=== PATIENT | female | born 1990 | race Caucasian/White ===

== ENCOUNTER → 2017-11-06 16:58 | Emergency (ER) | payer BC, SELFPAY ==
--- NOTE | 2017-11-06 16:58 | DT_ITS ---
This patient was seen during an EMR downtime November 02, 2017 - November 09, 2017. This patient may have a combination of paper and electronic documentation or all paper documentation. All documentation is viewable within the e-chart portion of [facility] for each patient visit.
--- NOTE | 2017-11-06 18:00 | CT_ITS ---
STUDY: CT ABDOMEN AND PELVIS WITHOUT CONTRAST REASON FOR EXAM: Female, 27 years old. Left-sided flank pain RADIATION DOSAGE (If Supplied By Facility): CTDIvol = ( 8.05 ) mGy, DLP = ( 358.65 ) mGycm TECHNIQUE: Transaxial images were obtained from the dome of the diaphragm to the symphysis pubis without oral contrast, and without intravenous contrast. Sagittal and coronal images were reconstructed. Individualized dose optimization techniques were used for this CT. COMPARISON: None. FINDINGS: Lung bases demonstrate no evidence for consolidative process. Bibasilar subsegmental atelectasis is seen. Small 3 to 4 mm nodules in the right lower lobe possibly noncalcified granulomas. No pericardial effusion. Liver and spleen appear unremarkable. Adrenal glands and the pancreas are grossly within normal limits. The gallbladder is nondistended. Bowel gas pattern is nonobstructive. Uterus appears prominent with thickened endometrium and prominent left adnexa possibly a left-sided ovarian cyst measuring approximately 2.4 cm which can be assessed with sonography. Trace amount of free fluid in the pelvis suspected. Colonic diverticulosis. No evidence for acute diverticulitis. Scattered mesenteric lymph nodes also seen which appears slightly prominent in size may related with mesenteric adenitis. Appendix appears nonenlarged. Kidneys demonstrate no evidence for hydronephrosis. Pelvic phleboliths. No evidence for acute lumbar spine fractures. No evidence for spondylolysis. IMPRESSION: No evidence for obstructive uropathy. No evidence for acute appendicitis. Mild colonic diverticulosis without evidence for acute diverticulitis. Few scattered nonspecific mesenteric lymph nodes may related with mesenteric adenitis. Prominent uterus and left adnexa with possible left ovarian cyst which can be further assessed with sonography as clinically deemed essential. Electronically Signed: Johny García, at 14:00 EDT Tel , Service support , CT/Abdomen/Pelvis without Cont
[2017-11-09 09:06] LABS: Red Blood Cells-Urine 0 SEEN /hpf (0-5); White Blood Cells 0 SEEN /hpf (0-5)
[2017-11-09 09:14] LABS: Bacteria 1+ /hpf (None Seen); Color, Urine Yellow (Yellow); Glucose, Dipstick NEGATIVE (Normal); Ketone-Dipstick 15 mg/dl (Negative); Leukocyte Esterase-Dipstick Negative /ul (Negative); Mucous, Urine 1+ /hpf (<or=2+); Nitrite-Dipstick Negative (Negative); Occult Blood-Urine Negative /ul (Negative); Protein-Dipstick Negative (Negative); Specific Gravity, Urine 1.015 (1.002-1.030); Squamous Epithelial Cells - UA 5-10 SEEN /hpf (5-10); Urine Bilirubin Dipstick Negative (Negative); Urine Clarity Clear (Clear); Urine Urobilinogen Normal (Normal)
[2017-11-09 09:15] LABS: Internal QC Validated? YES +Cl - CLEAR BKGD; Pregnancy, Urine Negative Negative
[2017-11-10 03:52] LABS: BUN 10 mg/dL (7-18); Glucose 80 mg/dL (74-106)
[2017-11-10 03:53] LABS: Anion Gap 10 (5-15); BUN/Creat Ratio 11.5 RATIO (10-20); Chloride 106 mmol/L (98-107); Creatinine, Serum 0.87 mg/dL (0.55-1.02); EST Glomerular Filtration Rate 84 mL/min (>60); Est Glom Filt Rate - Afr Amer 102 mL/min (>60); Potassium 3.4 mmol/L (3.5-5.1); Sodium Level 141 mmol/L (136-145)
[2017-11-10 04:02] LABS: White Blood Count 9.4 K/mm3 (4.4-11.0)
[2017-11-10 04:03] LABS: Basophil% 0.5 % (0-1); Eosinophils% 1.9 % (0-5); Hematocrit 46.5 % (37-47); Hemoglobin 15.8 g/dl (12.0-15.0); Lymphocyte % 34.6 % (19-41); Mean Corpuscular Hgb 29.5 pg (27.0-32.0); Mean Corpuscular Volume 86.9 fL (81-99); Mean Platelet Vol. 10.5 fl (6.2-12.0); Monocyte% 6.9 % (0-10); Neutrophil # 5.27 X10^3/uL (2.7-7.7); Neutrophil % 55.9 % (47-70); POSITIVE COUNT NO; POSITIVE DIFFERENTIAL NO; POSITIVE MORPHOLOGY NO; Platelet Count 331 K/mm3 (150-450); RBC Distribution Width CV 12.8 % (11.6-14.6); RBC Distribution Width SD 40.3 fl (35.1-43.9); Red Blood Count 5.35 M/mm3 (4.2-5.4)
[2017-11-10 04:04] LABS: Absolute Lymphocyte Count 3.27 X10^3/ul (0.83-4.51); Absolute Neutrophil Count 5.3 X10^3/uL (2.0-7.7); Basophil# 0.05 X10^3/uL; Eosinophil# 0.18 X10^3/uL; Lymphocyte # 3.27 X10^3/ul (4.0); Monocyte# 0.65 X10^3/uL
== END ==
PROVIDERS: Emergency Provider Emergency Medicine; Family Provider Family Medicine; PCP Family Medicine
DX: R10.9 Unspecified abdominal pain (principal); R82.71 Bacteriuria
CPT/HCPCS: 74176; 80048; 81001; 81025; 85025; 87086; 87088; 96361; 96374; 96375; 99283; J7030; A4216; J2405

== ENCOUNTER → 2018-11-26 12:11 | Outpatient (CLI) | payer BC, SELFPAY ==
[2018-11-09 10:56] VITALS: BMI 28.9
[2018-11-26 13:19] LABS: Estradiol 32.9 pg/mL; Follicle Stimulating Hormone 4.1 mIU/mL; Thyroid Stim Hormone (TSH) 1.85 uIU/mL (0.358-3.74)
== END ==
PROVIDERS: Family Provider Family Medicine; PCP Family Medicine; Referring Provider Obstetrics & Gynecology; Visit Provider Obstetrics & Gynecology
DX: N97.9 Female infertility, unspecified (principal)
CPT/HCPCS: 36415; 82670; 83001; 84443

== ENCOUNTER 2019-02-04 10:05 | Emergency (ER) | payer BC, SELFPAY ==
[2018-11-09 10:56] VITALS: BMI 28.9
[2019-02-04 10:06] VITALS: BP 122/80; PULSE 103; RESP 16; TEMP 36.5; O2SAT 97; BMI 28.4
[2019-02-04] MEDS: 0.9% Normal Saline 1,000 ML 1000 ML IV (11:02)
[2019-02-04] MEDS: proMETHazine 25 MG/ML Syringe 6.25 MG IV (11:03)
--- NOTE | 2019-02-04 11:18 | ED.VIS.GEN ---
History of Present Illness Chief Complaint: Nausea/Vomiting Informant: Patient Onset: Days Narrative: Patient presents to the ED with nausea vomiting for the last 3 days. She states she is approximately 7 weeks . G1, P0. States she has not been able to keep any food or drink down. She contacted her RURAL SOCIOLOGIST and advised to be seen in the ER. Patient denies any abdominal pain, vaginal bleeding, diarrhea, constipation. Past Medical History - Allergies and Home Meds Allergies/Adverse Reactions: Allergies No Known Allergies Allergy (Unverified 02/04/19 10:06) Primary Care Physician: John Colindres MD [Primary Care Provider] - Smoking Status: Never smoker Review of Systems General: Denies: Chills, Fever, Sweats Eyes: Denies: Visual changes - bilaterally, Diplopia ENT: Denies: Rhinorrhea, Sore throat Cardiovascular: Denies: Chest pain, Palpitations Respiratory: Denies: Dyspnea, Cough, Dyspnea on exertion Gastrointestinal: Reports: Nausea, Vomiting. Denies: Abdominal pain, Diarrhea, Melena, Hematochezia Genitourinary: Denies: Dysuria, Hematuria, Frequency Musculoskeletal: Denies: Back pain, Extremity Pain Skin: Denies: Rash, Wounds Neurological: Denies: Headache, Weakness, Numbness Physical Exam Vital Signs/Narrative: Vital Signs Temp Pulse Resp BP Pulse Ox 02/04/19 10:06 97.7 F L 103 H 16 122/80 H 97 General: Well nourished, Well developed, No Acute Distress Head: Normocephalic, Atraumatic Eyes: Perrl, EOMI ENT: No rhinorrhea, Dry mucous membranes Neck: Supple, Nontender Cardiovascular: Regular rate, Regular rhythm, No murmurs Respiratory: No distress, CTA bilaterally, Chest nontender Abdomen: Soft, Nontender, Nondistended, Normal bowel sounds Back: Nontender, Normal Inspection Extremities: Nontender, No edema Skin: Normal color, No rash Neurological: Alert, Oriented x3, Cranial nerves II-XII grossly intact, Normal Strength, Normal Sensation Psychological: Normal affect, Normal Mood Diagnostic/Tx/Re-eval - Medical Decision Making Patient states she is approximately 7 weeks . She has been having nausea and vomiting for the last 3 days. She contacted her RURAL SOCIOLOGIST who referred her to the ED. She appears well nontoxic. Vital signs stable. She is given a liter of IV fluids and IV Phenergan for symptomatic relief. Urinalysis is indicated cystitis. Urine culture is pending. Patient was started on a course of Macrobid. I did give her a prescription for several Phenergan tablets to get her through the weekend until she can follow-up with RURAL SOCIOLOGIST on Thursday. She was educated on signs/symptoms to return to the ED. She is provided discharge instructions. She is agreeable to plan. Impression: Cystitis. Nausea and vomiting. 7 weeks gestation. Disposition: Home stable ED Disposition - Plan for ED Patient: Disposition: Home or Assisted Living Diagnosis: Cystitis, Nausea and vomiting during Instructions: Urinary Tract Infections in Women Prescriptions: Nitrofurantoin Macrocrystals [Macrobid] 100 mg PO Q12 #14 cap Prescription Printed proMETHazine tablet [Phenergan tablet] 25 mg PO Q8H PRN PRN 3 Days #9 tab PRN Reason: Nausea Prescription Printed Referrals: John Colindres MD [Primary Care Provider] -
[2019-02-04 12:11] LABS: Color, Urine Yellow (Yellow); Glucose, Dipstick Normal (Normal); Leukocyte Esterase-Dipstick 25 /ul (Negative); Nitrite-Dipstick Negative (Negative); Occult Blood-Urine Negative /ul (Negative); Protein-Dipstick 15 mg/dl (Negative); Specific Gravity, Urine 1.025 (1.002-1.030); Urine Bilirubin Dipstick Negative (Negative); Urine Clarity Sl. Cloudy (Clear); Urine Urobilinogen Normal (Normal)
[2019-02-04 12:22] LABS: Ketone-Dipstick 150 mg/dl (Negative)
[2019-02-04 12:25] LABS: Red Blood Cells-Urine 0-5 SEEN /hpf (0-5); Squamous Epithelial Cells - UA 5-10 SEEN /hpf (5-10); White Blood Cells 0-5 SEEN /hpf (0-5)
[2019-02-04 12:26] LABS: Bacteria 3+ /hpf (None Seen); Mucous, Urine 3+ /hpf (<or=2+)
[2019-02-04] MEDS: Nitrofurantoin Macrocrystals 100 MG Capsule PO (12:58)
== END 2019-02-04 13:03 | disposition home or self-care (01) ==
PROVIDERS: Emergency Provider Physician Assistant; Family Provider Family Medicine; PCP Family Medicine
DX: O23.11 Infections of bladder in pregnancy, first trimester (principal); O21.8 Other vomiting complicating pregnancy; Z3A.01 Less than 8 weeks gestation of pregnancy
CPT/HCPCS: 81001; 87086; 87088; 96361; 96374; 99285; J7030; A4216

== ENCOUNTER → 2019-02-22 17:52 | Outpatient (CLI) | payer BC, SELFPAY ==
[2019-02-22 08:50] VITALS: BMI 28.4
[2019-02-22 22:50] LABS: Chlamydia Trachomatis by PCR Negative (Negative); Neisserai gonorrhoeae by PCR Negative (Negative); Probe Check PASS; Sample Adequacy Control PASS; Specimen Processing Control PASS
[2019-02-24 16:41] LABS: HPV Reflexed? NOT INDICATED
== END ==
PROVIDERS: Family Provider Family Medicine; PCP Family Medicine; Referring Provider Obstetrics & Gynecology; Visit Provider Obstetrics & Gynecology
DX: Z12.4 Encounter for screening for malignant neoplasm of cervix (principal); Z34.90 Encounter for supervision of normal pregnancy, unspecified, unspecified trimester
CPT/HCPCS: 87086; 87088; 87491; 87591; 88175; G0145

== ENCOUNTER → 2019-03-01 15:43 | Outpatient (CLI) | payer BC, SELFPAY ==
[2019-03-01 15:01] VITALS: BMI 28.4
[2019-03-01 16:29] LABS: Absolute Lymphocyte Count 2.91 X10^3/uL (0.83-4.51); Absolute Neutrophil Count 6.7 X10^3/uL (2.0-7.7); Basophil# 0.05 X10^3/uL; Basophil% 0.5 % (0-1); Eosinophil# 0.16 X10^3/uL; Eosinophils% 1.5 % (0-5); Hematocrit 40.7 % (37-47); Hemoglobin 13.7 g/dL (12.0-15.0); Lymphocyte # 2.91 X10^3/ul (4.0); Mean Corp Hgb Conc 33.7 g/dL (32-36); Mean Corpuscular Hgb 29.8 pg (27.0-32.0); Mean Corpuscular Volume 88.5 fL (81-99); Monocyte# 0.59 X10^3/uL; Monocyte% 5.7 % (0-10); NRBC Flagged by Analyzer 0 % (0-5); Neutrophil # 6.65 X10^3/uL (2.7-7.7); Neutrophil % 63.9 % (47-70); Platelet Count 343 K/mm3 (150-450); RBC Distribution Width CV 12.2 % (11.6-14.6); RBC Distribution Width SD 39.7 fl (35.1-43.9); White Blood Count 10.4 K/mm3 (4.4-11.0)
[2019-03-01 17:48] LABS: HIV - WCH Non-Reactive (Nonreactive)
[2019-03-04 02:41] LABS: Rapid Plasmin Reagin (RPR) NONREACTIVE (NONREACTIVE)
== END ==
PROVIDERS: Family Provider Family Medicine; PCP Family Medicine; Referring Provider Obstetrics & Gynecology; Visit Provider Obstetrics & Gynecology
DX: Z34.90 Encounter for supervision of normal pregnancy, unspecified, unspecified trimester (principal)
CPT/HCPCS: 36415; 85025; 86592; 86703; 86762; 86850; 86900; 86901

== ENCOUNTER 2019-03-02 20:46 | Emergency (ER) | payer BC, SELFPAY ==
[2019-03-01 15:01] VITALS: BMI 28.4
[2019-03-02 20:46] VITALS: BP 117/70; PULSE 100; RESP 13; TEMP 36.6; O2SAT 98; BMI 27.3
--- NOTE | 2019-03-02 21:07 | ED.DCSUM_ITS ---
- ER Visit Summary Date of Service: 03/02/19 Chief Complaint: Headache with nausea and vomiting History of Present Illness: The patient is a 29 F history of migraines and currently 9 weeks . Ab0. Patient states last evening or gradual onset of headache worse today. It is across her forehead last night now it is all over. Associated nausea vomiting. No fever. No sinus symptoms. No neck pain. No head trauma. She is not on blood thinners. She gets migraines and is typical for 1 of her migraines. Physical Examination: Young female no distress vital signs stable afebrile. Sit in a darkened room. HEENT exam pupils are reactive light. No facial trauma. No facial droop. Normal speech. Scalp nontender. Neck nontender no lymphadenopathy no meningismus. Able to touch chin to chest. Lungs are clear. Heart regular rhythm no murmur. Abdomen soft nontender normal bowel sounds no peritoneal signs. He is moves all 4. Calves nontender. No edema. Neurologically she is awake and alert with no focal motor or sensory deficits. Equal symmetrical employee relations manager strength. Dorsi plantarflexion intact. Fingertip to nose and [id number] within normal limits. Her NIH score is 0. Back nontender. Skin unremarkable. No rashes. Test Results: None Emergency Department Course and Treatment: Patient treated with IV fluids, Benadryl and Phenergan. Repeat exam at 2209 improving. Headache is 50% resolved. She will be given p.o. Tylenol and rechecked. Treatment Plan: Fluids and rest. Imitrex as needed. Return if worse. Follow-up with her AIR DEFENSE ARTILLERY SENIOR SERGEANT. Disposition: Discharge Impression: Acute cephalgia with a history of migraines First trimester This note was generated with Apakauation software. It may contain incorrect words, spelling, and punctuation that were not noted in review of the chart prior to signing ED Disposition - Plan for ED Patient: Referrals: John Colindres MD [Primary Care Provider] -
[2019-03-02] MEDS: 0.9% Normal Saline 1,000 ML 1000 ML IV (21:10)
[2019-03-02] MEDS: DiphenhydrAMINE 50 MG/ML Syringe 25 MG IV (21:11)
[2019-03-02] MEDS: proMETHazine 25 MG/ML Syringe 12.5 MG IV (21:11)
--- NOTE | 2019-03-02 22:10 | ED.VISSUMM ---
- ER Visit Summary Date of Service: 03/02/19 Chief Complaint: Headache History of Present Illness: The patient is a 29 F history of migraine headaches and 9 weeks . Ab0. Patient states she is a history of migraines. Headache started gradually last night. This has been going on all day. No associated fevers. No sinus congestion. No head trauma. She is on no blood thinners. Physical Examination: Young female seated in a darkened room. Vital signs stable afebrile. Initial blood pressure 117/70. She does not look septic or toxic. HEENT exam normal. No signs of trauma to her face or scalp. Pupils are round reactive light. Motions are intact. No facial droop. Neck nontender. No meningismus. No lymphadenopathy. Able to touch chin to chest. Lungs clear to auscultation bilaterally. Heart regular rhythm no murmur. Abdomen is soft nontender normal bowel sounds no peritoneal signs. Remedies moves all 4. Neurovascular intact. 5/5 senior information developer strength. Dorsi plantarflexion intact. Fingertip to nose [id number] all within normal limits. Test Results: None Emergency Department Course and Treatment: Patient is with history of migraines and a headache. Her exam is unremarkable. Neurologic exam is normal. Treated with IV fluids IV Phenergan and Benadryl. Headache is about 50% improved. She will be given p.o. Tylenol. And reassess. Treatment Plan: Fluids and rest. Imitrex as needed. Follow-up with her CLOTHING PATTERNMAKER. Disposition: Discharge Impression: Acute cephalgia with a history of migraines First trimester This note was generated with Game[employer] dictation software. It may contain incorrect words, spelling, and punctuation that were not noted in review of the chart prior to signing ED Disposition - Plan for ED Patient: Referrals: John Colindres MD [Primary Care Provider] -
--- NOTE | 2019-03-02 22:16 | ED.DEP ---
ED Disposition - Plan for ED Patient: Disposition: Home or Assisted Living Instructions: ED, Migraine (Classical) Prescriptions: Sumatriptan Succinate [Imitrex] 25 mg PO Q4H PRN PRN #10 tab PRN Reason: Headache Prescription Printed Referrals: Carmen Garcia MD [STAFF PHYSICIAN] - As Needed Additional Instructions: Plenty of fluids and rest. Imitrex as needed for migraine headache. Phenergan as needed for nausea. Follow-up with your HAZMAT CDL A DRIVER as needed. Return to ER feeling worse.
[2019-03-02] MEDS: Nalbuphine 10 MG/ML Ampul IV (22:37)
[2019-03-02 23:49] VITALS: BP 104/71; PULSE 61; O2SAT 98
--- NOTE | 2019-03-02 23:49 | ED.RN ---
DR. PARKER MADE AWARE OF PATIENT'S BP BEING LOWER WHEN SHE WAS LAYING IN BED. 91/48, 97/66 THAN 89/51 WHEN STANDING. NO SYMPTOMS NOTED. ON RECHECK AGAIN BP UP TO 104/71. DR. PARKER SAID THAT LONG SHE DOESN'T HAVE ANY SYMPTOMS SHE SHOULD BE OK AND RETURN IF NEEDED.
== END 2019-03-02 23:51 | disposition home or self-care (01) ==
PROVIDERS: Emergency Provider Emergency Medicine; Family Provider Family Medicine; PCP Family Medicine
DX: O99.351 Diseases of the nervous system complicating pregnancy, first trimester (principal); G43.909 Migraine, unspecified, not intractable, without status migrainosus; O21.9 Vomiting of pregnancy, unspecified; Z79.899 Other long term (current) drug therapy; Z3A.09 9 weeks gestation of pregnancy
CPT/HCPCS: 96361; 96374; 96375; 99283; J7030; A4216

== ENCOUNTER → 2019-06-03 08:31 | Outpatient (CLI) | payer BC, SELFPAY ==
[2019-04-26 13:33] VITALS: BMI 27.3
[2019-05-26 13:28] VITALS: BMI 27.3
--- NOTE | 2019-06-03 08:33 | US_ITS ---
STUDY: ABDOMINAL ULTRASOUND - RIGHT UPPER QUADRANT REASON FOR VISIT: Female, 29 years old RUQ RUQ Pain US - GB, Liver, Abdomen -- RUQ PAIN X 2 MONTHS -- PATIENT IS 22 WEEKS TECHNIQUE: Ultrasound evaluation of the right upper quadrant was performed with real-time and static lind-scale imaging. TECHNICAL QUALITY: Adequate. COMPARISON: None. FINDINGS: Liver: The liver measures 15.2 cm. There is normal echogenicity of the liver. The bile ducts are within normal limits. There is hepatic color flow. The direction of portal flow is hepatopetal. There is no demonstrated mass lesion. Gallbladder: Normal distended gallbladder. The gallbladder wall measures 2.6 mm. There is a negative sonographic Amezquita''s sign. There is no pericholecystic fluid. There is minimal biliary sludge dependent within the gallbladder. Common Bile Duct (C.B.D.): The common bile duct measures 3.0 mm. Pancreas: There is normal echogenicity of the visualized pancreas. There is no demonstrated pancreatic mass or cyst. Right Kidney: Normal size of the right kidney. The right kidney measures 11.0 x 6.2 x 5.0 cm. Normal renal cortex. The right cortex measures 1.6 cm. There is no demonstrated renal mass or cyst. There is no right hydronephrosis. US/Abdomen Limited IMPRESSION: 1. Minimal gallbladder sludge without shadowing stones or sonographic evidence of biliary obstruction. Electronically Signed: Fidel Contreras MD ([place]) at 12:48 EST , Service support ,
== END ==
PROVIDERS: Family Provider Family Medicine; PCP Family Medicine; Referring Provider Obstetrics & Gynecology; Visit Provider Obstetrics & Gynecology
DX: R10.11 Right upper quadrant pain (principal)
CPT/HCPCS: 76705

== ENCOUNTER → 2019-07-14 12:41 | Outpatient (CLI) | payer BC, SELFPAY ==
[2019-07-01 14:50] VITALS: BMI 27.3
[2019-07-14 13:27] LABS: Absolute Lymphocyte Count 2.28 X10^3/uL (0.83-4.51); Absolute Neutrophil Count 11.5 X10^3/uL (2.0-7.7); Basophil# 0.05 X10^3/uL; Basophil% 0.3 % (0-1); Eosinophil# 0.18 X10^3/uL; Eosinophils% 1.2 % (0-5); Hematocrit 35.7 % (37-47); Hemoglobin 11.5 g/dL (12.0-15.0); Lymphocyte # 2.28 X10^3/ul (4.0); Lymphocyte % 15.1 % (19-41); Mean Corp Hgb Conc 32.2 g/dL (32-36); Mean Corpuscular Hgb 28.5 pg (27.0-32.0); Mean Corpuscular Volume 88.4 fL (81-99); Mean Platelet Vol. 9.5 fl (6.2-12.0); Monocyte# 0.75 X10^3/uL; NRBC Flagged by Analyzer 0 % (0-5); Neutrophil # 11.53 X10^3/uL (2.7-7.7); Neutrophil % 76.4 % (47-70); Platelet Count 325 K/mm3 (150-450); RBC Distribution Width CV 13.3 % (11.6-14.6); RBC Distribution Width SD 43.5 fl (35.1-43.9); Red Blood Count 4.04 M/mm3 (4.2-5.4); White Blood Count 15.1 K/mm3 (4.4-11.0)
[2019-07-14 13:36] LABS: Glucose Challenge Gest 1H 50g 121 mg/dL (70-140)
[2019-07-15 09:01] LABS: Hepatitis B Surface Antigen Non-Reactive (Nonreactive)
== END ==
PROVIDERS: PCP Family Medicine; Referring Provider Obstetrics & Gynecology; Visit Provider Obstetrics & Gynecology
DX: Z34.01 Encounter for supervision of normal first pregnancy, first trimester (principal)
CPT/HCPCS: 36415; 82950; 85025; 86850; 86900; 86901; 87340

== ENCOUNTER → 2019-07-18 09:17 | Outpatient (CLI) | payer BC, SELFPAY ==
[2019-07-18 08:59] VITALS: BMI 27.3
[2019-07-18 09:49] LABS: ROM Internal Control Test YES-OK TO RESULT pt. (Internal QC); ROM Patient Test Negative (Negative)
== END ==
PROVIDERS: PCP Family Medicine; Referring Provider Nurse Practitioner Women's Health; Visit Provider Nurse Practitioner Women's Health
DX: O26.899 Other specified pregnancy related conditions, unspecified trimester (principal); N89.8 Other specified noninflammatory disorders of vagina
CPT/HCPCS: 84112

== ENCOUNTER → 2019-08-12 07:59 | Outpatient (CLI) | payer BC, SELFPAY ==
[2019-07-28 13:16] VITALS: BMI 27.3
[2019-08-11 13:37] VITALS: BMI 34.6
--- NOTE | 2019-08-12 08:06 | US_ITS ---
STUDY: SECOND AND THIRD TRIMESTER OBSTETRICAL ULTRASOUND - LIMITED REASON FOR EXAM: Female, 29 years old SARA LMP: December 27, 2018. PRIOR ULTRASOUND: None. TECHNIQUE: Transabdominal TECHNICAL QUALITY: Adequate. FINDINGS: There is a single intrauterine fetus. The fetus is in a cephalic presentation. There is demonstrated cardiac activity with a heart rate of 153 bpm. There is a normal amniotic fluid volume. The largest amniotic fluid pocket measures 7.7 cm. The amniotic fluid index (SARA) is 22.5 cm. This is in the 90th percentile suggestive of polyhydramnios. The placenta is anterior in location and is not low lying. There are Grade 1 placental changes. The cervix measures 3.9 cm cm in length. Age by LMP: 32 weeks, 3 days. CUAUHTEMOC by LMP: October 04, 2019. US/OB Limited (No Biometrics) IMPRESSION: Elevated amniotic fluid index. Electronically Signed: Rudolph Cadena, at 9:56 EDT , Service support ,
== END ==
PROVIDERS: PCP Family Medicine; Referring Provider Obstetrics & Gynecology; Visit Provider Obstetrics & Gynecology
DX: O40.9XX0 Polyhydramnios, unspecified trimester, not applicable or unspecified (principal); Z3A.32 32 weeks gestation of pregnancy
CPT/HCPCS: 76815

== ENCOUNTER → 2019-08-24 15:23 | Outpatient (CLI) | payer BC, SELFPAY ==
[2019-08-24 15:04] VITALS: BMI 34.6
[2019-08-24 15:35] LABS: Absolute Lymphocyte Count 2.29 X10^3/uL (0.83-4.51); Absolute Neutrophil Count 10.2 X10^3/uL (2.0-7.7); Basophil# 0.06 X10^3/uL; Basophil% 0.4 % (0-1); Eosinophil# 0.13 X10^3/uL; Eosinophils% 0.9 % (0-5); Hematocrit 36.9 % (37-47); Lymphocyte # 2.29 X10^3/ul (4.0); Lymphocyte % 16.5 % (19-41); Mean Corp Hgb Conc 32.5 g/dL (32-36); Mean Corpuscular Hgb 27.8 pg (27.0-32.0); Mean Corpuscular Volume 85.4 fL (81-99); Mean Platelet Vol. 9.2 fl (6.2-12.0); Monocyte# 1.11 X10^3/uL; NRBC Flagged by Analyzer 0 % (0-5); Neutrophil # 10.15 X10^3/uL (2.7-7.7); Platelet Count 381 K/mm3 (150-450); RBC Distribution Width CV 13.2 % (11.6-14.6); RBC Distribution Width SD 40.5 fl (35.1-43.9); Red Blood Count 4.32 M/mm3 (4.2-5.4); White Blood Count 13.9 K/mm3 (4.4-11.0)
[2019-08-24 15:52] LABS: ALB/GLOB Ratio 0.8 RATIO (0.9-2.4); AST(SGOT) 14 U/L (15-37); Alanine Aminotransfer ALT/SGPT 14 U/L (13-56); Albumin, Serum 2.7 g/dL (3.2-5.0); Alkaline Phosphatase 133 U/L (45-117); Anion Gap 8 (5-15); BUN 7 mg/dL (7-18); BUN/Creat Ratio 9.4 RATIO (10-20); Calcium,Total 8.6 mg/dL (8.5-10.1); Chloride 108 mmol/L (98-107); Creatinine, Serum 0.74 mg/dL (0.55-1.02); EST Glomerular Filtration Rate 99 mL/min (>60); Est Glom Filt Rate - Afr Amer 119 mL/min (>60); Globulin 3.6 g/dL (2.2-4.2); Glucose 98 mg/dL (74-106); Potassium 3.7 mmol/L (3.5-5.1); Protein, Total 6.3 g/dL (6.4-8.2); Sodium Level 140 mmol/L (136-145)
[2019-08-24 17:21] LABS: Protein, Urine (Random) 13.8 mg/dL (<11.9); Protein:Creat Ratio 80 mg/g CRE (0-200)
== END ==
PROVIDERS: PCP Family Medicine; Referring Provider Nurse Practitioner Women's Health; Visit Provider Nurse Practitioner Women's Health
DX: Z34.90 Encounter for supervision of normal pregnancy, unspecified, unspecified trimester (principal)
CPT/HCPCS: 36415; 80053; 82570; 84156; 85025

== ENCOUNTER → 2019-09-09 15:01 | Outpatient (CLI) | payer BC, SELFPAY ==
[2019-09-09 14:40] VITALS: BMI 34.6
[2019-09-09 15:46] LABS: Absolute Lymphocyte Count 2.62 X10^3/uL (0.83-4.51); Basophil# 0.03 X10^3/uL; Basophil% 0.2 % (0-1); Eosinophil# 0.15 X10^3/uL; Hematocrit 34.3 % (37-47); Lymphocyte # 2.62 X10^3/ul (4.0); Lymphocyte % 17.5 % (19-41); Mean Corp Hgb Conc 32.1 g/dL (32-36); Mean Corpuscular Hgb 26.7 pg (27.0-32.0); Mean Corpuscular Volume 83.3 fL (81-99); Mean Platelet Vol. 9.4 fl (6.2-12.0); Monocyte# 0.96 X10^3/uL; Monocyte% 6.4 % (0-10); NRBC Flagged by Analyzer 0 % (0-5); Neutrophil # 11.01 X10^3/uL (2.7-7.7); Neutrophil % 73.8 % (47-70); Platelet Count 395 K/mm3 (150-450); RBC Distribution Width CV 13.8 % (11.6-14.6); RBC Distribution Width SD 41.7 fl (35.1-43.9); Red Blood Count 4.12 M/mm3 (4.2-5.4); White Blood Count 14.9 K/mm3 (4.4-11.0)
[2019-09-09 16:07] LABS: ALB/GLOB Ratio 0.7 RATIO (0.9-2.4); AST(SGOT) 15 U/L (15-37); Alanine Aminotransfer ALT/SGPT 17 U/L (13-56); Albumin, Serum 2.5 g/dL (3.2-5.0); Alkaline Phosphatase 146 U/L (45-117); Anion Gap 8 (5-15); BUN 8 mg/dL (7-18); BUN/Creat Ratio 13.9 RATIO (10-20); Calcium,Total 8.5 mg/dL (8.5-10.1); Chloride 109 mmol/L (98-107); Creatinine, Serum 0.57 mg/dL (0.55-1.02); EST Glomerular Filtration Rate 133 mL/min (>60); Est Glom Filt Rate - Afr Amer 161 mL/min (>60); Globulin 3.5 g/dL (2.2-4.2); Glucose 102 mg/dL (74-106); Potassium 3.7 mmol/L (3.5-5.1); Sodium Level 140 mmol/L (136-145)
[2019-09-09 17:52] LABS: Protein, Urine (Random) 12.2 mg/dL (<11.9); Protein:Creat Ratio 77 mg/g CRE (0-200)
== END ==
LOC: LAB 15:05 → LABSPEC 16:06
PROVIDERS: PCP Family Medicine; Referring Provider Nurse Practitioner Women's Health; Visit Provider Nurse Practitioner Women's Health
DX: Z34.90 Encounter for supervision of normal pregnancy, unspecified, unspecified trimester (principal)
CPT/HCPCS: 36415; 80053; 82570; 84156; 85025; 87081

== ENCOUNTER → 2019-09-15 08:06 | Outpatient (CLI) | payer BC, SELFPAY ==
[2019-09-09 14:40] VITALS: BMI 34.6
--- NOTE | 2019-09-15 08:09 | US_ITS ---
STUDY: SECOND AND THIRD TRIMESTER OBSTETRICAL ULTRASOUND REASON FOR EXAM: Female, 29 years old. growth. LMP: December 27, 2018 TECHNIQUE: Transabdominal TECHNICAL QUALITY: Adequate. PRIOR ULTRASOUND: August 12, 2019 and September 15, 2019 FINDINGS: There is a single intrauterine fetus. The fetus is in a cephalic presentation. There is demonstrated cardiac activity with a heart rate of 1:30 bpm. There is a normal amniotic fluid volume. The largest amniotic fluid pocket measures 7.77 cm. The amniotic fluid index (SARA) is 17.97 cm. There is debris within the amniotic fluid. The placenta is anterior in location and is not low lying. There are Grade 3 placental changes. The cervix is obscured. BIOMETRY: BPD: 9.28 cm: 37 weeks, 5 days HC: 33.1 cm: 37 weeks, 5 days AC: 34.23 cm: 38 weeks, 0 days FL: 7.26 cm: 37 weeks, 1 days CI: 81.3 FL/BPD: 78.2 FL/HC: 21.9 FL/AC: 21.2 HC/AC: 0.97 age by current US: 37 weeks, 6 days. CUAUHTEMOC by current US: September 30, 2019. Estimated weight: 3316 grams, +/- 491 grams, 69 %. Age by LMP: 37 weeks, 2 days. CUAUHTEMOC by LMP: October 04, 2019. ANATOMY: The study was not performed for anatomy. There is no visualized anatomic abnormality. US/OB Limited With Biometrics IMPRESSION: 1. Live single intrauterine at 37 weeks, 6 days. CUAUHTEMOC is September 30, 2019. 2. EFW of 3316 g. 3. SARA of 17.97 cm. 4. Anterior grade 3 placenta. 5. Vertex presentation. Electronically Signed: Solomon Cesar DO at 16:03 EDT Tel [phone], Service support ,
--- NOTE | 2019-09-15 08:09 | US_ITS ---
STUDY: OBSTETRICAL ULTRASOUND - BIOPHYSICAL PROFILE REASON FOR EXAM: Female, 29 years old bpp- well being PRIOR ULTRASOUND: None. TECHNIQUE: Transabdominal TECHNICAL QUALITY: Adequate. FINDINGS: There is a single intrauterine fetus. The fetus is in a cephalic presentation. There is demonstrated cardiac activity with a heart rate of 138 bpm. There is a normal amniotic fluid volume. The largest amniotic fluid pocket measures 7.7 cm. The amniotic fluid index (SARA) is 17.1 cm. The placenta is anterior in location and is not low lying. There are Grade 0 placental changes. Age by LMP: 37 weeks, 2 days. CUAUHTEMOC by LMP: 10/04/2019. age by prior US: 37 weeks, 6 days. CUAUHTEMOC by prior US: 09/30/2019. BIOPHYSICAL PROFILE: Breathing Movements (FBM): 2 Gross Body Movements (GBM): 2 Tone (FT): 2 Amniotic Fluid Volume (AFV): 2 TOTAL SCORE: / US/Biophysical Profile IMPRESSION: Normal biophysical profile of 01/06. Electronically Signed: Souleymane Gonsalves, at 13:17 EDT Tel , Service support ,
== END ==
PROVIDERS: PCP Family Medicine; Referring Provider Obstetrics & Gynecology; Visit Provider Obstetrics & Gynecology
DX: O26.843 Uterine size-date discrepancy, third trimester (principal); Z3A.37 37 weeks gestation of pregnancy
CPT/HCPCS: 76816; 76818

== ENCOUNTER 2019-09-19 12:00 | Outpatient (RCR) | payer BC, SELFPAY ==
[2019-08-11 13:37] VITALS: BMI 34.6
--- NOTE | 2019-08-16 16:27 | HP.PTEVAL_ITS ---
Patient's Visit Information RAGHAV BILLY is a 29 year old F referred to Physical Therapy by JR Villanueva with a diagnosis of Pain with . Date of Evaluation: 08/16/19 Physical Therapist: Esther Lester DPT - Visit Plan Frequency: 2x /Week Duration: 4 Weeks Plan: Aquatic Therapy- focus on core strength/stabilization - Subjective Subjective: 33 weeks pregant with first baby- leg numbness on the right side and swollen ankles. They are monitoring her for blood pressure and ketones in her urine. She was seeing chiro and they are closed due to the virus- she was getting better and her MD wanted her to come to PT. She has pain in the right leg- and low back all along the side. She also feels like she was kicked in her private parts. She has extra fluid and he moves around a lot. The pain is worst when she lays on that side and when she is at work. 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 Describes the pain as sharp/shooting and feels compression on the leg. Worst: 7/10 Best: 0/10 Eases: breathe, elevate, ice. No problems before being . They have no plans to let her go past her due date and the baby is already #5. Insidous onset for about a month- had 3 apts with chiro before she closed. Sleep: disturbed. Is currently still working. PMHx: none Meds: prenatals. Goes back to OB next week- [facility] - Objective Posture: FH, RS- can correct with verbal cues but does not maintain. Gait: no deviation noted. SLS: 30 sec mild hip drop. HR/TR: WNL. ROM: WNL in all planes. Strength: Core: fair, Hip: 4+/5, Knee: 5/5, Ankle: 5/5. Flex: HS: mild, Gastroc: mild. Special Test: Slump: negative, Dural Signs: negative - Goals Goal 1:: Patient will be I with HEP and progression Goal Time Frame: 4-6 Weeks Goal 2:: Patient will maintain proper posture t/o tx session to demo increased core s/s Goal Time Frame: 4-6 Weeks Goal 3:: Patient will report no more than 3/10 pain for 1 week Goal Time Frame: 4-6 Weeks - Rehabilitation Potential Physical Therapy Diagnosis: Patient presents with hypomobility- she has decreased core strength and stabilization Rehabilitation Potential: Fair - Anticipated Interventions Patient/Client Instruction: Educate patient on: Benefits of Fitness Program Therapeutic Exercise to Include: Strength training, Endurance training, Balance training, Coordination, Agility training, Body mechanics, Postural training, Flexibilty training, Gait and locomotor training, Neuromotor development, In an aquatic setting, Dynamic Lumbar Stabilization, Scapular Strength/Stabilization For the Purpose of:: To improve muscle performance and motor function Thank you for the opportunity to evaluate your patient. For Medicare and Medicare HMO plans, please review the plan of care and approve it. It will need to be FAXED BACK to us at [phone] for Medicare purposes. For Medicare only, by signing this I certify the plan of care. Please let me know if there are questions or concerns regarding this plan of care. Physician Signature: Date:
--- NOTE | 2019-09-19 16:48 | HP.PTDCSUM ---
It has been my pleasure to treat RAGHAV BILLY referred by JR Villanueva, with the diagnosis of Pain with for a total of 10 visit(s). Discharge Date: Please see the following information for a summary of their discharge status. Subjective: I feel so much beter today right hip Pain Intensity (Out of 10): 0 Lumbar Spine Pain Intensity (Out of 10): 2 % Improvement: 80 Objective/Function: LBP 07/11 this date. Pt is now displaying appropriate posture with all activity. I with HEP. Rx goals achieved Goal 1:: Patient will be I with HEP and progression Goal Progress: Goal Met Goal 2:: Patient will maintain proper posture t/o tx session to demo increased core s/s Goal Progress: Goal Met Goal 3:: Patient will report no more than 3/10 pain for 1 week Goal Progress: Goal Met Plan: Discharge If there are questions or concerns regarding this patient's physical therapy, please feel free to call me at [phone]. Thank you for the referral of this patient. Sincerely, Júnior Barajas, PT, ATC
== END 2019-09-19 19:00 | disposition home or self-care (01) ==
LOC: PT 12:00
PROVIDERS: PCP Family Medicine; Referring Provider Nurse Practitioner Women's Health; Visit Provider Nurse Practitioner Women's Health
DX: M99.04 Segmental and somatic dysfunction of sacral region (principal)
CPT/HCPCS: 97113; 97161; 97164

== ENCOUNTER 2019-09-24 05:27 | Inpatient (IN) | payer BC, SELFPAY ==
[2019-09-22 13:48] VITALS: BMI 34.6
[2019-09-24] VITALS (41 sets, daily range): BP systolic 108–138; BP diastolic 53–86; PULSE 97–144; TEMP 36.3–37.3; O2SAT 96–100; BMI 37.4
--- NOTE | 2019-09-24 06:13 | HP.PCM_ITS ---
- Problem List (1) PROM (premature rupture of membranes) Status: Acute (2) Segmental and somatic dysfunction of sacral region Status: Acute (3) Segmental and somatic dysfunction of thoracic region Status: Acute (4) Segmental and somatic dysfunction of lumbar region Status: Acute (5) Rh negative state in antepartum period Status: Acute Comment: Rhogam given at 28 weeks and delivery (6) History of anxiety Status: Acute Comment: no meds, encouraged counseling (7) Status: Acute Qualifiers: Comment: declines nipt, afp, and carrier screening. anatomy reviewed. (8) Supervision of normal Status: Acute Qualifiers: Comment: PRR CUAUHTEMOC 10/04/19 boy Keaton History Date of Admission: 09/24/19 Final CUAUHTEMOC: 10/04/19 Gestational age: 38 Weeks and 4 Days History of this : This is a 29 year-old, at 38 weeks gestational age presents with clear SROM, no regular ctx no vb. Medical History: Medical History (Last Reviewed 09/22/19 @ 13:36 by Kim Daniels) History of anxiety Z86.59 Allergies No Known Allergies Allergy (Verified 09/22/19 13:36) Home Medications: Home Medications vitamin#30 30 mg iron-10 mg iron-folic acid 1 mg-omg3 capsule 1 cap PO DAILY cap 03/01/19 magnesium 30 mg tablet 30 mg PO DAILY 04/26/19 Smoking Status: Never smoker Alcohol: None Number of Fetus(es): 1 NST - FHR Rate Baby A Baseline: 140 Variability:: Moderate Decelerations:: None FHR Category:: Category I Uterine Activity:: q 6-8 History Past Pregnancies: Past Pregnancies Delivery Date Name GA/ Weeks Outcome Route Wt Sex Labor Length Anesthesia Delivery Location Provider FOB Labs: Social History Smoking Status Never smoker Expected Infant Delivery Method: Spontaneous Vaginal Review of Systems Constitutional: Denies: Fever, Malaise Eyes: Denies: Blurred vision, Vision Change HEENT: Denies: Head Aches, Visual Changes Cardiovascular: Denies: Chest Pain, Palpitations Respiratory: Denies: Cough, Shortness of Breath, Wheezing Gastrointestinal: Denies: Abdominal Pain, Diarrhea, Nausea, Vomiting Genitourinary: Denies: Dysuria, Hematuria Musculoskeletal: Denies: Joint Pain, Muscle pain Skin: Denies: Lesions, Rash Neurological: Denies: Blurred vision, Focal weakness, Headaches Psychiatric: Denies: Anxiety, Depression Endocrine: Denies: Heat/ Cold Intolerance Hematologic/ Lymphatic: Denies: Easy Bruising, Easy Bleeding Physical Exam Vitals: Vital Signs Temp Pulse BP Pulse Ox 98.2 F 102 H 127/79 H 98 09/24/19 05:55 09/24/19 05:55 09/24/19 05:55 09/24/19 06:00 General: Alert, Cooperative, No apparent distress HEENT: Atraumatic, Normocephalic. Negative for: Thyromegaly, Lymphadenopathy Cardiovascular: Regular rate Lungs: Normal air movement Abdomen: Soft, Non Tender, Gravid Neurological: Deep Tendon Reflexes 2+/4 and Symmetrical, Neuro grossly intact. Negative for: Clonus EXTRACTIONS TECHNICIAN: Normal external genitalia. Negative for: Vulvar lesions Estimated gestational size: Appropriate for gestational size Presentation: Cephalic Cervix Dilation (cm): 1.5 Station: -1 Effacement (%): 70 Assessment/Plan All Active Problems (Last Reviewed 09/22/19 @ 13:36 by Kim Daniels) PROM (premature rupture of membranes) (Acute) Segmental and somatic dysfunction of sacral region (Acute) Segmental and somatic dysfunction of thoracic region (Acute) Segmental and somatic dysfunction of lumbar region (Acute) Rh negative state in antepartum period (Acute) History of anxiety (Acute) (Acute) Supervision of normal (Acute) Low lying placenta nos or without hemorrhage, second trimester (Resolved) Polyhydramnios (Resolved) RUQ abdominal pain (Resolved) This is a 29 year-old, , at weeks gestational age presents with PROM. Patient presents IOL, plan management for , pitocin. Pain management: open to epidural GBS negative. Management of any complications: None I have reviewed the [facility] and made any clinically relevant updates.
[2019-09-24] MEDS: 0.9% Saline Lock 10 ML Syringe IV (06:15)
[2019-09-24 06:24] LABS: Absolute Lymphocyte Count 2.75 X10^3/uL (0.83-4.51); Absolute Neutrophil Count 11.8 X10^3/uL (2.0-7.7); Basophil# 0.07 X10^3/uL; Basophil% 0.4 % (0-1); Eosinophil# 0.22 X10^3/uL; Eosinophils% 1.4 % (0-5); Hematocrit 35.4 % (37-47); Hemoglobin 11.3 g/dL (12.0-15.0); Lymphocyte # 2.75 X10^3/ul (4.0); Lymphocyte % 17.1 % (19-41); Mean Corp Hgb Conc 31.9 g/dL (32-36); Mean Corpuscular Hgb 26.6 pg (27.0-32.0); Mean Corpuscular Volume 83.3 fL (81-99); Mean Platelet Vol. 9.5 fl (6.2-12.0); Monocyte# 1.05 X10^3/uL; Monocyte% 6.5 % (0-10); NRBC Flagged by Analyzer 0 % (0-5); Neutrophil # 11.75 X10^3/uL (2.7-7.7); Neutrophil % 73.3 % (47-70); Platelet Count 307 K/mm3 (150-450); RBC Distribution Width CV 14.6 % (11.6-14.6); RBC Distribution Width SD 42.7 fl (35.1-43.9); Red Blood Count 4.25 M/mm3 (4.2-5.4); White Blood Count 16.1 K/mm3 (4.4-11.0)
[2019-09-24] MEDS: Lactated Ringers 1,000 ML 50 ML IV (08:26)
[2019-09-24] MEDS: Oxytocin 30 units/NS 500 ml 30 UNITS/500 ML IV.SOLN IV (08:27)
[2019-09-24] MEDS: Ondansetron 4 MG/2 ML Vial IV (12:22)
[2019-09-24] MEDS: fentaNYL 100 MCG/2 ML Ampul IV (13:12)
[2019-09-24] MEDS: Lactated Ringers 500 ML 999 ML IV (15:03)
[2019-09-24] MEDS: proCHLORPERazine 10 MG/2 ML Vial IV (15:07)
[2019-09-24] MEDS: fentaNYL-bupivacaine (epidural) 100 ML BAG EPIDURAL ×2 (15:41→20:15)
[2019-09-24] MEDS: Lactated Ringers 1,000 ML 250 ML IV (18:10)
[2019-09-24] MEDS: Amnioinfusion- 0.9% NS 1,000 ML IV.SOLN. 1000 ML INTRA-UTER (20:31)
[2019-09-24] MEDS: Lactated Ringers 1,000 ML 200 ML IV (23:26)
[2019-09-25] VITALS (19 sets, daily range): BP systolic 99–131; BP diastolic 50–71; PULSE 64–130; RESP 14–18; TEMP 36.8–37.8; O2SAT 96
[2019-09-25] MEDS: fentaNYL-bupivacaine (epidural) 100 ML BAG EPIDURAL (01:09)
--- NOTE | 2019-09-25 02:58 | PCM.OPRPT ---
Problem List (1) PROM (premature rupture of membranes) Status: Acute (2) Segmental and somatic dysfunction of sacral region Status: Acute (3) Segmental and somatic dysfunction of thoracic region Status: Acute (4) Segmental and somatic dysfunction of lumbar region Status: Acute (5) Rh negative state in antepartum period Status: Acute Comment: Rhogam given at 28 weeks and delivery (6) History of anxiety Status: Acute Comment: no meds, encouraged counseling (7) Status: Acute Qualifiers: Comment: declines nipt, afp, and carrier screening. anatomy reviewed. (8) Supervision of normal Status: Acute Qualifiers: Comment: PRR CUAUHTEMOC 10/04/19 boy [place] Vaginal Delivery Maternal Presentation: Active Labor prom Method of Induction: Pitocin Amniotic Membrane Rupture Type: Spontaneous Amniotic Fluid Description: Clear Final CUAUHTEMOC: 10/04/19 Gestational age: 38 Weeks and 5 Days Date of Procedure: 09/25/19 Type of Anesthesia: Epidural Multi Select Codes - Urinary/Genital Urinary/Genital CPT Codes: 61622 Vaginal Delivery [facility]
[2019-09-25] MEDS: Oxytocin 30 units/NS 500 ml 30 UNITS/500 ML IV.SOLN 334 UNITS IV (03:35)
[2019-09-25] MEDS: Naproxen 250 MG Tablet 500 MG PO ×2 (15:08→23:06)
[2019-09-25] MEDS: Acetaminophen 500 MG Tablet 1000 MG PO (17:51)
[2019-09-26 01:00] VITALS: BP 121/45; PULSE 99; RESP 18; TEMP 36.7
--- NOTE | 2019-09-26 07:37 | DCINST_ITS ---
Discharge Diet: No Restrictions Discharge Activity: Return to Normal Activity, May not drive while taking narcotic pain medications., May Shower May resume sexual activity in: 4-6 weeks Call your doctor if your incision/area has: Continuous Slow Oozing, Sudden Increased Bleeding, Increased Pain/ Swelling, Increased Redness, Foul Smelling Discharge Additional Instructions: If you experience any of the following, contact your healthcare provider. * Bleeding that soaks a pad every hour for 2 hours * Fever 100.4 or higher * Unrelieved incision or abdominal pain * Swelling, redness, discharge or bleeding from your incision or episiotomy site * Your incision begins to separate * Problems urinating (including inability to urinate or burning while urinating). * Visual changes * Severe headache * Flu-like symptoms * Pain or redness in one of both of your breasts * Pain, warmth, tenderness or swelling in your legs, especially the calf area * Frequent nausea and vomiting * Symptoms of depression or anxiety If you experience any of the following, call 911 or go to the nearest Emergency Room. * Chest pain * Problems breathing * Seizure activity * Partial or complete paralysis of a body part, slurred speech, weakness or drooping of the face, or a sudden inability to walk or hold your balance Allergies/Adverse Reactions: Allergies No Known Allergies Allergy (Verified 09/24/19 06:36) Medications to take at Discharge vitamin#30 30 mg iron-10 mg iron-folic acid 1 mg-omg3 capsule 1 cap PO DAILY cap 03/01/19 Please Follow Up With: Carmen Garcia MD - [phone] When: Call to make an appointment with your doctor in 6 weeks. If you had elevated Blood pressure or 4th degree laceration you will need to be seen in 2 weeks. Primary Care Physician: John Colindres MD [Primary Care Provider] - Test Results: Test results from this visit will be discussed in further detail at your follow- up appointment, if applicable.
--- NOTE | 2019-09-26 07:37 | PCM.PN.OB ---
Patient Problems: Active and Suspected Problems (Last Reviewed 09/22/19 @ 13:36 by Kim Daniels) PROM (premature rupture of membranes) (Acute) Subjective: doing well no complaints pain controlled no CP SOB N V ambulating well tolerating po lochia moderate, going well - Physical Exam Vitals/I&O's: Vital Signs Temp Pulse Resp BP Pulse Ox 98.0 F 99 18 121/45 H 96 09/26/19 01:00 09/26/19 01:00 09/26/19 01:00 09/26/19 01:00 09/25/19 03:44 Oxygen Delivery Method Room Air Weight: 204 lb 9.423 oz Body Mass Index (BMI) 37.4 Intake and Output for Last 24 Hours 09/24/19 09/25/19 09/26/19 23:59 23:59 23:59 Intake Total 3862.90 / 3862.90 1414.23 / 1414.23 Output Total 800 / 800 Balance 3862.90 / 3862.90 614.23 / 614.23 General: Alert, Oriented x3 Laboratory Results 09/25/19 05:36: Screen NEGATIVE Current Medications Acetaminophen (Tylenol) 1,000 mg PO Q8H PRN PRN PRN Reason: Pain Score 1-3/10 Last Admin: 09/25/19 17:51 Dose: 1,000 mg Documented by: Bisacodyl (Dulcolax) 10 mg RECTAL UD PRN PRN Reason: If no BM Dibucaine (Dibucaine) 1 applic TOPICAL TID PRN PRN; Protocol PRN Reason: Discomfort Hydrocortisone (Hytone) 1 applic TOPICAL TID PRN PRN; Protocol PRN Reason: Discomfort Methylergonovine Maleate (Methergine) 0.2 mg IM X1 PRN PRN Reason: Excess bleeding/uterine atony Naproxen (Naprosyn) 500 mg PO Q8H PRN PRN PRN Reason: Pain Score 1-3/10 Last Admin: 09/25/19 23:06 Dose: 500 mg Documented by: Ondansetron HCl (Zofran) 4 mg IV Q4H PRN PRN PRN Reason: Nausea Oxycodone HCl (Oxyir) 5 - 10 mg PO Q4H PRN PRN PRN Reason: Pain Score 4-10/10 Senna/Docusate Sodium (Senokot-S, Brittany-Colace) 1 - 2 tablet PO DAILY PRN PRN PRN Reason: Constipation Simethicone (Mylicon) 80 mg PO PCHS PRN PRN Reason: Indigestion/Stomach pain Sodium Chloride () 5 - 15 ml IV UD PRN PRN Reason: SALINE FLUSH Medical Necessity - Tobacco Use Smoking Status: Never smoker Assessment/Plan All Active Problems (Last Reviewed 09/22/19 @ 13:36 by Kim Daniels) PROM (premature rupture of membranes) (Acute) Segmental and somatic dysfunction of sacral region (Acute) Segmental and somatic dysfunction of thoracic region (Acute) Segmental and somatic dysfunction of lumbar region (Acute) Rh negative state in antepartum period (Acute) History of anxiety (Acute) (Acute) Supervision of normal (Acute) Low lying placenta nos or without hemorrhage, second trimester (Resolved) Polyhydramnios (Resolved) RUQ abdominal pain (Resolved) s/p PPD # 1 1. routine post delivery care 2. breast feeding- support given 3. rh positive 4. rubella immune
--- NOTE | 2019-09-26 07:37 | PCM.DCVAG ---
Discharge Diet: No Restrictions Discharge Activity: Return to Normal Activity, May not drive while taking narcotic pain medications., May Shower May resume sexual activity in: 4-6 weeks Call your doctor if your incision/area has: Continuous Slow Oozing, Sudden Increased Bleeding, Increased Pain/ Swelling, Increased Redness, Foul Smelling Discharge Additional Instructions: If you experience any of the following, contact your healthcare provider. Bleeding that soaks a pad every hour for 2 hours Fever 100.4 or higher Unrelieved incision or abdominal pain Swelling, redness, discharge or bleeding from your incision or episiotomy site Your incision begins to separate Problems urinating (including inability to urinate or burning while urinating). Visual changes Severe headache Flu-like symptoms Pain or redness in one of both of your breasts Pain, warmth, tenderness or swelling in your legs, especially the calf area Frequent nausea and vomiting Symptoms of depression or anxiety If you experience any of the following, call 911 or go to the nearest Emergency Room. Chest pain Problems breathing Seizure activity Partial or complete paralysis of a body part, slurred speech, weakness or drooping of the face, or a sudden inability to walk or hold your balance Allergies/Adverse Reactions: Allergies No Known Allergies Allergy (Verified 09/24/19 06:36) Medications to take at Discharge vitamin#30 30 mg iron-10 mg iron-folic acid 1 mg-omg3 capsule 1 cap PO DAILY cap 03/01/19 Please Follow Up With: Carmen Garcia MD - [phone] When: Call to make an appointment with your doctor in 6 weeks. If you had elevated Blood pressure or 4th degree laceration you will need to be seen in 2 weeks. Primary Care Physician: John Colindres MD [Primary Care Provider] - Test Results: Test results from this visit will be discussed in further detail at your follow-up appointment, if applicable.
[2019-09-26 09:30] VITALS: BP 109/57; PULSE 102; RESP 20; TEMP 36.8
[2019-09-26] MEDS: Naproxen 250 MG Tablet 500 MG PO (09:48)
== END 2019-09-26 14:40 | disposition home or self-care (01) | DRG 807 ==
PROVIDERS: Admitting Provider Obstetrics & Gynecology; PCP Family Medicine; Visit Provider Obstetrics & Gynecology
DX: O42.92 Full-term premature rupture of membranes, unspecified as to length of time between rupture and onset of labor (principal); O70.0 First degree perineal laceration during delivery; Z3A.38 38 weeks gestation of pregnancy; Z37.0 Single live birth
CPT/HCPCS: 59025; 59050; 85025; 85461; 86850; 86900; 86901; 90384; 99218; J7030; J7120; A4216; G0378; J2405; J2790

== ENCOUNTER 2019-12-01 01:28 | Observation (INO) | payer BC, SELFPAY ==
[2019-11-14 14:29] VITALS: BMI 37.4
[2019-12-01] VITALS (19 sets, daily range): BP systolic 96–126; BP diastolic 51–81; PULSE 64–90; RESP 14–18; TEMP 36.3–36.8; O2SAT 93–100; BMI 35.9; BMI 32.4; BMI 32.5
--- NOTE | 2019-12-01 01:39 | ED.DCSUM_ITS ---
History of Present Illness Chief Complaint: Abd Pain Informant: Patient Narrative: Stated she is having pain in the right upper quadrant epigastric since dinnertime approximately 7 PM. This is approximately 7 hours ago. She is having continuous cramping aching pain in the right upper quadrant. She also feels it in her right scapular region. She stated she has had attacks like this in the past. She had an ultrasound in June of this year while she was that showed sludge only. No gallstones were seen. She had not followed up with a HIDA scan. She did also have an attack approximately 3 weeks ago but vomited and her symptoms resolved. She had 5 episodes of emesis tonigh t. She was eating steak for her anniversary dinner this evening. Current severity is moderate. She tried Pepto-Bismol and Rolaids with minimal relief. She is 10 weeks vaginal delivery without complication - Past Medical History (1) History of anxiety Status: Acute Comment: no meds, encouraged counseling (2) PROM (premature rupture of membranes) Status: Acute (3) Status: Acute Comment: declines nipt, afp, and carrier screening. anatomy reviewed. (4) Rh negative state in antepartum period Status: Acute Comment: Rhogam given at 28 weeks and delivery (5) Segmental and somatic dysfunction of lumbar region Status: Acute (6) Segmental and somatic dysfunction of sacral region Status: Acute (7) Segmental and somatic dysfunction of thoracic region Status: Acute (8) Supervision of normal Status: Acute Comment: PRR CUAUHTEMOC 10/04/19 boy [place] Past Medical History - Allergies and Home Meds Allergies/Adverse Reactions: Allergies No Known Allergies Allergy (Verified 12/01/19 01:29) Primary Care Physician: John Colindres MD [Primary Care Provider] - Prior records reviewed: Yes Past Medical History: - - See problem list Surgical History: - - Reviewed Lives: With Family Smoking Status: Never smoker Alcohol: None Drugs: None Review of Systems General: Denies: Chills, Fever, Sweats Eyes: Denies: Visual changes - bilaterally, Diplopia ENT: Denies: Rhinorrhea, Sore throat Cardiovascular: Denies: Chest pain, Palpitations Respiratory: Denies: Dyspnea, Cough, Dyspnea on exertion Gastrointestinal: Reports: Abdominal pain, Nausea, Vomiting. Denies: Diarrhea, Melena, Hematochezia Genitourinary: Denies: Dysuria, Hematuria, Frequency Musculoskeletal: Denies: Back pain, Extremity Pain Skin: Denies: Rash, Wounds Neurological: Denies: Headache, Weakness, Numbness Physical Exam Vital Signs/Narrative: Vital Signs Temp Pulse Resp BP Pulse Ox 12/01/19 01:30 97.4 F L 80 18 126/63 H 100 General: Well nourished, Well developed, No Acute Distress Head: Normocephalic, Atraumatic Eyes: Perrl, EOMI ENT: Moist mucous membranes, No rhinorrhea Neck: Supple, Nontender Cardiovascular: Regular rate, Regular rhythm, No murmurs Respiratory: No distress, CTA bilaterally, Chest nontender Abdomen: Soft, Nondistended, Normal bowel sounds, Tender - Shukri right upper quadrant without Amezquita sign. Negative for: Guarding, Rebound tenderness Back: Nontender, Normal Inspection Extremities: Nontender, No edema Skin: Normal color, No rash Neurological: Alert, Oriented x3, Cranial nerves II-XII grossly intact, Normal Strength, Normal Sensation Psychological: Normal affect, Normal Mood Diagnostic/Tx/Re-eval - Medical Decision Making IV fluids Zofran morphine. Lab work obtained lab work shows a leukocytosis. Liver function tests are elevated. CT abdomen pelvis shows early cholecystitis with gallstone. Patient felt much better after treatment. Will be started on antibiotics for early cholecystitis. Discussed with surgery Dr. España. Patient started on Zosyn. Dr. Simon evaluate the patient in the emergency department ED Disposition - Plan for ED Patient: Disposition: Acute Care [facility] Diagnosis: Acute cholecystitis
[2019-12-01 01:44] LABS: Absolute Lymphocyte Count 1.75 X10^3/uL (0.83-4.51); Absolute Neutrophil Count 10.9 X10^3/uL (2.0-7.7); Basophil# 0.06 X10^3/uL; Basophil% 0.4 % (0-1); Eosinophils% 0.7 % (0-5); Hematocrit 43.4 % (37-47); Hemoglobin 13.8 g/dL (12.0-15.0); Lymphocyte # 1.75 X10^3/ul (4.0); Lymphocyte % 12.9 % (19-41); Mean Corp Hgb Conc 31.8 g/dL (32-36); Mean Corpuscular Hgb 26.2 pg (27.0-32.0); Mean Corpuscular Volume 82.4 fL (81-99); Mean Platelet Vol. 9.5 fl (6.2-12.0); Monocyte# 0.68 X10^3/uL; NRBC Flagged by Analyzer 0 % (0-5); Neutrophil % 80.8 % (47-70); Platelet Count 369 K/mm3 (150-450); RBC Distribution Width CV 17.9 % (11.6-14.6); RBC Distribution Width SD 51.2 fl (35.1-43.9); Red Blood Count 5.27 M/mm3 (4.2-5.4); White Blood Count 13.5 K/mm3 (4.4-11.0)
[2019-12-01 01:57] LABS: Internal QC Validated? YES +Cl - CLEAR BKGD; Pregnancy, Serum, hCG Quali. NEGATIVE Negative
[2019-12-01] MEDS: 0.9% Normal Saline 1,000 ML 1000 ML IV (01:58)
[2019-12-01] MEDS: Ondansetron 4 MG/2 ML Vial IV ×2 (01:59→18:23)
[2019-12-01 02:06] LABS: ALB/GLOB Ratio 1.1 RATIO (0.9-2.4); AST(SGOT) 194 U/L (15-37); Alanine Aminotransfer ALT/SGPT 133 U/L (13-56); Albumin, Serum 4.2 g/dL (3.2-5.0); Alkaline Phosphatase 153 U/L (45-117); Anion Gap 7 (5-15); BUN 13 mg/dL (7-18); BUN/Creat Ratio 14.7 RATIO (10-20); Calcium,Total 8.8 mg/dL (8.5-10.1); Chloride 110 mmol/L (98-107); Creatinine, Serum 0.89 mg/dL (0.55-1.02); EST Glomerular Filtration Rate 80 mL/min (>60); Est Glom Filt Rate - Afr Amer 97 mL/min (>60); Estimated Creatinine Clearance 74.43 ml/min; Globulin 3.8 g/dL (2.2-4.2); Glucose 104 mg/dL (74-106); Lipase 227 U/L (73-393); Potassium 3.7 mmol/L (3.5-5.1); Sodium Level 142 mmol/L (136-145)
[2019-12-01] MEDS: Morphine 4 MG/ML Syringe IV (02:10)
--- NOTE | 2019-12-01 02:10 | CT_ITS ---
STUDY: CT ABDOMEN AND PELVIS WITHOUT CONTRAST REASON FOR EXAM: Female, 29 years old. Right upper quadrant pain with nausea and vomiting. Elevated white blood cell count RADIATION DOSAGE (If Supplied By Facility): CTDIvol = ( 9.05 ) mGy, DLP = ( 416.02 ) mGycm TECHNIQUE: Transaxial images were obtained from the dome of the diaphragm to the symphysis pubis without oral contrast, and without intravenous contrast. Sagittal and coronal images were reconstructed. Individualized dose optimization techniques were used for this CT. COMPARISON: 11/06/2017 FINDINGS: Left lung base atelectasis versus scar formation. The visualized portions of the heart are within normal limits. Normal liver. Small calcified stone layering in the mildly distended and questionably thickened gallbladder. No biliary duct dilatation. Normal spleen. Normal pancreas. Normal bilateral adrenal glands. Normal right kidney. Normal left kidney. Normal bilateral ureters. Normal visualized stomach. Normal small intestine. Normal colon. The appendix is visualized and appears normal. Normal abdominal aorta. Normal inferior vena cava. Normal retroperitoneum. Normal urinary bladder. Normal reproductive structures. Normal abdominal wall. Normal osseous structures. CT/Abdomen/Pelvis without Cont IMPRESSION: Cholelithiasis with questionable gallbladder wall thickening, raising concern for possible early acute cholecystitis. Dedicated right upper quadrant ultrasound imaging is recommended for further characterization. Electronically Signed: Donnell Benson MD at 2:35 EDT Tel , Service support ,
[2019-12-01] MEDS: 0.9% Normal Saline 1,000 ML 150 ML IV ×2 (03:28→09:46)
[2019-12-01] MEDS: Morphine 2 MG/ML Syringe IV (03:28)
--- NOTE | 2019-12-01 05:46 | PCM.HP.STD ---
Problem List (1) Cholecystitis, acute with cholelithiasis Status: Acute Qualifiers: Biliary obstruction: without biliary obstruction Qualified Code(s): K80.00 - Calculus of gallbladder with acute cholecystitis without obstruction History of Present Illness Date of Admission: 12/01/19 The patient is a 29 year old F who presents to the emergency room at 1:30 in the morning after having postprandial epigastric right upper quadrant tightness pressure discomfort. She has had spells like this before. She suspected that it was gallbladder disease. She denies fever but she did not take her temperature. She was treated emergency room with narcotics and IV antibiotic and is now feeling improved. Laboratories notable for a white blood cell count of 13.5 and a hemoglobin of 13.8 hematocrit 43.4 platelet count 3 and 69,000. 80% neutrophils. BUN is 13 and creatinine 0.89. AST is elevated at 194. ALT elevated 133. Alkaline phosphatase elevated at 153. Total bilirubin normal at 0.7.. Serum test was negative. COVID-[address] scan was obtained by Dr. Mccord through the emergency room demonstrating cholelithiasis with suspicion for gallbladder wall thickening suspicious for acute cholecystitis. Past Medical History Medical History: Medical History (Last Reviewed 11/14/19 @ 14:28 by Emily Tellez) History of anxiety Z86.59 Allergies No Known Allergies Allergy (Verified 12/01/19 01:29) Home Medications: Ambulatory Orders Medication Instructions Recorded vitamin#30 30 mg iron-10 1 cap PO DAILY cap 03/01/19 mg iron-folic acid 1 mg-omg3 capsule Surgical History: - - Reviewed she is 10 weeks spontaneous vaginal delivery [employer]RESPONDENT History: - - Spontaneous vaginal delivery Lives: With Family Smoking Status: Never smoker Alcohol: None Drugs: None Review of Systems Constitutional: Denies: Chills, Fever HEENT: Denies: Difficulty Swallowing Cardiovascular: Denies: Chest Pain Respiratory: Denies: Cough, Shortness of breath at rest Gastrointestinal: Reports: Abdominal Pain. Denies: Melena Endocrine: Denies: Change in Body Habitus VTE Information - Inpt Only VTE Present on Admission: No Patient Problems: Active and Suspected Problems (Last Reviewed 11/14/19 @ 14:28 by Emily Tellez) Cholecystitis, acute with cholelithiasis (Acute) - Physical Exam Vitals/I&O's: Vital Signs Temp Pulse Resp BP Pulse Ox 97.7 F L 68 16 103/67 98 12/01/19 05:36 12/01/19 05:36 12/01/19 05:36 12/01/19 05:36 12/01/19 05:36 Oxygen Delivery Method Room Air Weight: 196 lb 3.382 oz Body Mass Index (BMI) 35.9 Intake and Output for Last 24 Hours 11/29/19 11/30/19 12/01/19 23:59 23:59 23:59 Intake Total 1100 / 1100 Balance 1100 / 1100 General: Alert, Oriented x3, Cooperative, No apparent distress HEENT: Atraumatic Oral: Moist Mucosa Lungs: Clear to auscultation, Normal air movement Cardiovascular: Regular rate, Regular Rhythm Abdomen: Bowel Sounds Present, Soft, Non Tender, Non-Distended, No Hepato-splenomegaly Extremities: No Calf Tenderness Neurological: - - Normal cognition Psych/Mental Status: Normal Affect Laboratory Results 12/01/19 01:37: WBC 13.5 H, RBC 5.27, Hgb 13.8, Hct 43.4, MCV 82.4, MCH 26.2 L, MCHC 31.8 L, RDW Std Deviation 51.2 H, RDW Coeff of Tanja 17.9 H, Plt Count 369, MPV 9.5, Immature Gran % (Auto) 0.200, Neut % (Auto) 80.8 H, Lymph % (Auto) 12.9 L, [place] % (Auto) 5.0, Eos % (Auto) 0.7, Baso % (Auto) 0.4, Absolute Neuts (auto) 10.9 H, Absolute Lymphs (auto) 1.75, Nucleated RBC % 0 12/01/19 01:37: Sodium 142, Potassium 3.7, Chloride 110 H, Carbon Dioxide 25.0, Anion Gap 7, BUN 13, Creatinine 0.89, Estim Creat Clear Calc 74.43, Est GFR (MDRD) Af Amer 97, Est GFR (MDRD) Non-Af 80, BUN/Creatinine Ratio 14.7, Glucose 104, Calcium 8.8, Total Bilirubin 0.70, AST 194 H, ALT 133 H, Alkaline Phosphatase 153 H, Total Protein 8.0, Albumin 4.2, Globulin 3.8, Albumin/Globulin Ratio 1.1, Lipase 227 12/01/19 01:37: Serum , Qual NEGATIVE 12/01/19 05:23: COVID-19 (LISET) Pending Current Medications Sodium Chloride () 1,000 mls @ 150 mls/hr IV .[id number] [facility] Last Admin: 12/01/19 03:28 Dose: 150 mls/hr Documented by: Assessment/Plan All Active Problems (Last Reviewed 11/14/19 @ 14:28 by Emily Tellez) PROM (premature rupture of membranes) (Acute) Cholecystitis, acute with cholelithiasis (Acute) Segmental and somatic dysfunction of sacral region (Acute) Segmental and somatic dysfunction of thoracic region (Acute) Segmental and somatic dysfunction of lumbar region (Acute) Rh negative state in antepartum period (Acute) History of anxiety (Acute) (Acute) Supervision of normal (Acute) Low lying placenta nos or without hemorrhage, second trimester (Resolved) Polyhydramnios (Resolved) RUQ abdominal pain (Resolved) 29-year-old female presents to the emergency room with epigastric right upper quadrant pain and laboratory and CT imaging findings all consistent with acute cholecystitis cholelithiasis. She has been initiated on IV antibiotics and her she received pain control is more comfortable. I am recommending to her a laparoscopic cholecystectomy with selective cholangiography. We have discussed the technique, benefit, risk, alternatives. She is aware of the COVID-19 pandemic. Her testing is pending. She is aware that the [facility] was reporting a current low local incidence. She has had an opportunity to ask and have questions answered. We will proceed with definitive surgery as operating room timing permits. Marky España M.D., F.A.C.S. Procedure Criteria COVID Risk Discussion: Urgent procedure as discussed in history and physical. Marky España M.D., F.A.C.S.
--- NOTE | 2019-12-01 05:53 | DCINST_ITS ---
Discharge Diet: Light diet - advance as tolerated - if you have questions about your diet instructions, please talk to you doctor. Discharge Activity: May Not Drive - for 3-5 days or while taking narcotic pain medicine. May shower in (days): 1 Lifting Restrictions: 10 pounds Call your doctor if your incision/area has: Continuous Slow Oozing, Sudden Increased Bleeding, Increased Pain/ Swelling, Increased Redness, Foul Smelling Discharge Call your doctor if you observe: Fever of 101 or Higher Suture Line Care: Avoid Pulling/Pushing, Avoid Pinching/Bending Additional Dressing/Incision Instructions:: Change or remove dressing in 3 days. Leave steri-strips in place for 1 week. Allergies/Adverse Reactions: Allergies No Known Allergies Allergy (Verified 12/01/19 01:29) Medications to take at Discharge vitamin#30 30 mg iron-10 mg iron-folic acid 1 mg-omg3 capsule 1 cap PO DAILY cap 03/01/19 Primary Care Physician: John Colindres MD [Primary Care Provider] - Test Results: Test results from this visit will be discussed in further detail at your follow- up appointment, if applicable. Please Follow Up With: Marky España MD - [phone] When: Call to make an appointment to be seen in about 10 days. May be virtual
--- NOTE | 2019-12-01 11:40 | EKG12_ITS ---
Test Reason : PRE OP Blood Pressure : / mmHG Vent. Rate : 066 BPM Atrial Rate : 066 BPM P-R Int : 128 ms QRS Dur : 082 ms QT Int : 422 ms P-R-T Axes : 028 038 031 degrees QTc Int : 442 ms Normal sinus rhythm with sinus arrhythmia Normal ECG Confirmed by EPI REESE, BRITTNEY ([id number]), fan mail editor LORIN SOLORIO ([id number]) on 12/07/2019 10:26:10 AM Referred By: ALANNA Confirmed By:BRITTNEY CHOWDARY MD
--- NOTE | 2019-12-01 11:59 | NURSING ---
family at bedside.
--- NOTE | 2019-12-01 12:09 | NURSING ---
pt to surgery. family at bedside
--- NOTE | 2019-12-01 13:00 | RAD_ITS ---
CLINICAL HISTORY: Female, 29 years old. Abdominal pain PROCEDURE: CHOLANGIOGRAM - transhepatic FLUOROSCOPY TIME (if supplied): ( ) minutes/seconds Placement of the catheter and the procedure were performed by: Operating surgeon Fluoroscopy was provided by survey technologist, who was present in the room time of the procedure. Technique: Single film was performed utilizing fluoroscopic guidance in the AP projection during intraoperative cholangiogram ) Findings: Single film demonstrates patency of the biliary tree without intraluminal filling defects however the distal common bile duct is not seen on the film. There is contrast noted within the duodenum confirming patency of the ducts For more complete information recommend correlation with surgical notes RAD/Cholangiogram/ O R,Initial IMPRESSION: Fluoroscopic guided transhepatic cholangiogram Electronically Signed: Alton Gomez MD at 21:12 EDT , Service support ,
--- NOTE | 2019-12-01 13:00 | GALL_PTH ---
PATIENT: RAGHAV BILLY LOC: [facility]3 U#:[id number] AGE/SX: 29/F ROOM: MS322 RE12/01/[address]: Dr. Marky España MD : 1990 BED: 1 DIS: 12/02/2019 SPEC #: [id number] RECD: 12/05/19 07:57 STATUS: TC RECamron #: [id number] AJ: 12/01/19 13:[address]: Marky España DEPT: SURGICAL PATHOLOGY RECD BY: Mary Lou Cabello ENTERED: 12/05/19 09:46 SP TYPE: SAMMIE BLOOD DR: Dr. John Colindres MD Tissues: Gallbladder, NOS Procedures: Surgery Specimen Level III HEADER OPERATION: Laparoscopic cholecystectomy with IOC PRE-OP DIAGNOSIS: Cholecystitis, cholelithiasis TISSUE SUBMITTED: Gallbladder MICROSCOPIC DIAGNOSIS Gallbladder, cholecystectomy: Chronic cholecystitis and focal cholesterolosis. A benign pericystic lymph node with reactive changes. No stones are identified in the container or in the gallbladder. SOLOMON:chan 12/06/19 MICROSCOPIC DESCRIPTION Slides are reviewed. GROSS DESCRIPTION Received is one container labeled with the patient's name and designated gallbladder. The specimen consists of a gallbladder measuring 8 cm in length and up to 4 cm in diameter. The external surface is pink-yeboah, smooth and glistening for the most part. Focally it is granular, hemorrhagic and contains cautery artifact. The gallbladder contains mucoid bile. No stones are identified in the container or in the gallbladder. The mucosa is bile-stained and without any mass lesions. The gallbladder wall measures up to 0.1 cm in thickness. The mucosa also shows several yellowish streaks consistent with cholesterolosis. Perfect Binder Operator sections from the gallbladder and the cystic duct are submitted in one cassette. / SOLOMON:chan 12/05/19 TC:3 CPT: 18368
--- NOTE | 2019-12-01 13:09 | PCA ---
pt off floor
[2019-12-01] MEDS: Cefazolin 2 GM in 0.9% Normal Saline 100 ML IV (13:30)
[2019-12-01] MEDS: Lactated Ringers 1,000 ML 100 ML IV (13:45)
--- NOTE | 2019-12-01 15:01 | PCA ---
pt off floor
[2019-12-01] MEDS: Bupivacaine Mpf 0.5% 30 ML VIAL (15:10)
--- NOTE | 2019-12-01 15:16 | OP.PCM_ITS ---
Problem List (1) Cholecystitis, acute with cholelithiasis Status: Acute Qualifiers: Biliary obstruction: without biliary obstruction Qualified Code(s): K80.00 - Calculus of gallbladder with acute cholecystitis without obstruction Report of Operation Date of Procedure: 12/01/19 Pre-Operative Diagnosis: Acute cholecystitis cholelithiasis Post-Operative Diagnosis: Same Surgery/Procedure Performed:: Laparoscopic cholecystectomy with cholangiograms Description of Surgical Findings:: Timeout and informed consent was obtained. 29-year-old female was taken to the operating placed by the table underwent general endotracheal intubation anesthesia. The abdomen sterilely prepped and draped. Ancef 2 g given intravenously preoperatively. 0.5% Marcaine was used as local anesthetic. Throughout the procedure total 30 cc was used. Skin sites were pre- anesthetized. A vertical infraumbilical incision was created holding suture of 0 Vicryl placed varies needle inserted saline drop test performed the abdomen was insufflated with CO2 to a pressure of 10 mmHg pressure. 10-minute trocar inserted. 10 laparoscope inserted. 5 mm trochars were placed in the epigastric and abdomen right upper quadrant. The abdomen was superficially inspected. Edema the gallbladder was noted. No evidence of any gross abnormalities. Blunt dissection was used to identify the infundibular area of the gallbladder and hemo-lock clips were used for hemostasis were indicated. With careful blunt dissection the cystic duct and cystic artery were identified. There was some adherent inflammation in this area. Hem-o-vera clips were placed in the cystic duct stump incision in the cystic duct stump and through a 14-gauge Angiocath a cholangiogram catheter was inserted. A fluoroscopically controlled cholangiogram was obtained demonstrating normal duct anatomy and free flow in the small bowel. 1 static image was retained. Unfortunately the remainder of the images were lost in processing. 2 hemo-lock clips were placed on the cystic duct stump prior to transecting it. Hemo-lock clip was placed proximally and distally on the cystic artery prior to transecting it. The gallbladder was then tediously dissected from the liver bed there was significant inflammatory change. In about the mid liver bed where there was an area of adherence upon dissecting with the hook cautery there appeared to possibly be a duct of Luschka. Very difficult to interpret since the tissue was very friable in this area. Upon inspecting I thought I saw the p ossibility of a drop of bile. So with this area attempted to use here with a 4- 0 Vicryl suture ligature. The tissue was so fragile though was not clear to me that I got good purchase. I then placed a couple metal clips. I continue to inspect this area. Did not clearly see the end of the duct. Did not see additional bile leakage. At this point I elected to simply place a drain as I did not feel I could do further intervention locally. Hemostasis was intact. There was only one episode where I thought I saw bile but that I could not replicate it. I like to then leave a 15 round MARTIN drain. The gallbladder was completely released from the liver placed in a retrieval bag. A 15 round MARTIN drain was short in length and exited through the right upper quadrant port site was placed at the subhepatic space. It was secured to skin with 3-0 nylon. The gallbladder was removed at the umbilicus after the antiviral vent was used to deflate the abdomen. Gallbladder was removed there were small stones within. The fascia at the umbilicus proximal interrupted 0 Vicryl [id number] suture. Skin edges approximate interrupted 4 Monocryl subdermal stitches. Steri-Strips Telfa and OpSite dressings applied. Sponge and instrument and needle counts were reported to the surgeon to be correct. Specimens gallbladder. Drains MARTIN drain. Blood loss minimal. The patient was taken to the recovery area in satisfactory edition without apparent complication Marky España M.D., F.A.C.S. Type of Anesthesia:: General Anesthesiologist: Keaton Hawthorne
[2019-12-01] MEDS: 0.9% Normal Saline 1,000 ML 100 ML IV (16:13)
[2019-12-01] MEDS: BENZOCAINE/MENTHOL 1 LOZENGE 2 LOZENGE MUCOUS MEM (17:36)
[2019-12-01] MEDS: oxyCODONE 5 MG Tablet PO ×2 (20:49→22:42)
[2019-12-01] MEDS: proMETHazine 25 MG/ML Syringe 12.5 MG IV (22:35)
[2019-12-02] MEDS: 0.9% Saline Lock 10 ML Syringe IV (01:18)
[2019-12-02 01:19] VITALS: BP 99/59; PULSE 55; RESP 16; TEMP 36.5; O2SAT 97
[2019-12-02 05:24] VITALS: BP 100/59; PULSE 65; RESP 16; TEMP 36.7; O2SAT 98
[2019-12-02] MEDS: oxyCODONE 5 MG Tablet PO ×2 (05:36→10:48)
--- NOTE | 2019-12-02 07:33 | PCM.PN.SRG ---
Patient Problems: Active and Suspected Problems (Last Reviewed 11/14/19 @ 14:28 by Emily Tellez) Cholecystitis, acute with cholelithiasis (Acute) Acute cholecystitis (Acute) Subjective: Patient tolerated clears ready for regular diet, MARTIN is serosanguineous - Physical Exam Vitals/I&O's: Vital Signs Temp Pulse Resp BP Pulse Ox 98.1 F 65 16 100/59 L 98 12/02/19 05:24 12/02/19 05:24 12/02/19 05:24 12/02/19 05:24 12/02/19 05:24 Oxygen Delivery Method Room Air Weight: 176 lb 5.917 oz Body Mass Index (BMI) 32.4 Intake and Output for Last 24 Hours 11/30/19 12/01/19 12/02/19 23:59 23:59 23:59 Intake Total 3591.67 / 4681.67 2338.33 / 2338.33 Output Total 90 / 920 2160 / 2160 Balance 3501.67 / 3761.67 178.33 / 178.33 General: Alert, Oriented x3, Cooperative, No apparent distress HEENT: Atraumatic Lungs: Normal air movement Cardiovascular: Regular rate Abdomen: Soft, Non-Distended, Tender - Near incisions clean dry and intact with op sites, MARTIN serosanguineous removed at bedside 4 x 4 and tape placed at site Laboratory Results 12/01/19 05:23: COVID-19 (LISET) Not Detected Current Medications Acetaminophen (Tylenol) 650 mg PO Q6H PRN PRN PRN Reason: Pain Score 1-10/10 Sodium Chloride () 250 mls @ 15 mls/hr IV .[id number] PRN PRN Reason: Saline Flush Sodium Chloride () 250 mls @ 15 mls/hr IV .[id number] PRN PRN Reason: Additional IVPB Infusion Morphine Sulfate () 2 - 4 mg IV Q1H PRN PRN PRN Reason: Pain Score 1-10/10 Ondansetron HCl (Zofran) 4 mg IV Q6H PRN PRN PRN Reason: NAUSEA Oxycodone HCl (Oxyir) 5 - 10 mg PO Q4H PRN PRN PRN Reason: Pain Score 1-10/10 Last Admin: 07/03/20 05:36 Dose: 5 mg Documented by: Promethazine HCl (Phenergan) 12.5 mg IV Q6H PRN PRN PRN Reason: NAUSEA/VOMITING Last Admin: 12/01/19 22:35 Dose: 12.5 mg Documented by: Sodium Chloride () 10 - 40 ml IV UD PRN PRN Reason: SALINE FLUSH Last Admin: 12/02/19 01:18 Dose: 10 ml Documented by: Throat Lozenges (Cepacol Sore Throat Lozenge) 2 lozenge MUCOUS MEM Q2H PRN PRN PRN Reason: SORE THROAT Last Admin: 12/01/19 17:36 Dose: 2 lozenge Documented by: Medical Necessity - Tobacco Use Smoking Status: Never smoker Assessment/Plan All Active Problems (Last Reviewed 11/14/19 @ 14:28 by Emily Tellez) PROM (premature rupture of membranes) (Acute) Cholecystitis, acute with cholelithiasis (Acute) Acute cholecystitis (Acute) Segmental and somatic dysfunction of sacral region (Acute) Segmental and somatic dysfunction of thoracic region (Acute) Segmental and somatic dysfunction of lumbar region (Acute) Rh negative state in antepartum period (Acute) History of anxiety (Acute) (Acute) Supervision of normal (Acute) Low lying placenta nos or without hemorrhage, second trimester (Resolved) Polyhydramnios (Resolved) RUQ abdominal pain (Resolved) 29-year-old female status post laparoscopic cholecystectomy Advance to regular diet patient tolerates okay to DC home. MARTIN removed at bedside patient tolerated well. Radha Lockhart M.D. Pager: [phone] [facility] [address] [place] [address], [address] [place] [address] Office: [phone]
[2019-12-02 09:19] VITALS: BP 98/52; PULSE 76; RESP 16; TEMP 36.7; O2SAT 98
== END 2019-12-02 11:49 | disposition home or self-care (01) ==
LOC: ED 02:50 → SDC 05:30 → AC 05:30 → MS3 06:28 → SDC 07:01 → MS3 07:02
PROVIDERS: Admitting Provider Surgery; Emergency Provider Emergency Medicine; PCP Family Medicine; Visit Provider Surgery
PROC: (CPT 47610; principal; 2019-12-01 12:40)
DX: K80.12 Calculus of gallbladder with acute and chronic cholecystitis without obstruction (principal); M99.02 Segmental and somatic dysfunction of thoracic region; M99.03 Segmental and somatic dysfunction of lumbar region; M99.04 Segmental and somatic dysfunction of sacral region
CPT/HCPCS: 00790; 47563; 74176; 74300; 76000; 80053; 83690; 84703; 85025; 87635; 88304; 93005; 96361; 96365; 96375; 96376; 99218; 99284; G2023; J7030; J7120; A4216; G0378; J2405; U0003

== ENCOUNTER → 2022-06-04 | Outpatient (CLI) | payer SELFPAY ==
[2022-06-09 12:40] LABS: HPV APTIMA, High Risk Negative (Negative)
== END | disposition home or self-care (01) ==
LOC: LABSPEC 12:50
PROVIDERS: PCP Family Medicine; Referring Provider Registered Nurse; Visit Provider Registered Nurse
DX: Z12.4 Encounter for screening for malignant neoplasm of cervix (principal)
CPT/HCPCS: 87624; 88175; G0145

== ENCOUNTER → 2023-04-28 | Outpatient (CLI) | payer SELFPAY ==
[2023-04-28 12:40] LABS: Amphetamine Urine VISTA NEGATIVE (<1000 ng/mL); Barbiturate Urine VISTA NEGATIVE (< 200 ng/mL); Benzodiazepine Urine VISTA NEGATIVE (< 200 ng/mL); Cocaine Urine VISTA NEGATIVE (< 300 ng/mL); Ecstacy Urine VISTA NEGATIVE (< 500 ng/mL); Methadone Urine VISTA NEGATIVE (< 300 ng/mL); PCP Urine VISTA NEGATIVE (< 25 ng/mL); THC Urine VISTA POSITIVE (< 50 ng/mL); Vista UDS pH Range 5
[2023-04-30 10:08] LABS: Chlamydia By Nucleic Acid AMP Negative (Negative); Gonococcus By Nucleic Acid AMP Negative (Negative)
== END | disposition home or self-care (01) ==
PROVIDERS: PCP Family Medicine; Referring Provider Advanced Practice Midwife; Visit Provider Advanced Practice Midwife
DX: Z34.90 Encounter for supervision of normal pregnancy, unspecified, unspecified trimester (principal); Z3A.00 Weeks of gestation of pregnancy not specified; Z79.899 Other long term (current) drug therapy
CPT/HCPCS: 80307; 87086; 87491; 87591

== ENCOUNTER 2023-05-03 16:37 | Emergency (ER) | payer SELFPAY ==
[2023-05-03 16:37] VITALS: BP 133/68; PULSE 104; RESP 16; TEMP 36.1; O2SAT 100; BMI 30.9
--- NOTE | 2023-05-03 17:05 | US_ITS ---
STUDY: FIRST TRIMESTER OBSTETRICAL ULTRASOUND REASON FOR EXAM: Female, 33 years old. bleeding TECHNIQUE: Transvaginal US was obtained to better visualized the ovaries. TECHNICAL QUALITY: Adequate. PRIOR ULTRASOUND: None. FINDINGS: There is visualization of a single gestational sac in a normal intrauterine position. The mean sac diameter (MSD) measures 16 mm, indicating an estimated gestational age (EGA) of 6 weeks, 3 days. The gestational sac shape is within normal limits. There is a visualized yolk sac. The yolk sac measures 3.4 mm. The placenta is non-visualized. Due to early gestation, the placenta is not seen. There is visualization of a live embryo. The crown-rump length (CRL) measures 8.3 mm, indicating an estimated gestational age (EGA) of 6 weeks, 6 days. There is demonstrated cardiac activity with a heart rate of 121 bpm. The estimated gestation age (EGA) by LMP is 6 weeks, 4 days. The estimated date of delivery (CUAUHTEMOC) by LMP is 7.24.23. The estimated gestation age (EGA) by US is 6 weeks, 5 days. The estimated date of delivery (CUAUHTEMOC) by US is 7.23.24. The uterus measures 2.5 cm. There is no demonstrated uterine fibroid. The cervix is closed. The right ovary measures 3 cm. There is no right ovarian cyst. There is no visualized right adnexal mass or complex lesion. The left ovary measures 4 cm. 17 mm left ovarian cyst. There is no visualized left adnexal mass or complex lesion. There is no fluid in the cul de sac. US/Transvaginal w/Preg US IMPRESSION: There is a single live intrauterine with a heart rate of 121 bpm. Electronically Signed: Júnior Keller MD at 19:10 EST ,
--- NOTE | 2023-05-03 17:07 | EDS_ITS ---
<Statement entered by Amarilis Oneil MD - 05/04/23 01:09> I have personally performed a face to face assessment of the patient and have reviewed the SHANIA Note. Patient presents secondary to vaginal bleeding in . Patient is approximately 6 weeks . She noted bleeding earlier today that was a rather large gush and now only mild bleeding. She spoke with [facility] who asked her to come in for imaging. Her blood type is AB-. Patient sitting upright in bed no acute distress. Head and neck examination unremarkable. Heart is regular rate and rhythm. Lung sounds are clear. Abdomen is soft nontender. Pelvic examination reveals single live intrauterine approximately 6 weeks with heart rate of 121. I spoke with Keya Casiano, nurse maco chaparro. She does wish for a dose of RhoGAM to be given. This will be provided prior to patient discharge. Patient will follow-up with OB. HPI HPI - Female History of Present Illness Chief Complaint: Vag Bld, Preg Narrative Narrative: Patient is a 33-year-old female that is a 2 para 1 who is currently 6 weeks . Patient has no significant medical problems. Patient presents to the emergency department with vaginal bleeding, lower abdominal pain that started today. Patient does see Dr. Garcia as an [facility]. She did have a ultrasound that showed a small sac in . Today, she was going to the bath when she felt a gush of blood from her vaginal area. She had some lower abdominal cramping. She called her [facility] who told her to go to the emergency department for further testing. Patient denies any nausea or vomiting. She d enies any fever or chills, she states to have slight abdominal cramping, back pain. She states the bleeding is now light however she is concerned. Patient is AB- and has received RhoGAM in the past. [facility] PFS Medical History Acute cholecystitis History of anxiety Rh negative state in antepartum period Supervision of normal Home Medications cephalexin 500 mg capsule 500 mg PO Q12 #14 CAPSULES 05/03/23 [Rx Last Taken Unknown] Allergy/AdvReac Type Severity Reaction Status Date / Time No Known Allergies Allergy Verified 04/28/23 09:45 Family History Mother Diabetes Hypertension Hyperlipidemia Father Diabetes Hyperlipidemia Hypertension Sister Cancer thyroid cancer Endometriosis Surgical History History of laparoscopic cholecystectomy (~11/2019) Social History adopted: No household members: spouse and children number of children: 2 current occupational status: unemployed current occupation: [employer] pets and animals: Yes pets and animals: dog(s) and other details: RABBIT history of recent travel: Yes ([place] ) out of state: Yes out of country: No sexually active: Yes Smoking Status: Never smoker alcohol intake: former details: social- NOT WHILE substance use type: marijuana well-balanced diet: about half the time caffeine: No eating out: 1-3 times/week during the past year weight has: remained stable what type of physical activity do you participate in: none 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 seatbelt use: always do you feel safe at home: Yes additional social history: Keaton- [employer]agram[employer] ROS ROS ED ROS Narrative Constitutional: Negative for fever, chills, weight loss, weakness Eyes: Negative for vision loss, vision change, double vision ENT: Negative for any sore throat, ear pain, congestion Cardiovascular: Negative for any chest pain, tightness, palpitations Respiratory: Negative for any cough, sputum production, hemoptysis, dyspnea, dyspnea on exertion, orthopnea Gastrointestinal: Negative for any nausea, vomiting, diarrhea, constipation, blood in stool, blood in vomit : Negative for any urinary frequency, dysuria, retention, blood in urine. Positive vaginal bleeding, abdominal cramp Muscle skeletal: Negative for any myalgias, arthralgias, neck pain, back pain Neurological: Negative for any headache, syncope, numbness or tingling, dizziness Skin: Negative for any rashes, lumps, itching, abrasions, lacerations Psychiatric: Negative for any depression, anxiety, stress, suicidal ideation, homicidal ideation Hematologic: Negative for any easy bruising, excessive bruising, easy bleeding Allergies: Negative for any eczema, hives, rash EXAM Physical Exam Narrative Exam Narrative: Vital signs reviewed. HEET: Head normocephalic atraumatic, TMs clear bilaterally. Posterior pharynx is clear, moist mucous membranes. Nares clear bilaterally. Neck: Supple with no lymphadenopathy or tenderness. No signs of meningismus. Cardiac: Regular rate and rhythm no murmurs gallops or rubs, equal peripheral pulses bilaterally. Respiratory: Lungs clear to auscultation bilaterally. No chest tenderness. Abdomen: Soft, nontender, nondistended. No abdominal bruit or pulsatile masses. No hepatosplenomegaly Extremities: No peripheral edema, no signs of gross trauma or deformity. Active full range of motion of all extremities. Neuro: Cranial nerves II through XII intact, no focal neurological deficits. Skin: Clean dry and intact with no rash, purpura, petechiae, vesicles or pustules. Backs/flank: No CVA tenderness, no midline spinal tenderness, no deformity. Psych: Normal mood and affect. No SI, HI or acute psychosis. Const Vital Signs: 05/03/23 16:37 Temperature 96.9 F L Temperature Source Temporal Pulse Rate 104 H Respiratory Rate 16 Blood Pressure 133/68 H Blood Pressure Mean 89 Pulse Ox 100 Oxygen Delivery Method Room Air MDM MDM Lab Data Labs: Laboratory Results - last 24 hr 05/03/23 16:20 WBC 11.4 H RBC 4.86 Hgb 14.8 Hct 44.4 MCV 91.4 MCH 30.5 MCHC 33.3 RDW Std Deviation 39.9 RDW Coeff of Tanja 11.9 Plt Count 339 MPV 10.1 Immature Gran % (Auto) 0.300 Neut % (Auto) 65.8 Lymph % (Auto) 25.1 Tillman % (Auto) 6.1 Eos % (Auto) 1.9 Baso % (Auto) 0.8 Absolute Neuts (auto) 7.5 Absolute Lymphs (auto) 2.86 Nucleated RBC % 0 Sodium 138 Potassium 3.5 Chloride 107 Carbon Dioxide 25.0 Anion Gap 6 BUN 8 Creatinine 0.77 Estim Creat Clear Calc 82.96 Est GFR (MDRD) Af Amer 112 Est GFR (MDRD) Non-Af 93 BUN/Creatinine Ratio 10.4 Glucose 95 Calcium 9.5 HCG, Quant 01399 H Urine Color Yellow Urine Clarity Sl. Cloudy Urine pH 6.0 Ur Specific [place] 1.010 Urine Protein 15 H Urine Glucose (UA) Normal Urine Ketones Negative Urine Occult Blood 25 H Urine Nitrite Negative Urine Bilirubin Negative Urine Urobilinogen Normal Ur Leukocyte Esterase 25 H Urine RBC 0-5 SEEN Urine WBC 0-5 SEEN Ur Squamous Epith Cells 0-5 SEEN Urine Bacteria 1+ Urine Mucus 0 SEEN Radiography Diagnostic Testing: Clinical Impression(s) from Imaging Studies Obstetrics Ultrasound 05/03/23 17:05 IMPRESSION: There is a single live intrauterine with a heart rate of 121 bpm. Electronically Signed: Júnior Keller MD at 19:10 EST Reading Location ID and State: [facility] / [place] , Service support , Treatment and Re-Evaluation Narrative: Patient appears generally well, patient appears nontoxic, vital signs are stable. Presenting to the emergency department with complaints of vaginal bleeding, approximately 6 to 7 weeks . Differential diagnosis includes miscarriage, demise, dysfunctional uterine bleeding, endometriosis. P atient received basic laboratory values including CBC, BMP, hCG quantitative will be ordered as well as a transvaginal ultrasound. Patient's laboratory values show a slight leukocytosis with a white blood count of 11.4, patient's hCG quant was 34,238. Patient's chemistries were unremarkable. Patient did receive transvaginal ultrasound, this does show a single live intrauterine with a heart rate of 121. We did reach out to [facility]. They recommended RhoGAM which we will give, patient will be placed on Keflex twice a day for 5 days this is secondary to the bacteria in her urine. After the RhoGAM injection, she will be able to be discharged. Discharge Plan Triage Chief Complaint: Vag Bld, Preg ED Midlevel Provider: Ashish Vinson ED Provider: Amarilis Oneil Dx/Rx/DC Orders Clinical Impression: Vaginal bleeding during , Bacteria in urine Instructions: Bleeding During Early Prescriptions: New cephalexin 500 mg capsule 500 mg PO Q12 Qty: 14 0RF Primary Care Provider: John Colindres Referrals: John Colindres MD [Primary Care Provider] - Carmen Garcia MD [Med Staff - Active Staff] - Activity Restrictions/Additional Instructions: Take the antibiotic for the bacteria in your urine. Follow-up outpatient. Disposition Disposition: Home, Self Care Discharge Date/Time: 05/03/23 20:25
[2023-05-03 17:30] LABS: Mucous, Urine 0 SEEN /hpf (<or=2+)
[2023-05-03 17:33] LABS: Color, Urine Yellow (Yellow); Glucose, Dipstick Normal (Normal); Ketone-Dipstick Negative (Negative); Leukocyte Esterase-Dipstick 25 /ul (Negative); Nitrite-Dipstick Negative (Negative); Occult Blood-Urine 25 /ul (Negative); Protein-Dipstick 15 mg/dl (Negative); Urine Bilirubin Dipstick Negative (Negative); Urine Clarity Sl. Cloudy (Clear); Urine Urobilinogen Normal (Normal)
[2023-05-03 17:34] LABS: Absolute Lymphocyte Count 2.86 X10^3/uL (0.83-4.51); Absolute Neutrophil Count 7.5 X10^3/uL (2.0-7.7); Basophil# 0.09 X10^3/uL; Basophil% 0.8 % (0-1); Eosinophil# 0.22 X10^3/uL; Eosinophils% 1.9 % (0-5); Hematocrit 44.4 % (37-47); Hemoglobin 14.8 g/dL (12.0-15.0); Lymphocyte # 2.86 X10^3/ul (0.83-4.51); Lymphocyte % 25.1 % (19-41); Mean Corp Hgb Conc 33.3 g/dL (32-36); Mean Corpuscular Hgb 30.5 pg (27.0-32.0); Mean Corpuscular Volume 91.4 fL (81-99); Mean Platelet Vol. 10.1 fl (6.2-12.0); Monocyte# 0.69 X10^3/uL; Monocyte% 6.1 % (0-10); NRBC Flagged by Analyzer 0 % (0-5); Neutrophil % 65.8 % (47-70); Platelet Count 339 K/mm3 (150-450); RBC Distribution Width CV 11.9 % (11.6-14.6); RBC Distribution Width SD 39.9 fl (35.1-43.9); Red Blood Count 4.86 M/mm3 (4.2-5.4); White Blood Count 11.4 K/mm3 (4.4-11.0)
[2023-05-03 17:39] LABS: Bacteria 1+ /hpf (None Seen); Red Blood Cells-Urine 0-5 SEEN /hpf (0-5); Squamous Epithelial Cells - UA 0-5 SEEN /hpf (5-10); White Blood Cells 0-5 SEEN /hpf (0-5)
[2023-05-03 17:46] LABS: Anion Gap 6 (5-15); BUN 8 mg/dL (7-18); BUN/Creat Ratio 10.4 RATIO (10-20); Calcium,Total 9.5 mg/dL (8.5-10.1); Chloride 107 mmol/L (98-107); Creatinine, Serum 0.77 mg/dL (0.55-1.02); EST Glomerular Filtration Rate 93 mL/min (>60); Est Glom Filt Rate - Afr Amer 112 mL/min (>60); Estimated Creatinine Clearance 82.96 ml/min; Glucose 95 mg/dL (74-106); Potassium 3.5 mmol/L (3.5-5.1); Sodium Level 138 mmol/L (136-145)
[2023-05-03 18:04] LABS: hCG Titer Quant., Serum 34238 mIU/mL (1-3)
[2023-05-03 19:00] VITALS: BP 121/75; PULSE 72; RESP 18; O2SAT 97
[2023-05-03] MEDS: Cephalexin 250 MG Capsule 500 MG PO (19:42)
[2023-05-03 20:25] VITALS: BP 135/68; PULSE 72; RESP 18; O2SAT 100
== END 2023-05-03 20:25 | disposition home or self-care (01) ==
PROVIDERS: Nurse Practitioner; Emergency Provider Emergency Medicine; PCP Family Medicine; Visit Provider Emergency Medicine
DX: O20.9 Hemorrhage in early pregnancy, unspecified (principal); O26.891 Other specified pregnancy related conditions, first trimester; R10.30 Lower abdominal pain, unspecified; O99.891 Other specified diseases and conditions complicating pregnancy; R82.71 Bacteriuria; Z3A.01 Less than 8 weeks gestation of pregnancy
CPT/HCPCS: 76817; 80048; 81001; 84702; 85025; 87086; 87088; 96372; 99282; J2790

== ENCOUNTER 2023-06-16 07:52 | Emergency (ER) | payer OTHER, SELFPAY ==
[2023-06-16 07:52] VITALS: BP 108/71; PULSE 121; RESP 18; TEMP 35.3; O2SAT 98; BMI 29.7
--- NOTE | 2023-06-16 08:50 | EX.ED.VIS.HA ---
HPI History of Present Illness Chief Complaint: Headache Informant: patient Onset/Context/Timing Onset: Days Context: Gradual Quality -Headache: Positive for Similar Prior Headaches Current Severity: Moderate Maximum Severity: Moderate Associated Symptoms/Injury Associated Symptoms: Positive for Nausea and Vomiting Narrative Narrative: 33-year-old female currently 12 weeks due date 12/23/2023 that is Ab0. States that she has had a headache and URI symptoms since . Associated nausea and vomiting, sore throat, earache and cough. Son with similar symptoms at home except the headache. She denies any dysuria. No abdominal pain. Prior similar symptoms: Yes Recent Illness/Hospitalization: No PFSH PFSH Medical History Acute cholecystitis History of anxiety Rh negative state in antepartum period Supervision of normal Home Medications NK 06/08/23 [History Last Taken Unknown] ondansetron 4 mg disintegrating tablet 4 mg PO Q8H PRN PRN Nausea #10 tabs 06/16/23 [Rx Last Taken Unknown] Allergy/AdvReac Type Severity Reaction Status Date / Time No Known Allergies Allergy Verified 06/08/23 11:53 Family History Mother Diabetes Hypertension Hyperlipidemia Father Diabetes Hyperlipidemia Hypertension Sister Cancer thyroid cancer Endometriosis Surgical History History of laparoscopic cholecystectomy (~11/2019) Social History adopted: No household members: spouse and children number of children: 2 current occupational status: unemployed current occupation: [employer] pets and animals: Yes pets and animals: dog(s) and other details: RABBIT history of recent travel: Yes ([place] ) out of state: Yes out of country: No sexually active: Yes Smoking Status: Never smoker alcohol intake: former details: social- NOT WHILE substance use type: marijuana well-balanced diet: about half the time caffeine: No eating out: 1-3 times/week during the past year weight has: remained stable what type of physical activity do you participate in: none cami/tenriism: Shinto seatbelt use: always do you feel safe at home: Yes additional social history: [employer] ROS ROS ED ROS Narrative Headache. Cough. Sore throat. Earache. Nausea and vomiting. Review of Systems ROS Unobtainable: Denies due to encephalopathy Constitutional Constitutional ED: Reports chills and fever(s) Eyes Eyes: Denies blurry vision ENT ENT ED: Reports ear pain and sore throat Cardiovascular Cardiovascular: Reports chest pain Respiratory/Chest Respiratory/Chest: Reports cough Gastrointestinal Gastrointestinal: Reports nausea and vomiting; Denies abdominal pain, constipation, diarrhea or melena Genitourinary Genitourinary ED: Denies dysuria or hematuria Musculoskeletal Musculoskeletal: Denies arthralgias Integumentary Denies abscess Neurologic Neurologic: Reports headache(s) Psychiatric Psychiatric: Denies anxiety Endocrine Endocrinology: Denies polydipsia Hematologic/Lymphatic Hematologic/Lymphatic: Denies easy bleeding or easy bruising Allergic/Immunologic Allergic/Immunologic ED: Denies mouth swelling, tongue swelling or urticaria EXAM Physical Exam Narrative Exam Narrative: 33-year-old female sent in a darkened room. Vital signs are stable. Currently afebrile. Does not look septic toxic. No distress. Sitting upright in bed. Pulse ox 98% on room air no signs of hypoxia. HEENT exam pupils round react to light. Extra motions are intact. Posterior pharynx unremarkable. Moist mucous membranes. TMs slightly erythematous bilaterally. Equal symmetrical. Neck nontender. No meningismus. No lymphadenopathy. Able to touch chin to chest. Lungs clear to auscultation bilaterally. Dry cough. Heart tachycardic rate about 115 no murmur. Chest wall and ribs nontender. Abdomen soft nontender. Moving all 4 extremities. 5 out of 5 non destructive evaluation manager strength. Dorsi plantarflexion intact. Back nontender. Skin no rash. Neurologically she is awake and alert no focal motor deficits. NIH is 0. Const Vital Signs: 06/16/23 07:52 Temperature 95.5 F L Temperature Source Temporal Pulse Rate 121 H Respiratory Rate 18 Blood Pressure 108/71 Blood Pressure Mean 83 Pulse Ox 98 Oxygen Delivery Method Room Air Positive well nourished and well developed; Negative for obese, cachectic, contractures or unkempt General Appearance ED: well developed and NAD; Negative for unkempt, cachectic, contractures, cyanotic or diaphoretic Nutritional Appearance: Negative for cachectic or obese HEENT Reports normocephalic and moist mucous membranes atraumatic; Negative for trauma, tenderness, temporal artery tenderness or vesicular rash Face and Sinus: Negative for sinus tenderness Eyes PERRL and EOMs intact bilaterally General Eye ED: Negative for pale conjunctiva or scleral icterus Neck no lymphadenopathy, supple, no meningeal signs and no JVD General: Negative for tenderness Resp normal respiratory effort and clear to auscultation bilaterally Effort and Inspection: Negative for retractions Auscultation: Negative for rales, rhonchi or wheezes Cardio regular rhythm, S1 normal heart sound, S2 normal heart sound and no murmurs; Negative for regular rate Rate: tachycardic Rhythm: Negative for abnormal rhythm GI non-tender and non-distended Auscultation: normoactive bowel sounds Palpation: soft and firm; Negative for tender, guarding or mass Back/Spine no CVA tenderness General Back: Negative for CVA tenderness or tenderness Cervical Spine: Negative for cervical spine tenderness Thoracic Spine / Upper Back: Negative for thoracic spinal tenderness Lumbar Spine / Lower Back: Negative for lumbar spinal tenderness Extremity normal to inspection, full ROM and normal capillary refill General Extremety ED: Negative for edema or tenderness General Extremity: Negative for edema Neuro oriented x3, CN's II-XII intact bilaterally and no sensory deficits noted Sensorium / Orientation: awake, alert, oriented to person, oriented to place and oriented to time; Negative for orientation impaired, lethargic or stuporous Coordination / Balance: [id number] test normal and [id number] test normal Motor Exam: strength 5/5 throughout Comatose: Negative for other Psych mental status grossly normal Appearance: Negative for unkempt Attitude: No agitated Mood & Affect: Negative for depressed, anxious or tearful Skin Lesions: no lesions Rashes: no rashes MDM MDM MDM Narrative Medical decision making narrative: 33-year-old female with a headache with a history of migraines also may have COVID and/or flu. That will be checked I do not think she needs any brain imaging. Treated with IV fluids, Benadryl and Zofran. Repeat exam at 10:05 AM headache not significantly improved. She will be given additional Benadryl and a IV injection of Reglan. Her exam is unchanged. Patient doing better at 12:12 PM. She will be discharged home. Fluids and rest. Tylenol. Outpatient follow-up. History & Record Review Discussion w/independent historian: Patient Lab Data Attestation: I reviewed the patient's lab results. Lab results narrative: Flu be positive. COVID-negative. Discharge Plan Triage Chief Complaint: Headache ED Provider: Paul Edward Dx/Rx/DC Orders Clinical Impression: First trimester , Headache, migraine, Influenza Instructions: ED Influenza (Adult), ED, Migraine (Classical) Prescriptions: New ondansetron 4 mg tablet,disintegrating 4 mg PO Q8H PRN PRN (Reason: Nausea) Qty: 10 0RF No Action NK Primary Care Provider: John Colindres Referrals: John Colindres MD [Primary Care Provider] - 3-5 Days if not improving Activity Restrictions/Additional Instructions: Plenty of fluids and rest. Zofran as needed for nausea. Tylenol for pain. Follow-up if not improving or return if worse. Disposition Disposition: Home, Self Care Capacity Legal Preparer Making Department Reflex Medical hold order details:: IF a medical hold is selected below, a suggested order for a MEDICAL HOLD will reflex upon signing the document. Next of kin: [place] law dictates a PRIORITY LIST for identifying legal decision-maker/legal next of kin in the following order (LNOK): 1st: The patient?s legal guardian, if any 2nd: The patient's spouse (if status is questionable, consult Risk Management) 3rd: The patient?s adult child(zaki) (majority, if multiple children) 4th: The patient?s parents 5th: The patient?s adult siblings (majority, if multiple children siblings)
[2023-06-16] MEDS: 0.9% Normal Saline (1000mL) 1,000 ML 1000 ML IV (09:10)
[2023-06-16] MEDS: Ondansetron 4 MG/2 ML Vial IV (09:10)
[2023-06-16] MEDS: DiphenhydrAMINE 50 MG/ML Syringe 25 MG IV ×2 (09:10→10:29)
[2023-06-16] MEDS: Metoclopramide 10 MG/2 ML Vial 5 MG IV (10:30)
[2023-06-16 12:22] VITALS: BP 106/53; PULSE 94; RESP 16; O2SAT 100
== END 2023-06-16 12:25 | disposition home or self-care (01) ==
PROVIDERS: Emergency Provider Emergency Medicine; PCP Family Medicine; Visit Provider Emergency Medicine
DX: O99.511 Diseases of the respiratory system complicating pregnancy, first trimester (principal); J10.1 Influenza due to other identified influenza virus with other respiratory manifestations; O21.9 Vomiting of pregnancy, unspecified; O99.351 Diseases of the nervous system complicating pregnancy, first trimester; G43.909 Migraine, unspecified, not intractable, without status migrainosus; O99.321 Drug use complicating pregnancy, first trimester; F12.90 Cannabis use, unspecified, uncomplicated; Z3A.12 12 weeks gestation of pregnancy
CPT/HCPCS: 87631; 96361; 96374; 96375; 96376; 99283; J7030; A4216; J2405

== ENCOUNTER → 2023-06-26 | Outpatient (CLI) | payer OTHER, SELFPAY ==
--- OUTSIDE RECORDS SUMMARY | 2023-06-26 16:47 | XMS RPT_ITS | CCD ---
Author Name Unknown Address [address] [place] [address] Organization [facility] Care Team Providers Care University Relations Vice President Name Role Phone JAD LEONG Primary Care Unavailable Results Test Name Value Interpretation Reference Range Facil ity Encounters Encounter Date Encounter Type Care Provider Facility Start: 03-09-2023 Emergency department patient visit JAD LEONG Facility:[facility] Payers Date Payer Category Payer Unknown [id number] Progress note 03-14-2023 Note Date & Type Note Facility 03-14-2023 Note HNO ID: [id number] Author: Note, Interface Service: ? Author Type: ? Type: Progress Notes Filed: 03/14/2023 5:28 AM Note Text: Epic Scheduled Downtime: 03/14/2023 1:00:00 AM to 03/14/2023 1:28:00 AM [facility] Summary Purpose Family History No Family History Records Found Advance Directives No Advanced Directives Records Found Additional Source Comments INFORMATION SOURCE (unrecogn ized section and content) FOR RECORDS PERTAINING TO PATIENTS WHO ARE OR HAVE BEEN ENROLLED IN A CHEMICAL DEPENDENCY/SUBSTANCEABUSE PROGRAM, SOME INFORMATION MAY BE OMITTED. This clinical summary was aggregated from multiple sources. Caution should be exercised in using it in the provision of clinical care. This summary normalizes information from multiple sources, and as a consequence, information in this document may materially change the coding, format and clinical context of patient data. In addition, data may be omitted in some cases. CLINICAL DECISIONS SHOULD BE BASED ON THE PRIMARY CLINICAL RECORDS. [employer] [facility]. provides no warranty or guarantee of the accuracy or completeness of information in this document.
== END | disposition home or self-care (01) ==
PROVIDERS: Referring Provider Obstetrics & Gynecology; Visit Provider Obstetrics & Gynecology
DX: Z34.90 Encounter for supervision of normal pregnancy, unspecified, unspecified trimester (principal); Z3A.00 Weeks of gestation of pregnancy not specified
CPT/HCPCS: 87086; 87088

== ENCOUNTER → 2023-07-07 | Outpatient (CLI) | payer OTHER, SELFPAY ==
[2023-07-07 13:57] LABS: Absolute Lymphocyte Count 2.39 X10^3/uL (0.83-4.51); Absolute Neutrophil Count 8.9 X10^3/uL (2.0-7.7); Basophil# 0.06 X10^3/uL; Basophil% 0.5 % (0-1); Eosinophil# 0.18 X10^3/uL; Eosinophils% 1.5 % (0-5); Hematocrit 40.9 % (37-47); Hemoglobin 13.3 g/dL (12.0-15.0); Lymphocyte # 2.39 X10^3/ul (0.83-4.51); Lymphocyte % 19.8 % (19-41); Mean Corp Hgb Conc 32.5 g/dL (32-36); Mean Corpuscular Hgb 29.3 pg (27.0-32.0); Mean Corpuscular Volume 90.1 fL (81-99); Mean Platelet Vol. 9.7 fl (6.2-12.0); Monocyte# 0.48 X10^3/uL; NRBC Flagged by Analyzer 0 % (0-5); Neutrophil # 8.85 X10^3/uL (2.7-7.7); Neutrophil % 73.3 % (47-70); Platelet Count 379 K/mm3 (150-450); RBC Distribution Width CV 12.6 % (11.6-14.6); RBC Distribution Width SD 41.3 fl (35.1-43.9); Red Blood Count 4.54 M/mm3 (4.2-5.4); White Blood Count 12.1 K/mm3 (4.4-11.0)
[2023-07-07 15:04] LABS: HIV - WCH Non-Reactive (Nonreactive); Hepatitis B Surface Antigen Non-Reactive (Nonreactive); Hepatitis C Antibody Non-Reactive (Nonreactive); Rubella IgG Reactive (Nonreactive); Syphilis Antibodies Non-reactive
--- OUTSIDE RECORDS SUMMARY | 2023-07-07 16:40 | XMS RPT_ITS | CCD ---
Author Name Unknown Address [address] [place] [address] Organization [facility] Care Team Providers Care Embosser Apprentice Name Role Phone JAD LEONG Primary Care Unavailable Results Test Name Value Interpretation Reference Range Facil ity Encounters Encounter Date Encounter Type Care Provider Facility Start: 03-09-2023 Emergency department patient visit JAD LEONG Facility:[facility] Payers Date Payer Category Payer Unknown [id number] Progress note 03-14-2023 Note Date & Type Note Facility 03-14-2023 Note HNO ID: [id number] Author: Note, Interface Service: ? Author Type: ? Type: Progress Notes Filed: 03/14/2023 5:28 AM Note Text: Epic Scheduled Downtime: 03/14/2023 1:00:00 AM to 03/14/2023 1:28:00 AM [facility] Summary Purpose Family History No Family History Records FoundNo Family History Records Found Advance Directives No Advanced Directives Records FoundNo Advanced Directives Records Found Additional Source Comments INFORMATION SOURCE (unrecogn ized section and content) DATE CREATED AUTHOR AUTHOR'S ORGANIZ ATION 06/30/2023 [facility] FOR RECORDS PERTAINING TO PATIENTS WHO ARE [...] BE BASED ON THE PRIMARY CLINICAL RECORDS. [employer] provides no warranty or guarantee of the accuracy or completeness of information in this document.
== END | disposition home or self-care (01) ==
PROVIDERS: Referring Provider Advanced Practice Midwife; Visit Provider Advanced Practice Midwife
DX: Z34.90 Encounter for supervision of normal pregnancy, unspecified, unspecified trimester (principal); Z3A.00 Weeks of gestation of pregnancy not specified
CPT/HCPCS: 36415; 85025; 86703; 86762; 86780; 86803; 86850; 86900; 86901; 87340

== ENCOUNTER → 2023-09-02 | Outpatient (CLI) | payer OTHER, SELFPAY ==
[2023-09-02 13:59] LABS: Amphetamine Urine VISTA NEGATIVE (<1000 ng/mL); Barbiturate Urine VISTA NEGATIVE (< 200 ng/mL); Benzodiazepine Urine VISTA NEGATIVE (< 200 ng/mL); Cocaine Urine VISTA NEGATIVE (< 300 ng/mL); Ecstacy Urine VISTA NEGATIVE (< 500 ng/mL); Methadone Urine VISTA NEGATIVE (< 300 ng/mL); PCP Urine VISTA NEGATIVE (< 25 ng/mL); THC Urine VISTA NEGATIVE (< 50 ng/mL); Vista UDS pH Range 6
== END | disposition home or self-care (01) ==
LOC: LABSPEC 12:36
PROVIDERS: Referring Provider Obstetrics & Gynecology; Visit Provider Obstetrics & Gynecology
DX: O99.320 Drug use complicating pregnancy, unspecified trimester (principal); F12.90 Cannabis use, unspecified, uncomplicated; Z3A.00 Weeks of gestation of pregnancy not specified
CPT/HCPCS: 80307

== ENCOUNTER → 2023-09-18 | Outpatient (CLI) | payer OTHER, SELFPAY ==
--- NOTE | 2023-09-18 10:28 | US_ITS ---
STUDY: ABDOMINAL ULTRASOUND - RIGHT UPPER QUADRANT REASON FOR VISIT: Female, 33 years old RUQ pain TECHNIQUE: Ultrasound evaluation of the right upper quadrant was performed with real-time and static lind-scale imaging. TECHNICAL QUALITY: Adequate. COMPARISON: Comparison is made with prior study dated June 03, 2019. FINDINGS: Liver: The liver measures 17.3 cm. There is normal echogenicity of the liver. The bile ducts are within normal limits. There is hepatic color flow. The direction of portal flow is hepatopetal. There is no demonstrated mass lesion. Gallbladder: The patient is status post cholecystectomy. Common Bile Duct (C.B.D.): The common bile duct measures 5.0 mm. Pancreas: Normal size of the head, body and tail of the pancreas. There is normal echogenicity of the pancreas. There is no demonstrated pancreatic mass or cyst. Right Kidney: Normal size of the right kidney. The right kidney measures 12.1 cm x 4.9 cm x 4.5 cm. Normal renal cortex. The right cortex measures 1.3 cm. There is no demonstrated renal mass or cyst. There is no right hydronephrosis. US/Abdomen Limited IMPRESSION: Status post cholecystectomy. No acute abnormality is seen. Electronically Signed: Rudolph Cadena MD at 14:40 EDT ,
[2023-09-18 12:02] LABS: Absolute Lymphocyte Count 2.21 X10^3/uL (0.83-4.51); Basophil# 0.08 X10^3/uL; Basophil% 0.6 % (0-1); Eosinophil# 0.13 X10^3/uL; Eosinophils% 1.1 % (0-5); Hematocrit 39.4 % (37-47); Hemoglobin 12.7 g/dL (12.0-15.0); Lymphocyte # 2.21 X10^3/ul (0.83-4.51); Lymphocyte % 17.9 % (19-41); Mean Corp Hgb Conc 32.2 g/dL (32-36); Mean Corpuscular Hgb 28.4 pg (27.0-32.0); Mean Corpuscular Volume 88.1 fL (81-99); Monocyte# 0.61 X10^3/uL; Monocyte% 4.9 % (0-10); NRBC Flagged by Analyzer 0 % (0-5); Neutrophil # 8.98 X10^3/uL (2.7-7.7); Neutrophil % 72.9 % (47-70); Platelet Count 298 K/mm3 (150-450); RBC Distribution Width CV 13.6 % (11.6-14.6); RBC Distribution Width SD 43.8 fl (35.1-43.9); Red Blood Count 4.47 M/mm3 (4.2-5.4); White Blood Count 12.3 K/mm3 (4.4-11.0)
[2023-09-18 12:52] LABS: Amylase 77 U/L (25-115); Lipase 90 U/L (13-75)
== END | disposition home or self-care (01) ==
PROVIDERS: PCP Family Medicine; Referring Provider Obstetrics & Gynecology; Visit Provider Obstetrics & Gynecology
DX: R10.11 Right upper quadrant pain (principal); Z33.1 Pregnant state, incidental
CPT/HCPCS: 36415; 76705; 82150; 83690; 85025; 86850; 86900; 86901

== ENCOUNTER → 2023-09-21 | Outpatient (CLI) | payer OTHER, SELFPAY ==
[2023-09-21 15:24] LABS: Absolute Lymphocyte Count 1.93 X10^3/uL (0.83-4.51); Absolute Neutrophil Count 9.5 X10^3/uL (2.0-7.7); Basophil# 0.07 X10^3/uL; Basophil% 0.6 % (0-1); Eosinophil# 0.16 X10^3/uL; Eosinophils% 1.3 % (0-5); Hematocrit 38.1 % (37-47); Hemoglobin 12.4 g/dL (12.0-15.0); Lymphocyte # 1.93 X10^3/ul (0.83-4.51); Lymphocyte % 15.3 % (19-41); Mean Corp Hgb Conc 32.5 g/dL (32-36); Mean Corpuscular Hgb 28.4 pg (27.0-32.0); Mean Corpuscular Volume 87.2 fL (81-99); Mean Platelet Vol. 9.7 fl (6.2-12.0); Monocyte# 0.84 X10^3/uL; Monocyte% 6.6 % (0-10); NRBC Flagged by Analyzer 0 % (0-5); Neutrophil # 9.52 X10^3/uL (2.7-7.7); Neutrophil % 75.2 % (47-70); Platelet Count 315 K/mm3 (150-450); RBC Distribution Width CV 13.6 % (11.6-14.6); RBC Distribution Width SD 43.3 fl (35.1-43.9); Red Blood Count 4.37 M/mm3 (4.2-5.4); White Blood Count 12.7 K/mm3 (4.4-11.0)
[2023-09-21 15:42] LABS: Lipase 97 U/L (13-75)
== END | disposition home or self-care (01) ==
LOC: LAB 14:57
PROVIDERS: PCP Family Medicine; Visit Provider Obstetrics & Gynecology
DX: O99.891 Other specified diseases and conditions complicating pregnancy (principal); R10.11 Right upper quadrant pain; O09.90 Supervision of high risk pregnancy, unspecified, unspecified trimester; Z3A.00 Weeks of gestation of pregnancy not specified
CPT/HCPCS: 36415; 83690; 85025

== ENCOUNTER → 2023-10-02 | Outpatient (CLI) | payer OTHER, SELFPAY ==
[2023-10-02 11:38] LABS: Glucose Challenge Gest 1H 50g 119 mg/dL (70-140)
== END | disposition home or self-care (01) ==
PROVIDERS: PCP Family Medicine; Referring Provider Obstetrics & Gynecology; Visit Provider Obstetrics & Gynecology
DX: Z13.1 Encounter for screening for diabetes mellitus (principal)
CPT/HCPCS: 36415; 82950; 86850; 86900; 86901

== ENCOUNTER → 2023-10-12 | Outpatient (CLI) | payer OTHER, SELFPAY ==
[2023-10-12 11:59] LABS: Lipase 110 U/L (13-75)
== END | disposition home or self-care (01) ==
LOC: LAB 10:36
PROVIDERS: PCP Family Medicine; Referring Provider Obstetrics & Gynecology; Visit Provider Obstetrics & Gynecology
DX: R74.8 Abnormal levels of other serum enzymes (principal)
CPT/HCPCS: 36415; 83690

== ENCOUNTER → 2023-10-22 | Outpatient (CLI) | payer OTHER, SELFPAY ==
--- NOTE | 2023-10-22 15:01 | US_ITS ---
STUDY: OBSTETRICAL ULTRASOUND - BIOPHYSICAL PROFILE REASON FOR EXAM: Female, 33 years old Weekly BPP LMP: 03/18/2023 PRIOR ULTRASOUND: None. TECHNIQUE: Transabdominal TECHNICAL QUALITY: Adequate. FINDINGS: There is a single intrauterine fetus. The fetus is in a breech presentation. There is demonstrated cardiac activity with a heart rate of 148 bpm. There is a normal amniotic fluid volume. The largest amniotic fluid pocket measures 5.8 cm. The amniotic fluid index (SARA) is 17.5 cm. The placenta is anterior in location and is not low lying. There are Grade 1 placental changes. Age by LMP: 31 weeks, 1 days. CUAUHTEMOC by LMP: 12/23/2023. Gender: Male BIOPHYSICAL PROFILE: Breathing Movements (FBM): 2 Gross Body Movements (GBM): 2 Tone (FT): 2 Amniotic Fluid Volume (AFV): 2 TOTAL SCORE: 8 / 8 US/Biophysical Prof W/O Non Stres IMPRESSION: Normal biophysical profile of 01/06. Electronically Signed: Waldo Hinojosa MD at 22:39 EDT ,
[2023-10-22 16:01] LABS: Erythrocyte Sedimentation Rate 25 mm/hr (0-30)
[2023-10-22 16:04] LABS: ALB/GLOB Ratio 0.7 RATIO (0.9-2.4); AST(SGOT) 14 U/L (15-37); Alanine Aminotransfer ALT/SGPT 27 U/L (13-56); Albumin, Serum 2.8 g/dL (3.2-5.0); Alkaline Phosphatase 78 U/L (45-117); Anion Gap 7 (5-15); BUN 7 mg/dL (7-18); BUN/Creat Ratio 12.9 RATIO (10-20); CRP 6.25 mg/L (0.0-3.0); Calcium,Total 8.7 mg/dL (8.5-10.1); Chloride 110 mmol/L (98-107); Creatinine, Serum 0.54 mg/dL (0.55-1.02); EST Glomerular Filtration Rate 138 mL/min (>60); Est Glom Filt Rate - Afr Amer 167 mL/min (>60); GGTP 11 U/L (5-55); Glucose 88 mg/dL (74-106); LDH 120 U/L (84-246); Potassium 3.9 mmol/L (3.5-5.1); Protein, Total 6.8 g/dL (6.4-8.2); Sodium Level 137 mmol/L (136-145)
[2023-10-28 15:08] LABS: Anti-Centromere B Ab <0.2 AI (0.0-0.9); Anti-Chromatin <0.2 AI (0.0-0.9); Anti-Jo <0.2 AI (0.0-0.9); Anti-Mitochondrial AB <20.0 Units (0.0-20.0); Anti-Scleroderma-70 AB <0.2 AI (0.0-0.9); Anti-dsDNA Ab 1 IU/mL (0-9); Beef <0.10 kU/L (Class 0); Carbohydrate AG 19-9 3 U/mL (0-35); Chocolate <0.10 kU/L (Class 0); Codfish <0.10 kU/L (Class 0); Corn <0.10 kU/L (Class 0); Cytoplasmic Ab (C-ANCA) <1:20 titer (Neg:<1:20); Egg, Whole <0.10 kU/L (Class 0); Endomysial Antibody IgA Negative (Negative); IgG, Quant 666 mg/dL (586-1602); Immunoglobulin A 191 mg/dL (87-352); Immunoglobulin E 7 IU/mL (6-495); Immunoglobulin G, Subclass 1 385 mg/dL (248-810); Immunoglobulin G, Subclass 2 172 mg/dL (130-555); Immunoglobulin G, Subclass 3 18 mg/dL (15-102); Immunoglobulin G, Subclass 4 1 mg/dL (2-96); Immunoglobulin M 47 mg/dL (26-217); Milk (Cow) <0.10 kU/L (Class 0); Mussels <0.10 kU/L (Class 0); Peanut <0.10 kU/L (Class 0); Perinuclear Ab (P-ANCA) <1:20 titer (Neg:<1:20); Pork <0.10 kU/L (Class 0); RNP Ab 0.2 AI (0.0-0.9); SJOGREN'S Anti-SS-A test < 0.2 AI (0.0-0.9); SJOGREN'S Anti-SS-B test < 0.2 AI (0.0-0.9); Salmon <0.10 kU/L (Class 0); Shrimp <0.10 kU/L (Class 0); Smith Ab <0.2 AI (0.0-0.9); Soybean <0.10 kU/L (Class 0); Tuna <0.10 kU/L (Class 0); Wheat <0.10 kU/L (Class 0); t-Transglutaminase IgA <2 U/mL (0-3)
== END | disposition home or self-care (01) ==
PROVIDERS: Internal Medicine Gastroenterology; PCP Family Medicine; Referring Provider Obstetrics & Gynecology; Visit Provider Obstetrics & Gynecology
DX: O99.891 Other specified diseases and conditions complicating pregnancy (principal); R74.8 Abnormal levels of other serum enzymes; R10.11 Right upper quadrant pain; Z3A.00 Weeks of gestation of pregnancy not specified
CPT/HCPCS: 36415; 76819; 80053; 82784; 82785; 82787; 82977; 83516; 83615; 85652; 86003; 86005; 86140; 86225; 86235; 86255; 86256; 86301

== ENCOUNTER → 2023-10-29 | Outpatient (CLI) | payer OTHER, SELFPAY ==
--- NOTE | 2023-10-29 18:05 | US_ITS ---
STUDY: OBSTETRICAL ULTRASOUND - BIOPHYSICAL PROFILE REASON FOR EXAM: Female, 33 years old weekly BPP LMP: March 18, 2023. PRIOR ULTRASOUND: Comparison is made with prior study dated October 22, 2023. TECHNIQUE: Transabdominal TECHNICAL QUALITY: Adequate. FINDINGS: There is a single intrauterine fetus. The fetus is in a cephalic presentation. There is demonstrated cardiac activity with a heart rate of 141 bpm. There is a normal amniotic fluid volume. The largest amniotic fluid pocket measures 9.4 cm. The amniotic fluid index (SARA) is 24.5 cm. The placenta is anterior in location and is not low lying. There are Grade 1 placental changes. Age by LMP: 32 weeks, 1 days. CUAUHTEMOC by LMP: December 23, 2023. BIOPHYSICAL PROFILE: Breathing Movements (FBM): 2 Gross Body Movements (GBM): 2 Tone (FT): 2 Amniotic Fluid Volume (AFV): 2 TOTAL SCORE: 8 / 8 US/Biophysical Prof W/O Non Stres IMPRESSION: Normal biophysical profile of 01/06. Electronically Signed: Rudolph Cadena MD at 9:31 EDT ,
== END | disposition home or self-care (01) ==
LOC: US 18:01
PROVIDERS: PCP Family Medicine; Referring Provider Obstetrics & Gynecology; Visit Provider Obstetrics & Gynecology
DX: O09.90 Supervision of high risk pregnancy, unspecified, unspecified trimester (principal); Z3A.00 Weeks of gestation of pregnancy not specified
CPT/HCPCS: 76819

== ENCOUNTER 2023-11-05 17:58 | Outpatient (CLI) | payer OTHER, SELFPAY ==
--- NOTE | 2023-11-05 18:00 | US_ITS ---
EXAM: US BIOPHYSICAL PROFILE WITHOUT NON-STRESS TESTING CLINICAL INDICATION: WELL BEING TECHNIQUE: Real-time ultrasound of the maternal pelvis for biophysical profile evaluation with image documentation. COMPARISON: No relevant prior studies available. FINDINGS: BREATHING MOVEMENTS: Present. Score 2/2. GROSS BODY MOVEMENTS: Present. Score 2/2. TONE: Present. Score 2/2. QUALITATIVE AMNIOTIC FLUID VOLUME: SARA is 16.3 cm. FETUS: There is an intrauterine gestation. HEART RATE: heart rate is 147 beats per minutes. PRESENTATION: The fetus is in the cephalic position. PLACENTA: The placenta is anterior. OTHER FINDINGS: The biophysical profile score is 8/8. US/Biophysical Prof W/O Non Stres IMPRESSION: Biophysical profile score 8/8. heart rate is 147 bpm. Electronically Signed: Charles Mota MD at 18:56 EDT ,
== END 2023-11-05 23:59 | disposition home or self-care (01) ==
LOC: US 17:59
PROVIDERS: PCP Family Medicine; Referring Provider Obstetrics & Gynecology; Visit Provider Obstetrics & Gynecology
DX: Z36.9 Encounter for antenatal screening, unspecified (principal)
CPT/HCPCS: 76819

== ENCOUNTER 2023-11-12 18:50 | Outpatient (CLI) | payer OTHER, SELFPAY ==
--- NOTE | 2023-11-12 18:05 | US_ITS ---
STUDY: OBSTETRICAL ULTRASOUND - BIOPHYSICAL PROFILE REASON FOR EXAM: Female, 33 years old weekly BPP LMP: PRIOR ULTRASOUND: 11/05/2023. TECHNIQUE: Transabdominal TECHNICAL QUALITY: Adequate. FINDINGS: There is a single intrauterine fetus. The fetus is in a cephalic presentation. There is demonstrated cardiac activity with a heart rate of 150 bpm. There is a normal amniotic fluid volume. The largest amniotic fluid pocket measures 7.6 cm. The amniotic fluid index (SARA) is 16.3 cm. The placenta is anterior in location and is not low lying. There are Grade 1 placental changes. Age by LMP: 34 weeks, 1 days. CUAUHTEMOC by LMP: 12/23/2023. Gender: Male BIOPHYSICAL PROFILE: Breathing Movements (FBM): 0 Gross Body Movements (GBM): 2 Tone (FT): 2 Amniotic Fluid Volume (AFV): 2 TOTAL SCORE: 6 / 8 US/Biophysical Prof W/O Non Stres IMPRESSION: Abnormal biophysical profile of 6/8. Score of 0 for no breathing movements. Electronically Signed: Waldo Hinojosa MD at 19:28 EDT ,
[2023-11-12 19:53] VITALS: PULSE 93; O2SAT 98
[2023-11-12 19:58] VITALS: BP 108/63; PULSE 94
[2023-11-12 20:01] VITALS: BMI 34.7
[2023-11-12 20:22] VITALS: PULSE 84; O2SAT 99
[2023-11-12 20:27] VITALS: PULSE 87; O2SAT 98
--- NOTE | 2023-11-13 05:31 | OB.TRI.PN_ITS ---
Progress Notes Date of Service: 11/12/23 Progress Note: Patient presents for triage evaluation secondary to 6/8 bpp FHT: 140 Moderate variability reactive no decelerations category I tracing [place]: no regular Contractions Assessment and plan: abnormal testing but now 8/10 bpp Reactive NST, reassuring maternal and status patient discharged to home to follow-up as scheduled. See problem list details for additional plan information. Charges/Coding Procedures Urinary/Genital [id number]: [id number] non-stress test Interp
== END 2023-11-12 20:36 | disposition home or self-care (01) ==
LOC: US 19:05 → WPOUT 19:06 → WP 19:41
PROVIDERS: PCP Family Medicine; Referring Provider Obstetrics & Gynecology; Visit Provider Obstetrics & Gynecology
DX: O28.9 Unspecified abnormal findings on antenatal screening of mother (principal); Z3A.00 Weeks of gestation of pregnancy not specified
CPT/HCPCS: 59025; 76819

== ENCOUNTER → 2023-11-19 | Outpatient (CLI) | payer OTHER, SELFPAY ==
[2023-11-19 17:00] LABS: Lipase 106 U/L (13-75)
== END | disposition home or self-care (01) ==
LOC: LAB 15:59
PROVIDERS: PCP Family Medicine; Referring Provider Obstetrics & Gynecology; Visit Provider Obstetrics & Gynecology
DX: R74.8 Abnormal levels of other serum enzymes (principal)
CPT/HCPCS: 36415; 83690

== ENCOUNTER → 2023-11-19 | Outpatient (CLI) | payer OTHER, SELFPAY ==
--- NOTE | 2023-11-19 17:56 | US_ITS ---
ACR Level 3 findings have been noted. An addendum which confirms receipt of the report will follow. EXAM: US BIOPHYSICAL PROFILE WITHOUT NON-STRESS TESTING CLINICAL INDICATION: WELL BEING TECHNIQUE: Real-time ultrasound of the maternal pelvis for biophysical profile evaluation with image documentation. COMPARISON: 11/12/2023 FINDINGS: BREATHING MOVEMENTS: Present. Score 2/2. GROSS BODY MOVEMENTS: Present. Score 2/2. TONE: Present. Score 2/2. QUALITATIVE AMNIOTIC FLUID VOLUME: Amniotic fluid volume is 11.97 cm with maximal vertical pocket of 6 cm. HEART RATE: heart rate: 153 bpm. PRESENTATION: Cephalic presentation. PLACENTA: Anterior placenta. ANATOMY: The umbilical cord appears to be at least draped across the neck without clear evidence of a discrete loop. US/Biophysical Prof W/O Non Stres IMPRESSION: 1. The umbilical cord appears to be at least draped across the neck without clear evidence of a discrete loop. 2. Biophysical profile score is 8 out of 8. Electronically Signed: Mal Serna DO at 23:56 EDT ,
== END | disposition home or self-care (01) ==
LOC: US 17:55
PROVIDERS: PCP Family Medicine; Referring Provider Obstetrics & Gynecology; Visit Provider Obstetrics & Gynecology
DX: O26.899 Other specified pregnancy related conditions, unspecified trimester (principal); Z3A.00 Weeks of gestation of pregnancy not specified
CPT/HCPCS: 76819

== ENCOUNTER → 2023-11-30 | Outpatient (CLI) | payer OTHER, SELFPAY ==
--- NOTE | 2023-11-30 11:23 | US_ITS ---
INDICATION: weekly BPP / wellbeing EXAMINATION: Ultrasound US Biophysical Profile W/O Nonst TECHNIQUE: Transabdominal pelvic ultrasound was performed. COMPARISON: Prior study dated: 11/19/2023 LMP: Unknown. Beta-hCG: Unknown. Provided EGA: None. FINDINGS: INTRAUTERINE GESTATION(s): Single. HEART MOTION is 145 bpm. AMNIOTIC FLUID INDEX (SARA): 13.5 cm, the largest pocket measures 6.6 cm. BIOPHYSICAL PROFILE (BPP): 01/06 -- Breathin/2. -- Movement: 2/2. -- Tone: 2/2. --SARA: 2/2. PRESENTATION: Cephalic PLACENTA: Anterior. There is no placenta previa or abruption. CERVIX: The cervix is closed. MATERNAL OVARIES: Not visualized. FREE FLUID: None. US/Biophysical Prof W/O Non Stres IMPRESSION: Normal biophysical profile with score of 8/8. Electronically Signed: Jl Adam MD at 13:55 EDT ,
== END | disposition home or self-care (01) ==
PROVIDERS: PCP Family Medicine; Referring Provider Obstetrics & Gynecology; Visit Provider Obstetrics & Gynecology
DX: O09.93 Supervision of high risk pregnancy, unspecified, third trimester (principal); R74.8 Abnormal levels of other serum enzymes; Z3A.00 Weeks of gestation of pregnancy not specified
CPT/HCPCS: 76819

== ENCOUNTER → 2023-12-01 | Outpatient (CLI) | payer OTHER, SELFPAY | END | disposition home or self-care (01) | PROVIDERS: PCP Family Medicine; Visit Provider Advanced Practice Midwife | DX: O09.93 Supervision of high risk pregnancy, unspecified, third trimester (principal) | CPT/HCPCS: 87081 ==

== ENCOUNTER → 2023-12-04 | Outpatient (CLI) | payer OTHER, SELFPAY ==
[2023-12-04 17:48] LABS: Glucose Challenge Gest 1H 50g 127 mg/dL (70-140)
--- NOTE | 2023-12-04 18:16 | US_ITS ---
STUDY: OBSTETRICAL ULTRASOUND - BIOPHYSICAL PROFILE REASON FOR EXAM: Female, 33 years old wellbeing- weekly BPP LMP: PRIOR ULTRASOUND: None. TECHNIQUE: Transabdominal TECHNICAL QUALITY: Adequate. FINDINGS: There is a single intrauterine fetus. The fetus is in a cephalic presentation. There is demonstrated cardiac activity with a heart rate of 139 bpm. There is a normal amniotic fluid volume. The largest amniotic fluid pocket measures 5.46 cm. The amniotic fluid index (SARA) is 13.21 cm. The placenta is anterior and low-lying There are Grade 3 placental changes. Age by LMP: 37 weeks, 2 days. CUAUHTEMOC by LMP: December 23, 2023. BIOPHYSICAL PROFILE: Breathing Movements (FBM): 2 Gross Body Movements (GBM): 2 Tone (FT): 2 Amniotic Fluid Volume (AFV): 2 TOTAL SCORE: US/Biophysical Prof W/O Non Stres IMPRESSION: Normal biophysical profile of 01/06. Electronically Signed: Alton Gomez MD at 21:19 EDT Reading Location ID and State: [facility] / [place] Tel , Service support ,
== END | disposition home or self-care (01) ==
LOC: US 16:22
PROVIDERS: Advanced Practice Midwife; PCP Family Medicine; Referring Provider Obstetrics & Gynecology; Visit Provider Obstetrics & Gynecology
DX: O09.93 Supervision of high risk pregnancy, unspecified, third trimester (principal); R74.8 Abnormal levels of other serum enzymes; Z3A.00 Weeks of gestation of pregnancy not specified
CPT/HCPCS: 36415; 76819; 82950

== ENCOUNTER → 2023-12-10 | Outpatient (CLI) | payer OTHER, SELFPAY ==
--- NOTE | 2023-12-10 12:39 | US_ITS ---
STUDY: SECOND AND THIRD TRIMESTER OBSTETRICAL ULTRASOUND REASON FOR EXAM: Female, 33 years old WELL BEING AND GROWTH LMP: 03/18/2023 TECHNIQUE: Transabdominal TECHNICAL QUALITY: Adequate. PRIOR ULTRASOUND: 12/04/2023 FINDINGS: There is a single intrauterine fetus. The fetus is in a cephalic presentation. There is demonstrated cardiac activity with a heart rate of 148 bpm. There is a normal amniotic fluid volume. The largest amniotic fluid pocket measures 3.4 cm. The amniotic fluid index (SARA) is 7.9 cm. The amniotic fluid is echogenic. The placenta is anterior in location and is not low lying. There are Grade 2 placental changes. The cervix measures in length. The bilateral adnexal regions are normal. BIOMETRY: BPD: 8.9 cm: 36 weeks, 0 days HC: 33.2 cm: 37 weeks, 6 days AC: 36.5 cm: 40 weeks, 3 days FL: 7.2 cm: 37 weeks, 0 days CI: 76.37 FL/BPD: 81.22 FL/HC: 21.76 FL/AC: 19.77 HC/AC: 0.91 age by current US: 37 weeks, 4 days. CUAUHTEMOC by current US: 12/27/2023. Estimated weight: 3644 grams, +/- 547 grams, 81 %. age by prior US: weeks, days. CUAUHTEMOC by prior US: . Age by LMP: 38 weeks, 1 days. CUAUHTEMOC by LMP: 12/23/2023. IMPRESSION: 1. Living intrauterine of 37 weeks 4 days as described above. 2. Echogenic amniotic fluid. Electronically Signed: Misha Espana MD at 19:08 EDT , STUDY: OBSTETRICAL ULTRASOUND - BIOPHYSICAL PROFILE REASON FOR EXAM: Female, 33 years old WELL BEING AND GROWTH LMP: 03/18/2023 PRIOR ULTRASOUND: 12/04/2023 TECHNIQUE: Transabdominal TECHNICAL QUALITY: Adequate. FINDINGS: There is a single intrauterine fetus. The fetus is in a cephalic presentation. There is demonstrated cardiac activity with a heart rate of 148 bpm. There is a normal amniotic fluid volume. The largest amniotic fluid pocket measures 3.4 cm. The amniotic fluid index (SARA) is 7.9 cm. The placenta is anterior in location and is not low lying. There are Grade 2 placental changes. Age by LMP: 38 weeks, 1 days. CUAUHTEMOC by LMP: 12/23/2023. age by prior US: weeks, days. CUAUHTEMOC by prior US: . age by current US: 37 weeks, 4 days. CUAUHTEMOC by current US: 12/27/2023. Gender: BIOPHYSICAL PROFILE: Breathing Movements (FBM): 2 Gross Body Movements (GBM): 2 Tone (FT): 2 Amniotic Fluid Volume (AFV): 2 TOTAL SCORE: / US/OB Limited With Biometrics IMPRESSION: Normal biophysical profile of 01/06. Electronically Signed: Misha Espana MD at 19:10 EDT ,
== END | disposition home or self-care (01) ==
LOC: US 12:37
PROVIDERS: PCP Family Medicine; Referring Provider Obstetrics & Gynecology; Visit Provider Obstetrics & Gynecology
DX: O26.899 Other specified pregnancy related conditions, unspecified trimester (principal); R74.8 Abnormal levels of other serum enzymes; Z3A.00 Weeks of gestation of pregnancy not specified
CPT/HCPCS: 76816; 76819

== ENCOUNTER 2023-12-17 04:01 | Inpatient (IN) | payer OTHER, SELFPAY ==
[2023-12-16 23:39] VITALS: RESP 16; TEMP 36.7
[2023-12-16 23:40] VITALS: BP 124/66; PULSE 96
[2023-12-16 23:56] VITALS: BMI 36.6
[2023-12-17] VITALS (44 sets, daily range): BP systolic 110–125; BP diastolic 55–70; PULSE 90–113; RESP 16–24; TEMP 36.6–36.8; O2SAT 97–100
--- NOTE | 2023-12-17 00:35 | OB.TRI.PN_ITS ---
Progress Notes Date of Service: 12/17/23 Progress Note: Patient presents for triage evaluation secondary to uterine contractions FHT: 135 Moderate variability reactive no decelerations category I tracing [place]: 7-8 minutes mild Contractions Assessment and plan: No cervical change, Reactive NST, reassuring maternal and status patient discharged to home to follow-up in office/IOL on thursday. See problem list details for additional plan information. Charges/Coding Multi Select Codes Urinary/Genital Urinary/Genital CPT Codes: 32949-07 non-stress test Interp Assessment & Plan (1) Uterine contractions: (2) Abnormal serum lipase level: COMMENT: Weekly BPP (3) RUQ pain: COMMENT: general surgery/resolved (4) UTI in , antepartum: COMMENT: treated in ER. re culture in 3 weeks/negative (5) Rh negative status during : QUALIFIERS: Trimester: third trimester Qualified Code(s): O26.893 - Other specified related conditions, third trimester; Z67.91 - Unsp ecified blood type, Rh negative COMMENT: Rhogam injection @ 28 weeks & PRN for bleeding. had rhogam 05/04 for first trimester bleeding (6) H/O depression, currently : (7) Supervision of high-risk : QUALIFIERS: Trimester: third trimester Qualified Code(s): O09.93 - Supervision of high risk , unspecified, third trimester COMMENT: PRR, , CUAUHTEMOC 11/16/23 PC Addison, [place] (8) : QUALIFIERS: Weeks of gestation: 38 weeks Qualified Code(s): Z3A.38 - 38 weeks gestation of COMMENT: GBS Negative, nl GCT,nl anatomy, declines genetic & carrier testing (9) History of anxiety: COMMENT: no meds, encouraged counseling
[2023-12-17] MEDS: Lactated Ringers 1,000 ML 999 ML IV (03:10)
[2023-12-17 03:22] LABS: Absolute Neutrophil Count 12.8 X10^3/uL (2.0-7.7); Basophil# 0.06 X10^3/uL; Basophil% 0.4 % (0-1); Eosinophil# 0.08 X10^3/uL; Eosinophils% 0.5 % (0-5); Hematocrit 35.8 % (37-47); Hemoglobin 11.5 g/dL (12.0-15.0); Lymphocyte % 13.6 % (19-41); Mean Corp Hgb Conc 32.1 g/dL (32-36); Mean Platelet Vol. 9.8 fl (6.2-12.0); Monocyte# 0.87 X10^3/uL; Monocyte% 5.4 % (0-10); NRBC Flagged by Analyzer 0 % (0-5); Neutrophil % 78.9 % (47-70); Platelet Count 304 K/mm3 (150-450); RBC Distribution Width CV 14.9 % (11.6-14.6); RBC Distribution Width SD 43.3 fl (35.1-43.9); Red Blood Count 4.42 M/mm3 (4.2-5.4); White Blood Count 16.2 K/mm3 (4.4-11.0)
[2023-12-17] MEDS: Oxytocin 15 Units/NS 250ml 15 UNITS/250 ML IV.SOLN 334 UNITS IV (03:38)
[2023-12-17] MEDS: Lidocaine 1% (20 ml mdv) 20 ML Vial INFILT (03:44)
[2023-12-17 03:58] LABS: Syphilis Antibodies Non-reactive
--- NOTE | 2023-12-17 03:58 | HP.PCM.OB_ITS ---
HPI - General General Date of Admission: 12/17/23 Date of Service: 12/17/23 HPI Narrative RAGHAV BILLY, is a 33 F 39.1 weeks gestation who presents to unit in active labor. admission orders given Maternal Data Information CUAUHTEMOC Calculator Estimated Delivery Date Method Current WG Current Estimate 12/23/23 Ultrasound #1 39w 1d Other Estimates 11/16/23 LMP (Certain) 44w 3d Final CUAUHTEMOC: 12/23/23 Final CUAUHTEMOC Source: US >20 weeks Gestational age: 39.1 PFSH PFSH Medical History Acute cholecystitis Rh negative state in antepartum period Supervision of normal History of anxiety Home Medications ?Medication ?Instructions ?Recorded ?Last Taken ?Type vit no.95-ferrous 1 tab PO DAILY 11/12/23 11/12/23 History fumarate 28 mg-folic acid 800 mcg tablet ( Formula) Allergy/AdvReac Type Severity Reaction Status Date / Time No Known Allergies Allergy Verified 12/16/23 23:57 Family History Mother Diabetes Hypertension Hyperlipidemia Father Diabetes Hyperlipidemia Hypertension Sister Cancer thyroid cancer Endometriosis Surgical History History of laparoscopic cholecystectomy (~11/2019) Social History adopted: No household members: spouse and children number of children: 2 current occupational status: unemployed current occupation: [employer] pets and animals: Yes pets and animals: dog(s) and other details: RABBIT history of recent travel: Yes ([place] ) out of state: Yes out of country: No sexually active: Yes Smoking Status: Never smoker alcohol intake: former details: social- NOT WHILE substance use type: marijuana well-balanced diet: about half the time caffeine: No eating out: 1-3 times/week during the past year weight has: remained stable what type of physical activity do you participate in: none cami/mandaen: Alevism seatbelt use: always do you feel safe at home: Yes additional social history: [place]- [employer] History 2 Elective abortions Hx Para 1 Spontaneous abortions Hx # Term Pregnancies Ectopic pregnancies Hx # Pregnancies Multiple births # of living children 1 Past Pregnancies Del. Date Name GA/Weeks Outcome Route Bth Weight Infant Gen Labor Lgth Anesthesia Del Gaetanoatlorraine Provider FOB 09/25/19 MILES 38 live - full term 7lbs 12oz Male ep idural [facility] Delivery Date: 09/25/19 Last Updated by: Dana Beckford [facility] Visit Details Expected Delivery Route/Plan Labor Preferences- CB/BF classes: no labor support person: Satnam labor intervention preferences: [] pain management options preferred: wants limited if possible. cut cord/dad catch: cord-Satnam. Her mom catch : yes PP control planned: discussed discussed possible routes of delivery and associated risks: [] special requests: [] Plans Covid status: [] Flu vaccine:declined Tdap vaccine: given Rhogam: given LARC form signed: yes Problem list reviewed and updated with the most current plan of care details and appropriate orders placed. Relevant counseling for the gestational age provided. Continue routine care and follow up unless otherwise noted in visit notes/problem list details OB Flowsheet Initial Weight: Not Recorded Date -?-?-?-?-?-?-?-?-?-?-?-?- EGA Weight BP Urine Prot -?-?-?-?-?-?-?-?-?-?-?-?- Glucose FHR FuHt Pres Dilation -?-?-?-?-?-?-?-?-?-?-?-?- Effaced St Visit Note 04/28/23 -?-?-?-?-?-?-?-?-?-?-?-?- 5w 6d 169 lb 6 oz 120/83 -?-?-?-?-?-?-?-?-?-?-?-?- -?-?-?-?-?-?-?-?-?-?-?-?- KW- SM assisted with Scan. unable to measure CRL. Rescan next visit. RTO in 2 weeks. 05/12/23 -?-?-?-?-?-?-?-?-?-?-?-?- 7w 6d 167 lb 2 oz 105/70 Nega tive -?-?-?-?-?-?-?-?-?-?-?-?- Negative 168 -?-?-?-?-?-?-?-?-?-?-?-?- KW- CRL 14. cons with 7.6 weeks. visit in ER last weekend for spotting and had RHogam and UTI. 06/08/23 -?-?-?-?-?-?-?-?-?-?-?-?- 11w 5d 167 lb 115/82 Negative -?-?-?-?-?-?-?-?-?-?-?-?- Negative 160 -?-?-?-?-?-?-?-?-?-?-?-?- JV- no lof, vagi nal bleeding or cramping. going down today for labs. 06/26/23 -?-?-?-?-?-?-?-?-?-?-?-?- 14w 2d 162 lb 118/81 Negative -?-?-?-?-?-?-?-?-?-?-?-?- Negative 150 -?-?-?-?-?-?-?-?-?-?-?-?- SM- s/p flu B, h ad some spotting, mild lower back cramping today 07/07/23 -?-?-?-?-?-?-?-?-?-?-?-?- 15w 6d 167 lb 6 oz 95/56 Nega tive -?-?-?-?-?-?-?-?-?-?-?-?- Negative 154 -?-?-?-?-?-?-?-?-?-?-?-?- JV- no lof, vagi nal bleeding, or cramping. had flu B but feeling better. anatomy scan ordered. 08/06/23 -?-?-?-?-?--?-?-?-?-?-?-?- 20w 1d 171 lb 102/69 -?-?-?-?-?-?-?-?-?-?-?-?- 150 -?-?-?-?-?-?-?-?-?-?-?-?- Sm- no vb crampi ng 09/02/23 -?-?-?-?-?-?-?-?-?-?-?-?- 24w 0d 176 lb 8 oz 102/66 Nega tive -?-?-?-?-?-?-?-?-?-?-?-?- Negative 146 -?-?-?-?-?-?-?-?-?-?-?-?- JV- no lof, vagi nal bleeding, or dec fm. gct ordered. JV- RUQ pain and h/o justin. hurts every time she eats. will send message to surgeon. no lof, vaginal bleeding, or dec fm. gct ordered. 10/02/23 -?-?-?-?-?-?-?-?-?-?-?-?- 28w 2d 181 lb 6 oz 94/66 Nega tive -?-?-?-?-?-?-?-?-?-?-?-?- Negative 140 30 -?-?-?-?-?-?-?-?-?-?-?-?- KW- no vb/lof/ct x. good fm. Glucose, LARC, tdap RHogam today. 10/12/23 -?-?-?-?-?-?-?-?-?-?-?-?- 29w 5d 184 lb 103/68 Negative -?-?-?-?-?-?-?-?-?-?-?-?- Negative 144 29 -?-?-?-?-?-?-?-?-?-?-?-?- JV- no lof, vagi nal bleeding, or cramping. monitoring lipase. RUQ pain better with low fat diet. 11/03/23 -?-?-?-?-?-?-?-?-?-?-?-?- 32w 6d 189 lb 6 oz 110/66 Nega tive -?-?-?-?-?-?-?-?-?-?-?-?- Negative 148 32 -?-?-?-?-?-?-?-?-?-?-?-?- MH-No VB, LOF. G ood FM. Doing weekly BPPs now. Denies concerns 11/19/23 -?-?-?-?-?-?-?-?-?-?-?-?- 35w 1d 194 lb 115/76 Negative -?-?-?-?-?-?-?-?-?-?-?-?- Negative 138 35 -?-?-?-?-?-?-?-?-?-?-?-?- JV- no lof, vagi nal bleeding, or dec fm. has bpp tonight. needs rpt lipase level 12/01/23 -?-?-?-?-?-?-?-?-?-?-?-?- 36w 6d 197 lb 113/75 Trace -?-?-?-?-?-?-?-?-?-?-?-?- 100 g/dL 135 38 Cephalic 0 -?-?-?-?-?-?-?-?-?-?-?-?- KW- no vb/lof/re gular ctx. good fm. 12/07/23 -?-?-?-?-?-?-?-?-?-?-?-?- 37w 5d 200 lb 110/78 Negative -?-?-?-?-?-?-?-?-?-?-?-?- Negative 145 38 Cephalic 1 -?-?-?-?-?-?-?-?-?-?-?-?- 40 -3 JV- no lof , vaginal bleeding or dec fm. labor precautions discussed. 12/14/23 -?-?-?-?-?-?-?-?-?-?-?-?- 38w 5d 200 lb 8 oz 107/71 Nega tive -?-?-?-?-?-?-?-?-?-?-?-?- Negative 150 Cephalic 1 -?-?-?-?-?-?-?-?-?-?-?-?- 50 -3 JV- ultras ound shows fluid is going down and tech reports possible meconium stained fluid. She denies lof, vaginal bleeding, or dec fm. IOL set up for thursday this week for persistent elevation in lipase levels. NST FHR Rate Baby A Baseline: 145 Variability:: Moderate Accelerations:: None Decelerations:: None NST Reactive:: Non-Reactive FHR Category:: Category II Uterine Activity:: 2-3 minutes ROS Constitutional Constitutional: Denies change in weight, fatigue, fever(s), headache(s), poor appetite or weakness Eyes Eyes: Denies blurry vision, change in vision, floaters, seeing flashes or spots in vision ENT HEENT: Denies dizziness, headache(s), loss taste/smell or sore throat Cardiovascular Cardiovascular: Denies chest pain, dizziness, dyspnea, irregular heart rhythm, lightheadedness, palpitations or rapid heart rate Respiratory/Chest Respiratory/Chest: Denies change in mental status, chest tightness, cough, dyspnea or breast pain Gastrointestinal Gastrointestinal: Denies anorexia, chewing difficulty, constipation, diarrhea or weight changes Genitourinary Genitourinary: Denies difficulty urinating, dysuria, flank pain, genital pain, urinary frequency or urinary urgency Musculoskeletal Musculoskeletal: Denies back pain, difficulty walking, extremity pain, joint pain, muscle cramps or muscle weakness Integumentary Integumentary: Denies lesions or unusual bruising Neurologic Neurologic: Denies abnormal movements, abnormal speech, dizziness, numbness, seizure-like activity, syncope or weakness Psychiatric Psychiatric: Denies behavioral changes, change in appetite, confusion, depression, homicidal ideation, suicidal ideation or suicidal thoughts Endocrine Endocrinology: Denies excessive sweating, polydipsia or polyuria Hematologic/Lymphatic Hematologic/Lymphatic: Denies anemia Allergic/Immunologic Allergic/Immunologic: Denies itchy eyes, lip swelling, throat swelling, tongue swelling or wheezing Vital Signs Vital Signs Vital Signs: 12/16/23 23:39 12/16/23 23:39 12/16/23 23:39 Temperature 98.1 F Temperature Source Oral Pulse Rate Respiratory Rate 16 Blood Pressure BP Systolic BP Diastolic 12/16/23 23:40 12/16/23 23:40 12/17/23 03:23 Temperature Temperature Source Pulse Rate 96 Respiratory Rate Blood Pressure 124/66 H 125/70 H BP Systolic 124 125 BP Diastolic 66 70 12/17/23 03:23 Temperature Temperature Source Pulse Rate 95 Respiratory Rate Blood Pressure BP Systolic BP Diastolic Weight Weight: 200 lb 9.93 oz Body Mass Index (BMI) 36.6 Physical Exam Const alert, oriented x3 and no apparent distress General Appearance: cooperative Orientation / Consciousness: awake HEENT normocephalic Neck full ROM Lymph Lymphatic: no lymphadenopathy noted Chest inspection of chest normal Resp normal respiratory effort and normal air movement Effort and Inspection: able to speak in complete sentences and symmetric chest movement GI soft to palpation and non-tender Inspection: gravid Palpation: soft; Negative for tender external exam normal Back/Spine normal to inspection Extremity normal to inspection and full ROM Skin no rashes or lesions noted Psych mental status grossly normal Appearance: grossly normal Speech: normal speech Labs Labs Labs: Blood Type AB NEGATIVE Antibody Screen NEGATIVE Hct 35.8 % (37-47) L Hgb 11.5 g/dL (12.0-15.0) L Obstetrics Ultrasound Syphilis Total Ab Non-reactive Rubella IgG Antibody Reactive (Nonreactive) Hep Bs Antigen Non-Reactive (Nonreactive) Hepatitis C Antibody Non-Reactive (Nonreactive) Chlamydia DNA (LISET) Negative (Negative) N.gonorrhoeae DNA (LISET) Negative (Negative) HIV 1&2 Antibody Non-Reactive (Nonreactive) Glucose 1 Hr 50 gm 127 mg/dL (70-140) Rhogam given: Yes Assessment & Plan (1) Active labor: PLAN: Patient presents IAL, plan expectant management for , pitocin/AROM PRN if needed. Pain management: plans epidural. GBS negative. Management of any complications: abnormal serum lipase I have reviewed the [facility] and made any clinically relevant updates. (2) Uterine contractions: (3) Abnormal serum lipase level: COMMENT: Weekly BPP (4) RUQ pain: COMMENT: general surgery/resolved (5) UTI in , antepartum: COMMENT: treated in ER. re culture in 3 weeks/negative (6) Rh negative status during : QUALIFIERS: Trimester: third trimester Qualified Code(s): O26.893 - Other specified related conditions, third trimester; Z67.91 - Unspecified blood type, Rh negative COMMENT: Rhogam injection @ 28 weeks & PRN for bleeding. had rhogam 12/4 for first trimester bleeding (7) H/O depression, currently : (8) Supervision of high-risk : QUALIFIERS: Trimester: third trimester Qualified Code(s): O09.93 - Supervision of high risk , unspecified, third trimester COMMENT: PRR, , CUAUHTEMOC 11/16/23 PC Addison, [place] (9) : QUALIFIERS: Weeks of gestation: 38 weeks Qualified Code(s): Z3A.38 - 38 weeks gestation of COMMENT: GBS Negative, nl GCT,nl anatomy, declines genetic & carrier testing (10) History of anxiety: COMMENT: no meds, encouraged counseling Charges/Coding Multi Select Codes Urinary/Genital Urinary/Genital CPT Codes: No Charge
--- NOTE | 2023-12-17 04:01 | OP.PCM_ITS ---
Assessment & Plan (1) Vaginal delivery: COMMENT: KW IAL 39.1 Boy (2) Active labor: (3) Uterine contractions: (4) Abnormal serum lipase level: COMMENT: Weekly BPP (5) RUQ pain: COMMENT: general surgery/resolved (6) UTI in , antepartum: COMMENT: treated in ER. re culture in 3 weeks/negative (7) Rh negative status during : QUALIFIERS: Trimester: third trimester Qualified Code(s): O26.893 - Other specified related conditions, third trimester; Z67.91 - Unspecified blood type, Rh negative COMMENT: Rhogam injection @ 28 weeks & PRN for bleeding. had rhogam 12/ for first trimester bleeding (8) H/O depression, currently : (9) Supervision of high-risk : QUALIFIERS: Trimester: third trimester Qualified Code(s): O09.93 - Supervision of high risk , unspecified, third trimester COMMENT: PRR, , CUAUHTEMOC 11/16/23 PC Addison, [place] (10) : QUALIFIERS: Weeks of gestation: 38 weeks Qualified Code(s): Z3A.38 - 38 weeks gestation of COMMENT: GBS Negative, nl GCT,nl anatomy, declines genetic & carrier test ing (11) History of anxiety: COMMENT: no meds, encouraged counseling Maternal Data Information CUAUHTEMOC Calculator Estimated Delivery Date Method Current WG Current Estimate 12/23/23 Ultrasound #1 39w 1d Other Estimates 11/16/23 LMP (Certain) 44w 3d Final CUAUHTEMOC: 12/23/23 Final CUAUHTEMOC Source: US >20 weeks Gestational age: 39.1 Vaginal Delivery Maternal Presentation Maternal Presentation: Active Labor Maternal Presentation: Progressed well to 10cm dilated and made steady progress with effective maternal pushing. Delivered the head in EDUARD presentation. The head was delivered atraumatically and a loose nuchal cord was identified and was easily reduced over the 's head. The anterior and posterior shoulders delivered without complication followed by the rest of the and the was placed on the maternal abdomen, to awaiting nursery nurse. Ped in room for mec delivery. Delayed cord clamping was employed for approximately 1-2 minutes. Cord was clamped and cut for infant to be assessed by awaiting team, and gentle traction was applied to the cord and the placenta delivered spontaneously. Immediately following, it was noted to be intact with a 3 vessel cord. The perineum and vagina were inspected and noted to have a first degree laceration which was repaired with 3-0 Vicryl in the usual fashion. EBL was 200cc. Patient and infant tolerated delivery well. Apgars 7/8. Dr Velasquez notified of vaginal delivery and orders reviewed. Physician agrees with current plan of care. Operative Information Date of Procedure: 12/17/23 Pre-Operative Diagnosis: See AP comments Post-Operative Diagnosis: Same Surgery / Procedure Performed: Spontaneous Vaginal Delivery church history professor #1: Tanya Mcduffie Type of Anesthesia: None Estimated Blood Loss: 200 Time of Delivery: 03:31 Findings Presentation: Vertex Amniotic Membrane Rupture Type: Spontaneous Amniotic Fluid Description: Thick meconium Placental Delivery Description: Spontaneous Placenta Disposition: [facility] Cord Vessel Description: 3 Vessels Cord Entanglement: Around neck x 1, loose Cord Gases: ABG and VBG A Gender: Male (1 minute): 7 (5 minute): 8 Delayed Cord Clamping: Yes Post Vaginal Delivery Medications Given After Delivery: IV Pitocin Episiotomy Description: None Laceration: 1st degree Complication Complications: None Multi Select Codes Urinary/Genital Urinary/Genital CPT Codes: 41735 Vaginal Delivery [facility]
[2023-12-17] MEDS: Oxytocin 15 Units/NS 250ml 15 UNITS/250 ML IV.SOLN 83 UNITS IV (04:08)
[2023-12-17] MEDS: Ibuprofen 600 MG Tablet PO ×3 (05:57→17:29)
[2023-12-17] MEDS: 0.9% Saline Lock 10 ML Syringe IV (08:36)
[2023-12-17 09:02] LABS: Amphetamine Urine VISTA NEGATIVE (<1000 ng/mL); Barbiturate Urine VISTA NEGATIVE (< 200 ng/mL); Benzodiazepine Urine VISTA NEGATIVE (< 200 ng/mL); Cocaine Urine VISTA NEGATIVE (< 300 ng/mL); Ecstacy Urine VISTA NEGATIVE (< 500 ng/mL); Methadone Urine VISTA NEGATIVE (< 300 ng/mL); PCP Urine VISTA NEGATIVE (< 25 ng/mL); THC Urine VISTA NEGATIVE (< 50 ng/mL); Vista UDS pH Range 5
[2023-12-17] MEDS: Rho(D) Immune Globulin 300 MCG (1500 Unit) Syringe IV (09:58)
[2023-12-17] MEDS: Acetaminophen 500 MG Tablet 1000 MG PO (16:23)
[2023-12-18 00:27] VITALS: BP 110/56; PULSE 89; O2SAT 97
[2023-12-18 00:35] VITALS: BP 110/56; PULSE 87; RESP 15; TEMP 36.4; O2SAT 98
[2023-12-18] MEDS: Ibuprofen 600 MG Tablet PO ×2 (00:44→08:45)
[2023-12-18 04:09] VITALS: BP 113/63; PULSE 93; PULSE 96; RESP 15; TEMP 36.3; O2SAT 97
[2023-12-18 04:10] VITALS: PULSE 95; O2SAT 97
[2023-12-18] MEDS: Acetaminophen 500 MG Tablet 1000 MG PO (08:45)
[2023-12-18 08:48] VITALS: BP 119/57; PULSE 99
[2023-12-18 08:49] VITALS: BP 119/57; PULSE 99; RESP 16; TEMP 36.4
--- NOTE | 2023-12-18 08:51 | PCM.PN.OB ---
Subjective Subjective Patient doing well without complaints. Tolerating PO. Ambulating and voiding without difficulty. Feeding well. Denies chest pain, shortness of breath, calf pain/swelling, fevers, chills, lightheadedness. Objective Data Objective Data Vital Signs: Vital Signs Temp Pulse Resp BP Pulse Ox O2 Del Method 97.6 F L 99 16 119/57 L 97 Room Air 12/18/23 08:49 12/18/23 08:49 12/18/23 08:49 12/18/23 08:49 12/18/23 04:10 12/18/23 04:09 Oxygen Delivery Method Room Air Weight: 200 lb 9.93 oz Body Mass Index (BMI) 36.6 Intake & Output: Intake and Output for Last 24 Hours 12/16/23 12/17/23 12/18/23 23:59 23:59 23:59 Intake Total 766.65 / 766.65 Output Total 800 / 800 Balance -33.35 / -33.35 Lab / Micro Data 12/17/23 03:10 Labs: Laboratory Results - last 24 hr 12/17/23 08:00: Urine Opiates Screen NEGATIVE, Urine Methadone Screen NEGATIVE, Ur Barbiturates Screen NEGATIVE, Ur Phencyclidine Scrn NEGATIVE, Ur Amphetamines Screen NEGATIVE, MDMA (Ecstasy) Screen NEGATIVE, U Benzodiazepines Scrn NEGATIVE, Urine Cocaine Screen NEGATIVE, U Cannabinoids Screen NEGATIVE ROS Constitutional Constitutional: Denies chills, fatigue, fever(s), poor appetite or weakness Eyes Eyes: Denies blurry vision, change in vision, seeing flashes or spots in vision ENT HEENT: Denies dizziness, headache(s), loss taste/smell or sore throat Cardiovascular Cardiovascular: Denies chest pain, dizziness, dyspnea, irregular heart rhythm, palpitations or rapid heart rate Respiratory/Chest Respiratory/Chest: Denies chest tightness, cough, dyspnea or breast pain Gastrointestinal Gastrointestinal: Denies abdominal pain, constipation or vomiting Genitourinary Genitourinary: Denies dysuria or flank pain Musculoskeletal Musculoskeletal: Denies difficulty walking, joint pain, limited range of motion or numbness Neurologic Neurologic: Denies abnormal movements, abnormal speech, dizziness, numbness, seizure-like activity or syncope Psychiatric Psychiatric: Denies anxiety, behavioral changes, change in appetite, confusion, depression or suicidal thoughts Physical Exam Const alert, oriented x3 and no apparent distress General Appearance: cooperative and comfortable Resp normal respiratory effort Cardio regular rate GI normal to inspection, nondistended, normoactive bowel sounds GI Narrative: uterus is firm below umbilicus Palpation: soft Back/Spine no CVA tenderness and thoraco-lumbar ROM normal Extremity normal to inspection, no clubbing, cyanosis or edema, no calf tenderness and no pedal edema Psych mental status grossly normal, thought process normal, cooperative, affect normal, speech normal, activity/motor behavior normal, denies homicidal ideation and denies suicidal ideation Assessment & Plan (1) Vaginal delivery: COMMENT: KW IAL 39.1 Boy PLAN: Plan s/p PPD # 1. routine post delivery care 2. breast feeding- support given 3. rh negative- rhogam work up 4. rubella immune 5. elevated lipase - will follow pp 6. ok to dc home today
--- NOTE | 2023-12-18 08:52 | DCINST_ITS ---
Discharge Instructions Diet Discharge Diet: No restrictions Activity Discharge Activity: Return to Normal Activity, May Not Drive (while taking narcotic pain medications.) and May Shower May resume sexual activity in: 4-6 weeks Dressing / Incision Call your doctor if your incision/area has: Continuous Slow Oozing, Sudden Increased Bleeding, Increased Pain/ Swelling, Increased Redness and Foul Smelling Discharge Follow Up Care Please Follow Up With: Amarilis Guzmán DO When: Call [phone] to make an appointment with your doctor in 6 weeks. If you had elevated blood pressure or 4th degree laceration, you will need to be seen in 2 weeks. Test Results: Test results from this visit will be discussed in further detail at your follow- up appointment, if applicable. Discharge Plan Admission Admit Date/Time: 12/17/23 04:01 Primary Reason for Your Visit: vaginal delivery Attending Provider: Tanya Mcduffie Primary Care Provider: John Colindres Instructions Patient Instructions: Kick Counts, ED False Labor, OB Triage: Return to Hospital or Notify Physician if you Experience: Discharge Orders/Prescriptions Prescriptions: New ibuprofen 800 mg tablet 800 mg PO Q8H PRN (Reason: pain) Qty: 30 0RF oxycodone-acetaminophen [Percocet] 5-325 mg tablet 1 tab PO Q4H PRN (Reason: pain) 7 Days Qty: 10 0RF Rx Instructions: 1-2 tabs q 4 hrs as needed for pain No Action PNV cmb#95-ferrous fumarate-FA [ Formula] 28 mg iron- 800 mcg tablet 1 tab PO DAILY Referrals / Follow Up: John Colindres MD [Primary Care Provider] - Disposition Disposition (needs filled in before D/C Order can be placed): Home, Self Care
--- NOTE | 2023-12-18 09:29 | CASEMGMT ---
Social Work Assessment Labor and Delivery Unit Date/Time of referral: 12/17/23, 4:22am Referred by: Tanya Mcduffie Date/Time of intervention: 12/18/23, 9:00am Reason for referral: history of anxiety and depression, THC use in 04/23, history of addiction of a parent History obtained from: DASIA Household composition: HARJINDER Barbour, children ages 14, 4 and now baby Walker. The 14 year old is FOTom's child, MOB's stepchild, and this child's mother is not involved. MOB and HARJINDER have been together for 13 years, for 7 Parent/guardian status: MOB and HARJINDER are the guardians of all 3 children. Medical History: MOB: cholecystis, history of anxiety and PPD. Baby: Baby Walker born 12/17/23, 3:31am, 3940 grams, Apgars 7 and 8 at one and five minutes. Educational Status: MOB completed high school, HARJINDER did not complete high school Financial Concerns: None, MOB is a say at home mom, HARJINDER works as a mechanical design drafter, has had most of his training through [employer] as per MOB Infant Supplies: They have all needed supplies for baby including diapers, wipes, clothing, crib, bassinet, car seat. MOB plans to breast feed. Childcare/Caregivers: MOB, FOB MOB and HARJINDER's mothers, MOB also reports aunts and uncles in the area who can help Transportation: They have 2 running vehicles(and a couple that are not running) Programs/Agencies involved: None Children's Services/Legal Issues: None Behavioral Health issues: Mental Health: FOB: History of ADHD, diagnosed as a child, not on medications and functioning well as per MOB. MOB: History of anxiety and depression. DASIA states was not diagnosed with anxiety until she was an adult, but does think she had anxiety when in high school. MOB has not been on medications or been in counseling in the past. She states has had anxiety attacks, has not had in about a year. We spoke about the history of PPD and anxiety, and panic attacks. Pt states she reaches out to family, her mother and are both good supports and are able to help her when she is anxious. She also attributes the PPD to having her 4 year old in 2020 during the pandemic, so she had very little support. She anticipates will have better support now. We spoke about medication, she is not wanting to take anything for PPD or anxiety, states she is not good at taking medication. She is open to counseling however. Safety: DASIA reports no safety concerns. Substance abuse: DASIA tested positive for marijuana in April of 2023. She states this was before she knew she was , and stopped using once she knew she was . DASIA does not plan on using marijuana any more. She states she had the medical marijuana card for anxiety. She states she had gotten it through a doctor in [place]. We spoke about what she would do should she have symptoms again, she states she plans to utilize her social supports, and is open to counseling. Tox screen for MOB positive on 04/28/23 for cannabinoids, negative on 09/01/22 and 12/16/22. Baby's tox screen is negative, meconium is pending. Family history of substance abuse: DASIA's father was an alcoholic. He seven years ago after a surgery. MOB states that this does not have an impact on her at this time, though does report it still impacts her mother. Family/Social Stressors: None other than the stress of having a teen aged girl Support Systems: MOB's and FOB's mothers, MOB's aunts and uncles, MOB's best friend. Depression/Anxiety/Shaken baby/Safe Sleeping/Mental Health Resources/[facility] Resources/Help Me Grow: SW gave MOB resources on all of these topics and reviewed them w/MOB. SW reviewed in particular information about PPD and anxiety, encouraged MOB to reach out and consider counseling, should she be having increased symptoms. SW also pointed out to MOB crisis hotlines if needed. Assessment: SW spoke w/MOB, MOB then holding while SW speaking w/MOB. MOB seems appropriate in care of baby. MOB open w/SW and answered all questions. SW did explain to MOB will need to check in w/Children's Services due to the positive tox screen in April, explained will let her know if [facility] would open a case or not. MOB states understanding. SW did call Children's Services, explained the situation. SW informed that this is not a case they would open. SW let MOB know this, she states understanding. Plan: Baby will go home w/MOB and FOB at discharge, no further forensic social worker anticipated at this time. ARTEMIO Davidson
== END 2023-12-18 14:00 | disposition home or self-care (01) | DRG 807 ==
PROVIDERS: Admitting Provider Advanced Practice Midwife; PCP Family Medicine; Visit Provider Advanced Practice Midwife
DX: O69.81X0 Labor and delivery complicated by cord around neck, without compression, not applicable or unspecified (principal); Z37.0 Single live birth; O26.893 Other specified pregnancy related conditions, third trimester; Z67.31 Type AB blood, Rh negative; O70.0 First degree perineal laceration during delivery; O99.892 Other specified diseases and conditions complicating childbirth; R74.8 Abnormal levels of other serum enzymes; Z3A.38 38 weeks gestation of pregnancy; Z87.59 Personal history of other complications of pregnancy, childbirth and the puerperium
CPT/HCPCS: 59025; 59050; 80307; 85025; 85461; 86780; 86850; 86900; 86901; 90384; 99221; J7120; A4216; G0378; J2790; J2791

== ENCOUNTER → 2024-01-25 | Outpatient (CLI) | payer OTHER, SELFPAY ==
--- NOTE | 2024-01-25 17:08 | CT_ITS ---
STUDY: CT ABDOMEN WITH AND WITHOUT CONTRAST REASON FOR EXAM: Female, 33 years old. Elevated lipase -- Pancreatic protocol RADIATION DOSAGE (If Supplied By Facility): CTDIvol = ( 17.89 ) mGy, DLP = ( 1495.21 ) mGycm TECHNIQUE: Transaxial images were obtained pre and post I.V. administration of Oral and amp; IV Readi-CAT and amp; 100mL Isovue-370, and with oral contrast. Sagittal and coronal images were reconstructed. Individualized dose optimization techniques were used for this CT. COMPARISON: Comparison is made with prior study dated December 01, 2019. FINDINGS: Increased linear markings in the posterior aspect of the lingular segment of the left upper lobe suggestive of either linear atelectasis and/or scarring. The visualized portions of the heart are within normal limits. There is decreased attenuation of the liver consistent with steatosis. Hepatomegaly. There is a 4.8 mm cyst in the anterior medial aspect of the right upper lobe superiorly. There are surgical clips in the gallbladder fossa consistent with a prior cholecystectomy. Normal spleen. Normal pancreas. Normal bilateral adrenal glands. Normal right kidney. Normal left kidney. Normal visualized stomach. Normal small intestine. There are multiple colonic diverticula consistent with diverticulosis. The appendix is visualized and appears normal. Normal abdominal aorta. Normal inferior vena cava. Normal retroperitoneum. The endometrial measures 2.4 cm. Normal abdominal wall. Normal osseous structures. Straightening of the normal lumbar lordosis. CT/Abdomen W/WO IV Contrast IMPRESSION: Hepatomegaly. Diffuse fatty infiltration of the liver. Status post cholecystectomy. Sigmoid diverticulosis. Electronically Signed: Rudolph Cadena MD at 9:58 EDT ,
== END | disposition home or self-care (01) ==
LOC: CT 17:07
PROVIDERS: PCP Family Medicine; Referring Provider Internal Medicine Gastroenterology; Visit Provider Internal Medicine Gastroenterology
DX: R74.8 Abnormal levels of other serum enzymes (principal)
CPT/HCPCS: 74170; Q9967

== ENCOUNTER → 2024-01-26 | Outpatient (CLI) | payer OTHER, SELFPAY ==
--- NOTE | 2024-01-26 11:30 | MRI_ITS ---
INDICATION: elevated lipase EXAMINATION: MRI - MR MRCP W/O Contrast TECHNIQUE: Multiplanar and multisequence MR images of the abdomen were obtained with 2D thick slab rotational MRCP sequence. Three-dimensional MIP post-processing reconstructions were performed. IV Contrast Dosage and Agent: None. COMPARISON: CT abdomen and pelvis January 25, 2024. FINDINGS: LIVER: Homogeneous hepatomegaly with diffuse parenchymal signal loss of fat saturation sequence compatible with steatosis. No discrete mass is seen on this noncontrast exam. Normal morphology. GALLBLADDER AND BILIARY TREE: Surgically absent gallbladder. The CBD measures up to 8 mm. Distal tapering of the duct to the ampulla on axial T2 series 3 and some MRCP image 1 and 9 without evidence of choledocholithiasis. PANCREAS: Homogeneous parenchyma without noncontrast evidence of pancreatic mass. No pancreatic duct dilation or peripancreatic inflammation. SPLEEN: Homogeneous parenchyma with borderline splenomegaly at 14.2 cm on coronal images ADRENAL GLANDS: No nodules. KIDNEYS: Normal renal size and position. No hydronephrosis. No mass. LYMPH NODES: No enlarged periportal or retroperitoneal lymph nodes. PERITONEUM: No ascites or fluid collection. VESSELS: Aorta is non-dilated. BOWEL: Scattered colonic diverticuli present without surrounding inflammation to suggest diverticulitis. LOWER CHEST: Trace costophrenic angle effusions.. MRI/MRCP Abdomen without Contrast IMPRESSION: Common bile duct caliber is within normal limits postcholecystectomy without evidence of choledocholithiasis No gross biliary ductal dilatation or noncontrast evidence of pancreatic mass. Pancreatic MRI with and without IV contrast and diffusion imaging could further evaluate as clinically indicated. Hepatic steatosis with hepatomegaly. Borderline splenomegaly. Colonic diverticulosis without diverticulitis in the study [id number]. Trace costophrenic angle effusions. Electronically Signed: Willie Healy MD at 22:55 EDT ,
== END | disposition home or self-care (01) ==
LOC: MRI 11:18
PROVIDERS: PCP Family Medicine; Referring Provider Internal Medicine Gastroenterology; Visit Provider Internal Medicine Gastroenterology
DX: R74.8 Abnormal levels of other serum enzymes (principal)
CPT/HCPCS: 74181

== ENCOUNTER 2024-03-22 11:37 | Day surgery (SDC) | payer OTHER, SELFPAY ==
[2024-03-22] VITALS (8 sets, daily range): BP systolic 80–107; BP diastolic 30–81; PULSE 86–121; RESP 16–18; TEMP 36.3–37.3; O2SAT 93–99; BMI 33.5
--- NOTE | 2024-03-22 11:42 | EKG12_ITS ---
Test Reason : preop Blood Pressure : / mmHG Vent. Rate : 086 BPM Atrial Rate : 086 BPM P-R Int : 138 ms QRS Dur : 084 ms QT Int : 352 ms P-R-T Axes : 034 019 024 degrees QTc Int : 421 ms Normal sinus rhythm Normal ECG No previous ECGs available Confirmed by SHANE REESE, DM ([id number]), medical editor NELSON AGUILERA ([id number]) on 03/24/2024 9:32:23 AM Referred By: John Colindres Confirmed By:DM LYNN MD
[2024-03-22 12:10] LABS: Internal QC Validated? YES +Cl - CLEAR BKGD; Pregnancy, Urine Negative Negative
[2024-03-22] MEDS: Lactated Ringers 1,000 ML 15 ML IV (12:10)
--- NOTE | 2024-03-22 12:30 | EGD_PTH ---
PATIENT: RAGHAV BILLY LOC: EN U#:[id number] AGE/SX: 34/F ROOM: RE03/22/[address]: Dr. Pepe Saeed DO : 1990 BED: DIS: 03/22/2024 SPEC #: [id number] RECD: 03/22/24 14:49 STATUS: TC RECamron #: [id number] AJ: 03/22/24 12:[address]: Pepe Saeed DEPT: SURGICAL PATHOLOGY RECD BY: Mary Lou Cabello ENTERED: 03/23/24 10:28 SP TYPE: EGD BIOPSY OT DR: Dr. John Colindres MD Tissues: Duodenum, NOS Procedures: Surgery Specimen Level IV HEADER OPERATION: ERCP with pancreatic stent placement, balloon sweep PRE-OP DIAGNOSIS: Abnormal serum lipase level TISSUE SUBMITTED: Duodenum biopsy MICROSCOPIC DIAGNOSIS Duodenum, biopsy: Fragments of duodenal mucosa with acute and chronic inflammation, focal villous blunting and gastric metaplasia. See comment. 03/24/2024 COMMENT Correlation with clinical, endoscopic findings and appropriate follow up are necessary. MICROSCOPIC DESCRIPTION Slides are reviewed. GROSS DESCRIPTION Received in fixative is one container labeled with the patient's name and designated Duodenum biopsy. The specimen consists of two irregular fragments of light yeboah soft tissue that in aggregate measure 0.6 x 3.0 x 0.1 cm. The specimen is totally submitted in one cassette. 03/23/2024 TC:2 CPT:76913
--- NOTE | 2024-03-22 12:58 | PCM.PRE.AN2 ---
ASA Classification* ASA Classification ASA Classification: 2 Assessment & Plan Anesthesia* Anesthesia Assessment Anesthesia Assessment: Discussed sedation and/or anesthesia options, risks, benefits, and alternatives with patient/parents/legal guardian/POA. Questions invited. The patient/parents/legal guardian/POA seems to understand and agrees to proceed with anesthesia plan. Reviewed the physical assessment, medical history, allergy history and patient home medications list prior to surgery/procedure/anesthetic and documented any changes. Performed airway and anesthesia risk assessments. Anesthesia Type Anesthesia Type: General History Source History Obtained from:: Patient and Chart Anesthesia Focused Assessment* Temperature: 99.2 F Pulse Rate: 86 Blood Pressure: 107/81 Respiratory Rate: 16 Pulse Ox: 99 Oxygen Delivery Method: Room Air Airway Assessment Mouth opens: >3 cm Mallampati Score: III Teeth Condition: Loose (Patient has a loose filling on the right lower molar.) Neck Range of motion (ROM): Full ROM Pertinent Findings EKG Pertinent Findings:: March 22, 2024. Normal sinus rhythm. Focused Labs Anesthesia Preop lab: CBC WBC 16.2 K/mm3 (4.4-11.0) H 12/17/23 03:10 RBC 4.42 M/mm3 (4.2-5.4) 12/17/23 03:10 Hgb 11.5 g/dL (12.0-15.0) L 12/17/23 03:10 Hct 35.8 % (37-47) L 12/17/23 03:10 Plt Count 304 K/mm3 (150-450) 12/17/23 03:10 CHEMISTRY Potassium 3.9 mmol/L (3.5-5.1) 10/22/23 14:45 Sodium 137 mmol/L (136-145) 10/22/23 14:45 BUN 7 mg/dL (7-18) 10/22/23 14:45 Creatinine 0.54 mg/dL (0.55-1.02) L 10/22/23 14:45 Glucose 88 mg/dL (74-106) 10/22/23 14:45 TSH 1.85 uIU/mL (0.358-3.74) 11/26/18 12:18 COAG HCG, Quant 67340 mIU/mL (1-3) H 05/03/23 16:20 Urine Test Negative Negative 03/22/24 11:53 Pre-Assessment Diagnosis/Proposed Procedure Planned Operative Procedure(s): ERCP Anesthesia History 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 When Was Last Pacemaker Check QUESTION #4 FULL TEXT: You/Your Family Experience fever (hyperthermia) with Anesthesia Last Oral Intake Last Oral intake: Last Oral Intake NPO since Meds taken in AM with sips of water? 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 Female Yes 03/18/24 13:31 HX of Motion Sickness Yes 03/18/24 13:31 HX of N/V After Surgery No 03/18/24 13:31 Non-Smoker Yes 03/18/24 13:31 Duration of Surgery greater No 03/18/24 13:31 than 60 minutes Number of Risk Factors 3 03/18/24 13:31 PONV Score Moderate Risk 03/18/24 13:31 Height & Weight Height & Weight: Anesthesia: Height & Weight Height 5 ft 2 in 03/22/24 11:58 Weight: 83 kg 03/22/24 11:58 Body Mass Index (BMI) 33.5 03/22/24 11:58 Respiratory Assessment Respiratory Assessment - composition teacher: Respiratory Tract Infection Hx - composition teacher Hx Respiratory Tract Infection No 03/18/24 13:31 STOP Sleep Apnea STOP Sleep Apnea - composition teacher: STOP Sleep Apnea - composition teacher Hx Hypertension No 03/18/24 13:31 Hx Sleep Apnea No 03/18/24 13:31 CPAP No 12/01/19 15:32 BIPAP No 12/01/19 06:47 Do you snore loudly (louder No 03/18/24 13:31 than talking or can be heard Do you often feel tired/ No 03/18/24 13:31 fatigued/ sleepy during daytime? Has anyone observed you stop No 03/18/24 13:31 breathing during sleep? STOP Results Negative 03/18/24 13:31 QUESTION #5 FULL TEXT : Do you snore loudly (louder than talking or can be heard through closed doors)? Tobacco Use History Tobacco Use History - composition teacher: Tobacco Use History - composition teacher Tobacco Use Smoking Status Never smoker 03/18/24 13:31 Hx Tobacco Use No 03/18/24 13:31 Years Smoking Packs Smoked per Day Smoking Cessation Date was within the last 15 years Hx Smoking Cessation Date Hx Smoking Cessation Counseling Hematologic Medial History Hematologic Hx - composition teacher: Hematologic Medical Hx - rn invasive Hx of Blood Transfusion No 03/18/24 13:31 Hx of Transfusion in last 3 No 03/18/24 13:31 Months Date of Last Transfusion (if within last 3 months) Ever experience any problems No 03/18/24 13:31 with transfusion(s)? Specify any problems Hx of Preganancy in last 3 Yes 03/18/24 13:31 Months Nurse Filling Out Transfusion DSCHRIBER 03/18/24 13:31 & Questions: Date: 03/18/24 03/18/24 13:31 Time: 13:33 03/18/24 13:31 Patient unable to answer at this time (ie. confused, unrespo /Reproduction History /Reproductive History - composition teacher: /Reproductive Hx- composition teacher Hx Now No 03/18/24 13:31 Gestational Age (in weeks): EDC: Hx Hx Para Hx Section SAB Yes 03/18/24 13:31 Active Medications Active Medications: Current Medications Generic Name Dose Route Start Last Admin Trade Name Freq PRN Reason Stop Dose Admin Lactated Ringer's 1,000 mls @ 15 mls/hr 03/22/24 11:45 03/22/24 12:10 IV 03/28/24 01:04 15 mls/hr .Q48H [place] Administration Protocol [facility] Medical History (Updated 03/18/24 @ 13:38 by Katerina Hatch) () Wears glasses Alcohol use Migraine headache Loss of consciousness Heartburn Non-smoker History of edema Bile duct abnormality Acute cholecystitis Rh negative state in antepartum period Supervision of normal History of anxiety Home Medications ?Medication ?Instructions ?Recorded ?Last Taken ?Type vit no.95-ferrous 1 tab PO DAILY 11/12/23 12/16/23 12:00 History fumarate 28 mg-folic acid 800 mcg 1 TAB tablet ( Formula) ibuprofen 800 mg tablet 800 mg PO Q8H PRN pain #30 tabs 12/18/23 Unknown Rx Allergy/AdvReac Type Severity Reaction Status Date / Time No Known Allergies Allergy Verified 03/22/24 11:58 Family History Mother Diabetes Hypertension Hyperlipidemia Father Diabetes Hyperlipidemia Hypertension Sister Cancer thyroid cancer Endometriosis Surgical History History of laparoscopic cholecystectomy (~11/2019) Social History adopted: No household members: spouse and children number of children: 2 current occupational status: unemployed current occupation: [employer] pets and animals: Yes pets and animals: dog(s) and other details: RABBIT history of recent travel: Yes ([place] ) out of state: Yes out of country: No sexually active: Yes Smoking Status: Never smoker alcohol intake: former details: social- NOT WHILE substance use type: marijuana well-balanced diet: about half the time caffeine: No eating out: 1-3 times/week during the past year weight has: remained stable what type of physical activity do you participate in: none cami/episcopal: Mormon seatbelt use: always do you feel safe at home: Yes additional social history: Zev Benavides Review of Systems (Anesthesia) ROS Narrative System reviewed and no additional complaints, except as documented.
--- NOTE | 2024-03-22 13:04 | PCM.HP.BLA ---
History and Physical Date of Admission: 03/22/24 RAGHAV BILLY, is a 33 F who presents to the office today for follow up. *BGI established 5 pt reports that she is currently 31 weeks . She was referred to GI for her rising lipase levels. Pt reports that she will occasionally get a pain in her RUQ where her gallbladder was; removed in November 2019. OV 8.. pt reports that since having her baby her pain has gone away and she is feeling well overall and denies GI symptoms of concern at this time. ROS Const Constitutional: No fatigue, fever(s) or weight change ENT ENT: No difficulty swallowing Gastro GI: No abdominal pain, belching, bloating, change in bowel habits, change in stool character, coffee ground emesis, constipation, cramping, diarrhea, heartburn, difficulty swallowing, feeling full early, excessive flatus, incontinent of stools, Vomiting blood/hematemesis, Blood in stool, loose stools, Black,tarry stools, nausea/dyspepsia, pain with swallowing, vomiting or other Musc Musculoskeletal: No joint pain Skin Skin: No yellowing of the eye or itchy eyes Psych Psychiatric: No anxiety and No depression Endo Endocrine: No fatigue or weight change Aller/Imm Allergy/Immunologic: No itchy eyes Mars/Lymp Hematologic/Lymphatic: No easy bleeding or easy bruising Exam Const General: cooperative and comfortable Nutritional Appearance: average body habitus and well nourished [facility] Head: normal to inspection Ears: hearing grossly normal bilaterally Nose: external nose normal Face and sinus: normal facial exam Mouth: oral mucosae normal Throat: posterior oropharynx normal Eyes General: appearance normal, both eyes and all related structures Neck Neck: normal visual inspection Chest Chest palpation & inspection: normal inspection of the chest and normal palpation of entire chest wall Resp Effort & Inspection: normal respiratory effort Auscultation: Bilateral: Clear to Auscultation Cardio Palpation: normal PMI Rate: regular rate Rhythm: regular rhythm GI Inspection: normal to inspection Auscultation: normal bowel sounds Percussion: normal to percussion Palpation: no hepatosplenomegaly Skin General: no rashes or lesions noted Neuro General: patient alert Extrem General: normal to inspection Psych Affect: normal affect Assessment and Plan Assessment and Plan (1) Abnormal serum lipase level: Status: Resolved Comment: Weekly BPP Plan: She is a 33-year-old with history of hyperlipasemia during her last trimester she has never had a diagnosis of pancreatitis via imaging. She has undergone cholecystectomy 10 weeks after her of her first son. She has a strong family history of cholecystitis resulting in cholecystectomies. She has no history of celiac disease, hyperlipidemia, cystic fibrosis, alcohol usage. When she had her gallbladder out she did not have any episodes of choledocholithiasis. She was diagnosed with pancreatitis secondary to elevated lipase that is been ranging from 80-110 on 3 separate occasions. Pancreatitis is an inflammatory disorder of the pancreas, the clinical course of which ranges from mild disease to multiple organ dysfunction and . Guidelines for the diagnosis of pancreatitis commonly stipulate the presence of two of the three following criteria: typical abdominal pain; characteristic (CT) findings, and/or amylase and/or lipase levels of three or more times the upper limit of normal (ULN). The sensitivity and specificity of serum lipase for pancreatitis at a cut-off of three times the ULN range from 64% to 100% and from 99% to 100%, respectively. Lipase is an enzyme that catalyses the breakdown of triglycerides.?In addition to pancreatic acinar cells, lipase is found in the gastrointestinal tract, including the oesophagus, duodenum, stomach and colon.?Lipase has also been described in the liver, heart, lungs and leukocytes.?Pancreatic lipase content is approximately 100 times that of the small intestine and liver, and the pancreas to serum lipase concentration gradient is close to 20,000. The differential diagnosis for her hyperlipasemia is celiac disease, transient choledocholithiasis, , hyperlipidemia. We will do biochemical workup since she is not having symptoms at this time ; we are not going to get any further imaging at this time. I told her if we do get imaging MRI and CT pancreatic protocol. She is okay with conservative therapy at this time. As there is no medications and we cannot see any biochemical evidence pancreatitis at this time other than a mildly elevated lipase. She got an MRCP that shows stricturing disease at the end of the distal common bile duct possibly cause an acute recurrent pancreatitis. There was no pancreatic divisum. There was no clear stone seen. We had a long discussion regarding possible sphincter of Oddi syndrome type II resulting in pancreatitis. There was no pancreatitis on her last CT scan but her lipase continues to go up and down and she continues to have abdominal pain. Therefore I think she would benefit from either prophylax tenting or sphincterotomy. She is okay with excepting risk of possible OCP pancreatitis. She was explained alternatives, risk, benefits include not withstanding bleeding, infection, sepsis, perforation, need for emergency to . She will have an ASA of 3.
--- NOTE | 2024-03-22 13:40 | RAD_ITS ---
EXAM: FL FLUOROSCOPY < 1 HOUR CLINICAL INDICATION: Bile duct abnormality TECHNIQUE: Fluoroscopic images performed in multiple projections. Fluoroscopic guidance was provided by a physician. No radiologist was present. COMPARISON: No relevant prior studies available. FINDINGS: Endoscopy and cannulation were carried out by the referring physician. The common bile duct was cannulated. No definite constant filling defect is seen. The last image demonstrates common bile duct stent. Images were obtained for documentation. Fluoroscopy time: 18.9 seconds. Number of fluoroscopic images: 11. Radiation dose: 3.65 mGy. RAD/ERCP Biliary/Pancreas IMPRESSION: ERCP as described above. Electronically Signed: Jl Adam MD at 13:23 EDT ,
--- NOTE | 2024-03-22 14:17 | OP.ERCP_ITS ---
Patient Name: Nedra Villa Procedure Date: 03/22/2024 12:34 PM Date of : 1990 Age: 34 Procedure: ERCP Indications: Abdominal pain of suspected biliary or pancreatic origin, Abnormal abdominal CT, Abnormal MRCP, Elevated liver enzymes Providers: Pepe Saeed DO Medicines: General Anesthesia Patient Profile: This is a 34 year old female. Refer to note in patient chart for documentation of history and physical. Patient has symptoms of chronic right upper quadrant abdominal pain. This patient has no history of previous ERCP. She is status post laparoscopic cholecystectomy. Complications: No immediate complications. Procedure: Pre-Anesthesia Assessment: - Prior to the procedure, a History and Physical was performed, and patient medications and allergies were reviewed. The patient is competent. The risks and benefits of the procedure and the sedation options and risks were discussed with the patient. All questions were answered and informed consent was obtained. Patient identification and proposed procedure were verified by the physician in the pre-procedure area. Mental Status Examination: alert and oriented. Airway Examination: normal oropharyngeal airway and neck mobility. Respiratory Examination: clear to auscultation. CV Examination: normal. Prophylactic Antibiotics: The patient does not require prophylactic antibiotics. Prior Anticoagulants: The patient has taken no anticoagulant or antiplatelet agents except for NSAID medication. ASA Grade Assessment: II - A patient with mild systemic disease. After reviewing the risks and benefits, the patient was deemed in satisfactory condition to undergo the procedure. The anesthesia plan was to use general anesthesia. Immediately prior to administration of medications, the patient was re-assessed for adequacy to receive sedatives. The heart rate, respiratory rate, oxygen saturations, blood pressure, adequacy of pulmonary ventilation, and response to care were monitored throughout the procedure. The physical status of the patient was re-assessed after the procedure. After obtaining informed consent, the scope was passed under direct vision. Throughout the procedure, the patient's blood pressure, pulse, and oxygen saturations were monitored continuously. The Duodenoscope was introduced through the mouth, and advanced to the duodenum and used to inject contrast into the bile duct and ventral pancreatic duct. The ERCP was accomplished without difficulty. The patient tolerated the procedure well. Scope In: 1:44:02 PM Scope Out: 2:05:39 PM Total Procedure Duration Time 0 hours 21 minutes 37 seconds Findings: The bead filler film was normal. The esophagus was successfully intubated under direct vision. The scope was advanced to a normal major papilla in the descending duodenum without detailed examination of the pharynx, larynx and associated structures, and upper GI tract. The upper GI tract was grossly normal. The ventral pancreatic duct was deeply cannulated with the short-nosed traction sphincterotome. Contrast was injected. I personally interpreted the pancreatic duct images. Ductal flow of contrast was adequate. Image quality was adequate. Contrast extended to the pancreatic duct. The entire opacified area was normal. A long 0.025 inch Jagwire was passed into the ventral pancreatic duct. A 5 mm ventral pancreatic sphincterotomy was made with a traction (standard) sphincterotome using ERBE electrocautery. There was no post-sphincterotomy bleeding. To find object(s) the ventral pancreatic duct was swept with a 6 mm balloon starting at the pancreatic duct in the tail of the pancreas. Two stones were removed. All stones remained. One 5 Fr by 7 cm temporary stent was placed 5 cm into the ventral pancreatic duct. Clear fluid flowed through the stent. The stent was in good position. A long 0.025 inch Jagwire was passed into the biliary tree. The short-nosed traction sphincterotome was passed over the guidewire and the bile duct was then deeply cannulated. Contrast was injected. Opacification of the lower third of the main bile duct was successful. The maximum diameter of the ducts was 10 mm. The lower third of the main bile duct contained one stone, which was 6 mm in diameter. The entire biliary tree was moderately dilated, secondary to a stricture. The largest diameter was 11mm. A 5 mm biliary sphincterotomy was made with a traction (standard) sphincterotome using ERBE electrocautery. There was no post-sphincterotomy bleeding. The biliary tree was swept with a 12 mm balloon starting at the bifurcation and right intrahepatic duct(s). All stones were removed. The upper GI tract was traversed under direct vision without detailed examination. Excessive fluid was found in the entire examined stomach. Diffuse moderate inflammation characterized by friability and granularity was found in the duodenal bulb, in the first portion of the duodenum and in the second portion of the duodenum. Biopsies were performed in the first portion of the duodenum and in the second portion of the duodenum through the esophagogastroduodenoscope with a cold forceps for histology. Impression: - Excessive gastric fluid. - Chronic duodenitis. - Biopsies were performed in the first portion of the duodenum and in the second portion of the duodenum. - The entire biliary tree was moderately dilated, secondary to a stricture. - Choledocholithiasis was found. Complete removal was accomplished by biliary sphincterotomy and balloon extraction. - Pancreatic stones were found. - A pancreatic sphincterotomy was performed. - The ventral pancreatic duct was swept. - One temporary stent was placed into the ventral pancreatic duct. - A biliary sphincterotomy was performed. - The biliary tree was swept. Procedure Code(s): --- Professional --- 94189, Endoscopic retrograde cholangiopancreatography (ERCP); with placement of endoscopic stent into biliary or pancreatic duct, including pre- and post-dilation and guide wire passage, when performed, including sphincterotomy, when performed, each stent 61330, 51, Endoscopic retrograde cholangiopancreatography (ERCP); with removal of calculi/debris from biliary/pancreatic duct(s) 52875, 59, Endoscopic retrograde cholangiopancreatography (ERCP); with sphincterotomy/papillotomy 97139, Esophagogastroduodenoscopy, flexible, transoral; with biopsy, single or multiple 26273, 26, Endoscopic catheterization of the pancreatic ductal system, radiological supervision and interpretation CPT copyright 2021 [employer]. All rights reserved. The codes documented in this report are preliminary and upon nasc[employer] pit crew person review may be revised to meet current compliance requirements. Pepe Saeed DO 03/22/2024 2:16:42 PM This report has been signed electronically. Number of Addenda: 0 Note Initiated On: 03/22/2024 12:34 PM
--- NOTE | 2024-03-22 14:17 | OP.CCLET_ITS ---
03/22/2024 John Colindres Md Re : ERCP procedure for Nedra Vlila Dear Jens This procedure was performed on Friday, March 22, 2024. My impressions and recommendations are as follows: Impressions : - Excessive gastric fluid. - Chronic duodenitis. - Biopsies were performed in the first portion of the duodenum and in the second portion of the duodenum. - The entire biliary tree was moderately dilated, secondary to a stricture. - Choledocholithiasis was found. Complete removal was accomplished by biliary sphincterotomy and balloon extraction. - Pancreatic stones were found. - A pancreatic sphincterotomy was performed. - The ventral pancreatic duct was swept. - One temporary stent was placed into the ventral pancreatic duct. - A biliary sphincterotomy was performed. - The biliary tree was swept. Recommendations : My findings are described in the full procedure note, which is enclosed. If I can be of further assistance, please feel free to contact me at . Sincerely, Pepe Saeed, 03/22/2024 2:16:42 PM This report has been signed electronically.
--- NOTE | 2024-03-22 14:24 | PCM.POST.ANE ---
Anesthesia: Postop Eval I Current Vital Signs Temperature: 97.4 F Pulse Rate: 114 Blood Pressure: 93/66 Respiratory Rate: 18 Pulse Ox: 94 Oxygen Delivery Method: Nasal Cannula Oxygen Flow Rate (L/min): 2 Assessment Airway patent: Yes Spontaneous unlabored respirations: Yes Mental status: Asleep nausea: No Vomiting: No Anesthesia Complication: No Fluid Hydration Crystalloid volume administer (ml): 600 Total IV fluid infused: 600 Progress Note Anesthesia document: Postop Eval 1 completed: Yes
--- NOTE | 2024-03-22 17:15 | PCM.POSTANE2 ---
Anesthesia Postop Eval I Sum Postop Eval Completion status Anesthesia document: Postop Eval 1 completed: Yes Anesthesia Postop Eval I Summary Anesthesia Postop Eval I Summary: Anesthesia Postop Eval I: Assessment Summary Airway patent Yes 03/22/24 14:25 [email or web address] Spontaneous unlabored Yes 03/22/24 14:25 [email or web address] respirations Mental status Asleep 03/22/24 14:25 [email or web address] nausea No 03/22/24 14:25 [email or web address] Vomiting No 03/22/24 14:25 [email or web address] Anesthesia Postop Eval I: Fluid Summary Crystalloid volume administer 600 03/22/24 14:25 [email or web address] (ml) Colloids volume administered ( ml) Blood Product volume administered (ml) Total IV fluid infused 600 03/22/24 14:25 [email or web address] Anesthesia Postop Eval I: Summary Notes Anesthesia Complication No 03/22/24 14:25 [email or web address] Anesthesia Complication Comment: Post-operative progress note Anesthesia: Postop Eval II Evaluation Mental status: Awake Pain Level: 0 nausea: No Vomiting: No
== END 2024-03-22 15:31 | disposition home or self-care (01) ==
LOC: EN 11:38 → AC 11:40
PROVIDERS: Anesthesiology; PCP Family Medicine; Referring Provider Family Medicine; Visit Provider Internal Medicine Gastroenterology
PROC: (CPT 43260; principal; 2024-03-22 12:10)
DX: K80.51 Calculus of bile duct without cholangitis or cholecystitis with obstruction (principal); K86.89 Other specified diseases of pancreas; K29.80 Duodenitis without bleeding; Z90.49 Acquired absence of other specified parts of digestive tract; Z83.79 Family history of other diseases of the digestive system
CPT/HCPCS: 43264; 43274; 43239; 74330; 76000; 81025; 88305; 93005; J7120; J2405

== ENCOUNTER → 2024-03-25 | Outpatient (CLI) | payer OTHER, SELFPAY ==
--- OUTSIDE RECORDS SUMMARY | 2024-03-25 12:19 | XMS RPT_ITS | CCD ---
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 Name Role Phone JAD LEONG Primary Care Unavailable Unavailable Primary Care Provider MARTINEZ Hercules Attending Unavailable AMARILIS VELASQUEZ Referring Unavailab le VANNA PRIMARY CAREMD Primary Care Unavailable IVAN LORD Attending Unavailable AMARILIS VELASQUEZ Referring Unavailab le NO PRIMARY CAREMD Primary Care Unavailable AMARILIS VELASQUEZ Referring Unavailab le NO PRIMARY CAREMD Primary Care Unavailable IVAN LORD Attending Unavailable Results Test Name Value Interpretation Reference Range Facil ity Progress Noteon 10-14-2023 Furniture Decals Inspector Authentication Interface Message Text Maternal Medicine Consult Date of Service: 10/14/2023 Referring Provider: Amarilis Velasquez Primary Care Provider: Vanna Primary CareMd MD Reason for Consult: Dr. Amarilis Velasquez requests that Nedra be evaluated due to high serum lipase. Nedra is a 33 y.o. at 30w1d gestation who presents for evaluation of high serum lipase. HPI The patient has high lipase levels as noted above. She complains of RUQ colicky pain at 3/10. The pain is increased by fatty meals and steaks. The pain started in May of 2023 and did not go away. It lasts hours after the meal and disappears. The pain does not radiate to other areas of her abdomen. The pain is not associated with nausea, vomiting, hematemesis. She denies other GI symptoms. She is on Pepcid for heart burn that started 2 months ago. She has negative hepatitis serology and abdominal US is normal. She had a cholecystectomy in 2019. OB History Para Term AB Living 2 1 1 0 0 0 SAB IAB Ectopic Multiple Live Births 0 0 0 0 0 # Outcome Date GA Lbr Jeffery/2nd Weight Sex Type Anes PTL Lv 2 Current 1 Term 09/25/19 38w0d 3.515 kg M Vag-Spont EPI N Name: Addison Past Medical History: Diagnosis Date Anxiety Gastrointestinal complaints, nonspecific Liver disease elevated lipase in - see problem list Obesity Rh incompatibility affecting Past Surgical History: Procedure Laterality Date CHOLECYSTECTOMY 2019 No Known Allergies Social History Socioeconomic History Marital status: Spouse name: None Number of children: None Years of education: None Highest education level: None Tobacco Use Smoking status: Never Smokeless tobacco: Never Substance and Sexual Activity Alcohol use: Never Drug use: Never Infections Live with someone with or exposed to TB No History of STI's Rash or viral illness since last menstruation No 2nd STI GBS No 3rd STI Hx of Chicken Pox No Other infections No Partner has hx of genital herpes No Genetics Age is > than 35y as of estimated date No Thalassemia No Neural Tube Defect No Congenital Heart Defect No Down Syndrome No Tahir-Sachs No Babs Disease No Sickle Cell Disease or Trait No Hemophilia, Thrombophilia No Muscular Dystrophy No Cystic Fibrosis No Kati's Chorea No Intellectual Disability/Autism No Metabolic Disorder No Recurrent Loss, or a Stillbirth No Inherited Genetic or Chromosomal Disorder No Illicit; Rec.drugs; Alcohol since last menses No Family History Problem Relation Age of Onset Diabetes Mellitus II Mother Cancer Sister 25 thyroid Outpatient Encounter Medications as of 10/14/2023 Medication Sig Dispense Refill Famotidine (PEPCID PO) Take by mouth 2 times daily multivitamin (TRINATAL RX) tablet Take by mouth daily No facility-administered encounter medications on file as of 10/14/2023. Review of Systems Constitutional: Negative. HENT: Negative. Eyes: Negative. Respiratory: Negative. Cardiovascular: Negative. Gastrointestinal: RUQ pain Genitourinary: Negative. Musculoskeletal: Negative. Skin: Negative. Neurological: Negative. Endo/Heme/Allergies: Negative. Psychiatric/Behaviora l: Negative. PHYSICAL EXAM: BP 104/51 Pulse 88 Resp 18 Ht 157.5 cm Wt 84 kg (185 lb 1.6 oz) SpO2 99% BMI 33.86 kg/m Constitutional: General: She is active. HENT: Head: Atraumatic. Eyes: Extraocular Movements: EOM normal. Conjunctiva/sclera: Conjunctivae normal. Pulmonary: Effort: Pulmonary effort is normal. Abdominal: Comments: gravid uterus Musculoskeletal: Normal range of motion. Neurological: Mental Status: She is alert. X 3. Laboratory Test Results: No visits with results within 1 Year(s) from this visit. Latest known visit with results is: No results found for any previous visit. Ultrasound Results: - Please see Ultrasound test for full details. Assessment/Plan: Nedra Villa is a 33 y.o. at 30w1d with: Active Non-Hospital Problems Diagnosis Date Noted Abnormal serum level of lipase 10/13/2023 Pt had cholecystectomy in 2019 due to acute cholecystitis Pt with RUQ pain and rising Lipase in - states that she has pain every time that she eats BP WNL on OB notes Lipase on 09/18/23: 90 Lipase on 09/21/23: 97 Lipase on 10/12/23:110 Hepatitis B surface antigen is negative on 07/07/2023 Hepatitis C Antibody is non reactive on 07/07/2023 Abdominal ultrasound from 09/18/2023: impression- no acute abnormality noted The patient has high lipase levels as noted above. She complains of RUQ colicky pain at 3/10. The pain is increased by fatty meals and steaks. The pain started in May of 2023 and did not go away. It lasts hours after the meal and disappears. The pain does not radiate to other areas of her abdomen. The pain is not associated with nausea, vomiting, hematemesis. She denies other GI symptoms (more content not included)... [facility] 36on 07-07-2023 36 Received lab results for this pt, called [facility] to advise this is being sent to us in error. [facility] 36on 06-29-2023 36 Phone call to [facility] at: [phone]. I spoke with Yanni and informed her that Dr. Leong keeps receiving patients lab results and office notes. Dr. Leong has not seen the patient since 2014. Yanni will remove Dr. Leong from the patients profile and send all results to the PCP they have on file. Noted. [facility] ED NOTEon 03-09-2023 ED NOTE HNO ID: [id number] Author: Yessi Soto RN Service: ? Author Type: Registered Nurse Type: ED Notes Filed: 03/10/2023 9:58 AM Note Text: Patient Call Back Information How are you doing ? better Did we appropriately manage your pain? Yes Did you understand your discharge instructions? Yes Did you get your prescriptions filled? Were you able to make a follow-up appointment with your physician? No Were you comfortable during your stay here? Yes Did a member of the ER nursing team round on you during your visit? Yes You will receive a patient satisfaction survey in the mail in the nest 2 weeks, please take the time to fill out the survey as your input from your ER visit is very important to us. Yes Can we do anything else to help you? No Normal [facility] ED NOTE HNO ID: [id number] Author: Jazmyn Moreno RN Service: Emergency Medicine Author Type: Registered Nurse Type: ED Notes Filed: 03/09/2023 7:36 PM Note Text: Pt to ED with c/o sore throat for past week, was diagnosed with hand, foot and mouth disease on Thursday. Normal [facility] ED PROV NOTEon 03-09-2023 ED PROV NOTE HNO ID: [id number] Author: Roslyn Aguilar DO Service: Emergency Medicine Author Type: Physician Type: ED Provider Notes Filed: 03/12/2023 8:09 AM Note Text: ED Provider Note Patient Name: Nedra Villa : 1990 SERVICE DATE: 03/09/23 History Patient presents with: Sore Throat Nedra Villa is a 33 year old female who presents with Sore Throat. - Symptoms began Thursday. - Severity: moderate - Timing: constant - Quality: sore - Symptoms are associated with skin lesions on hands and feet which are improving. - Symptoms are not associated with abdominal pain, chest pain, fever, rash, shortness of breath, vomiting, difficulty swallowing, neck stiffness. Patient states she had a sore throat since Thursday. She states that she went to urgent care and was diagnosed with iuqp-lqhj-mhy-mouth disease. She states she has lesions on her hands and her feet which are improving. No difficulty swallowing. No neck stiffness. No fever or chills. No chest pain or shortness of breath. No cough. She states that she is wants to be checked for strep. History reviewed. No pertinent past medical history. PAST SURGICAL HISTORY Procedure Laterality Date CHOLECYSTECTOMY HX No family history on file. Social History Tobacco Use Smoking status: Never Smokeless tobacco: Never Vaping Use Vaping Use: Never used Substance and Sexual Activity Alcohol use: Yes Comment: weekends Drug use: Yes Types: Marijuana Sexual activity: Not on file ALLERGIES No Known Allergies Review of Systems Constitutional: Negative for chills and fever. HENT: Positive for sore throat. Negative for drooling, ear discharge, ear pain, facial swelling, mouth sores, trouble swallowing and voice change. Respiratory: Negative for cough and shortness of breath. Cardiovascular: Negative for chest pain. Gastrointestinal: Negative for abdominal pain, nausea and vomiting. Musculoskeletal: Negative for arthralgias, joint swelling, neck pain and neck stiffness. Skin: Negative for rash. Lesions on hands and feet - diagnosed with hand, foot, and mouth at urgent care Neurological: Negative for weakness and headaches. Psychiatric/Behaviora l: Negative for agitation and confusion. Physical Exam Vitals [03/09/231930] BP Pulse Temp Temp src Resp SpO2 Weight Height 139/95 (!) 99 36.8 ?C (98.2 ?F) Temporal 16 99 % 78.5 kg (173 lb 1 oz) 1.575 m (5' 2 ) Physical Exam Vitals and nursing note reviewed. Constitutional: General: She is not in acute distress. Appearance: She is not ill-appearing, toxic-appearing or diaphoretic. HENT: Head: Normocephalic and atraumatic. Jaw: No trismus. Mouth/Throat: Mouth: Mucous membranes are moist. No oral lesions or angioedema. Pharynx: Oropharynx is clear. Uvula midline. No pharyngeal swelling, posterior oropharyngeal erythema or uvula swelling. Tonsils: Tonsillar exudate (Right tonsil) present. No tonsillar abscesses. Comments: Tonsils are symmetric bilaterally. Small amount of exudate on right tonsil. Uvula midline, no elevation of the tongue, soft submandibular compartment. Voice normal. Handling secretions normally. Eyes: General: No scleral icterus. Conjunctiva/sclera: Conjunctivae normal. Neck: Trachea: Trachea and phonation normal. Cardiovascular: Rate and Rhythm: Normal rate and regular rhythm. Pulses: Normal pulses. Pulmonary: Effort: Pulmonary effort is normal. Breath sounds: Normal breath sounds. Abdominal: General: Abdomen is flat. Bowel sounds are normal. There is no distension. Palpations: Abdomen is soft. Tenderness: There is no abdominal tenderness. Musculoskeletal: Cervical back: Normal range of motion and neck supple. No rigidity. Skin: General: Skin is warm and dry. Capillary Refill: Capillary refill takes less than 2 seconds. Findings: No petechiae. Rash is not vesicular. Comments: Few areas of macular erythematous lesions on hands and feet. No vesicles. Skin intact. No cellulitis. Neurological: General: No focal deficit present. Mental Status: She is alert and oriented to person, place, and time. GCS: GCS eye subscore is 4. GCS verbal subscore is 5. GCS motor subscore is 6. Psychiatric: Mood and Affect: Mood normal. Behavior: Behavior normal. Diagnostic Testing ED Labs Ordered and Reviewed GROUP A STREPTOCOCCUS BY PCR - Normal Procedures ED Course / Clinical Impression Clinical Impressions as of 03/12/23 0809 Pharyngitis, unspecified etiology Recent diagnosis of Hand, foot and mouth disease MDM / Disposition / Plan Patient presents with sore throat since Thursday. She was diagnosed with gzjv-jnlm-gjh-mouth at urgent care. She reports lesions on her hands and feet which are improving. She is requesting be checked for strep. Labs Reviewed GROUP A STREPTOCOCCUS BY PCR - Normal On reevaluation: Patient resting comfortably in bed, no distress. (more content not included)... Normal [facility] S pyo DNA Throat Ql LISET+prob mike 03-09-2023 S. pyogenes DNA LISET+probe Ql (Throat) Not detected Normal Not detected [facility] Comment on above: Order Comment: Speci men Type: SWAB Ordering Facility: [facility] Address: [address] [place] [id number] Performed By: #### 6 [id number] #### [facility] CLIA [id number] [address] [place] [id number] [place] Encounters Encounter Date Encounter Type Care Provider Facility Start: 10-14-2023 End: 10-14-2023 ambulatory AMARILIS VELASQUEZ [facility] Start: 08-05-2023 End: 08-05-2023 ambulatory MARTINEZ LECHUGA [facility] Start: 06-29-2023 Telephone encounter Beth Santizo [facility] Comment on above: Care Coordination (Janeth pulliam [facility] ) Start: 03-09-2023 Emergency department patient visit JAD LEONG Facility:[facility] Payers Date Payer Category Payer Unknown [id number] 1990 Unknown [id number] 1990 Unknown [id number] 1990 Unknown [id number] Unknown [id number] Social History Date Type Detail Facility Tobacco smoking stat [facility] Tobacco smoking consumption unknown [facility] Start: 1990 Sex Assigned At Not on file [facility] Gender identity Not on file [facility] Telephone encounter Note 07-07-2023 Telephone Encounter - Yenny Mathews - 07/07/2023 2:24 PM EST Note Date & Type Note Facility 07-07-2023 Telephone encounter Note Form atting of this note might be different from the original. Received lab results for this pt, called [facility] to advise this is being sent to us in error. [facility] Note 07-07-2023 Telephone Encounter - Yenny Mathews - 07/07/2023 2:24 PM ESTTelephone Encounter - Beth Jhaveri MA - 06/29/2023 11:39 AM EST Note Date & Type Note Facility 07-07-2023 Miscellaneous Notes Formattin g of this note might be different from the original. Received lab results for this pt, called [facility] to advise this is being sent to us in error. Phone call to [facility] at: [phone]. I spoke with Yanni and informed her that Dr. Leong keeps receiving patients lab results and office notes. Dr. Leong has not seen the patient since 2014. Yanni will remove Dr. Leong from the patients profile and send all results to the PCP they have on file. Noted. documented in this encounter [facility] Telephone encounter Note 06-29-2023 Telephone Encounter - Beth Jhaveri MA - 06/29/2023 11:39 AM EST Note Date & Type Note Facility 06-29-2023 Telephone encounter Note Form atting of this note might be different from the original. Phone call to [facility] at: [phone]. I spoke with Yanni and informed her that Dr. Leong keeps receiving patients lab results and office notes. Dr. Leong has not seen the patient since 2014. Yanni will remove Dr. Leong from the patients profile and send all results to the PCP they have on file. Noted. [facility] Progress note 03-14-2023 Note Date & Type Note Facility 03-14-2023 Note HNO ID: [id number] Author: Note, Interface Service: ? Author Type: ? Type: Progress Notes Filed: 03/14/2023 5:28 AM Note Text: Epic Scheduled Downtime: 03/14/2023 1:00:00 AM to 03/14/2023 1:28:00 AM [facility] Summary Purpose Family History No Family History Records FoundNo Family History Records FoundNo Family History Records Found Advance Directives No Advanced Directives Records FoundNo Advanced Directives Records FoundNo Advanced Directives Records Found Additional Source Comments INFORMATION SOURCE (unrecogn ized section and content) DATE CREATED AUTHOR 03/15/2023 [facility] DATE CREATED AUTHOR AUTHOR'S ORGANIZ ATION 07/11/2023 [facility] DATE CREATED AUTHOR AUTHOR'S ORGANIZ ATION 10/16/2023 [facility] Reason for Visit (unrecogniz ed section and content) Reason Onset Date Comments Care Coordination 06/29/2023 Called [facility] FOR RECORDS PERTAINING TO PATIENTS WHO ARE [...] BE BASED ON THE PRIMARY CLINICAL RECORDS. [facility] provides no warranty or guarantee of the accuracy or completeness of information in this document.
[2024-03-25 13:05] LABS: Lipase 123 U/L (13-75)
[2024-03-28 16:09] LABS: Endomysial Antibody IgA Negative (Negative); Immunoglobulin A 226 mg/dL (87-352); t-Transglutaminase IgA <2 U/mL (0-3)
== END | disposition home or self-care (01) ==
LOC: LAB 11:57
PROVIDERS: PCP Family Medicine; Referring Provider Student in an Organized Health Care Education/Training Program; Visit Provider Student in an Organized Health Care Education/Training Program
DX: K90.0 Celiac disease (principal); R10.9 Unspecified abdominal pain
CPT/HCPCS: 36415; 82784; 83516; 83690; 86255

== ENCOUNTER → 2024-04-04 | Outpatient (CLI) | payer OTHER, SELFPAY ==
--- NOTE | 2024-04-04 09:11 | US_ITS ---
STUDY: ABDOMINAL ULTRASOUND - RIGHT UPPER QUADRANT; ELASTOGRAPHY REASON FOR VISIT: Female, 34 years old. Fatty infiltration of the liver. TECHNIQUE: Ultrasound evaluation of the right upper quadrant was performed with real-time and static lind-scale imaging. Point quantification shear wave elastography was performed ([employer]). TECHNICAL QUALITY: Adequate. COMPARISON comparison is made with prior study September 18, 2023.: None. FINDINGS: Liver: The liver is enlarged and measures 18 cm. There is increased echogenicity consistent with fatty infiltration. The bile ducts are within normal limits. There is hepatic color flow. The direction of portal flow is hepatopetal. There is no demonstrated mass lesion. Median liver stiffness measured 5.9 kPa. Gallbladder: The patient is status post cholecystectomy. Common Bile Duct (C.B.D.): The common bile duct measures 5.1 mm. A stent is seen within the common bile duct. Pancreas: There is normal echogenicity of the visualized pancreas. There is no demonstrated pancreatic mass or cyst. Right Kidney: Normal size of the right kidney. The right kidney measures 11.5 cm x 5.9 cm x 4.8 cm. Normal renal cortex. The right cortex measures 1.9 cm. There is no demonstrated renal mass or cyst. There is no right hydronephrosis. US/ABD Limited w/ Elastography IMPRESSION: 1. Liver stiffness measures 5.9 kPa compatible with F2-F3 (Mild to moderate liver fibrosis) Metavir score. 2. Mild hepatomegaly and fatty infiltration of the liver. Electronically Signed: Rudolph Cadena MD at 11:53 EST ,
== END | disposition home or self-care (01) ==
LOC: US 09:10
PROVIDERS: PCP Family Medicine; Referring Provider Internal Medicine Gastroenterology; Visit Provider Internal Medicine Gastroenterology
DX: K76.0 Fatty (change of) liver, not elsewhere classified (principal)
CPT/HCPCS: 76705; 76981

== ENCOUNTER 2024-06-06 14:03 | Outpatient (RCR) | payer OTHER, SELFPAY | END 2024-07-01 23:59 | LOC: NS 14:03 | PROVIDERS: PCP Family Medicine; Referring Provider Student in an Organized Health Care Education/Training Program; Visit Provider Student in an Organized Health Care Education/Training Program | DX: Z71.3 Dietary counseling and surveillance (principal); E66.9 Obesity, unspecified; K90.0 Celiac disease | CPT/HCPCS: 97802 ==

== ENCOUNTER 2025-03-30 09:37 | Emergency (ER) | payer SELFPAY ==
[2025-03-30 09:37] VITALS: BP 134/73; PULSE 82; RESP 16; TEMP 36.8; O2SAT 100; BMI 33.2
--- NOTE | 2025-03-30 10:21 | CT_ITS ---
PROCEDURE: CT/Abdomen/Pelvis without Cont
--- NOTE | 2025-03-30 10:32 | EX.ED.DYSGE1 ---
HPI History of Present Illness Chief Complaint: Flank Pain Narrative Narrative: Patient is a 35-year-old female with past medical history of alcohol use nightly wine, migraine headaches, status post cholecystectomy, biliary ductal abnormality with stent placement, urolithiasis who presents to the emergency department with a chief complaint of left flank pain. States that she has had pain for a few days have been progressively worsening states that she is unsure if this feels like kidney stone or not as she has not had them in quite some time. Patient denies or sick contacts denies any injury to her back. States that she tried take ibuprofen earlier for her pain which did not help prompting her to come here for further evaluation management. Denies any history of IV drug use [facility] Medical History (infant) Wears glasses Alcohol use Migraine headache Loss of consciousness Heartburn Non-smoker History of edema Bile duct abnormality Acute cholecystitis Rh negative state in antepartum period Supervision of normal History of anxiety Home Medications ?Medication ?Instructions ?Recorded ?Last Taken ?Type vit no.95-ferrous 1 tab PO DAILY 11/12/23 12/16/23 12:00 History fumarate 28 mg-folic acid 800 mcg 1 TAB tablet ( Formula) ibuprofen 800 mg tablet 800 mg PO Q8H PRN pain #30 tabs 12/18/23 Unknown Rx dicyclomine 20 mg tablet 20 mg PO Q6 PRN discomfort/pain 03/25/24 Unknown Rx #20 tabs omeprazole 20 mg capsule,delayed 20 mg PO QDAY #90 caps 03/25/24 Unknown Rx release dicyclomine 20 mg tablet 20 mg PO TID PRN abdominal pain 03/30/25 Unknown Rx #20 tabs ondansetron 4 mg disintegrating 4 mg PO Q6H PRN nausea and 03/30/25 Unknown Rx tablet vomiting #20 tabs Allergy/AdvReac Type Severity Reaction Status Date / Time gluten Allergy Abd Verified 03/30/25 09:40 cramps/diarrhea Family History Mother Diabetes Hypertension Hyperlipidemia Father Diabetes Hyperlipidemia Hypertension Sister Cancer thyroid cancer Endometriosis Surgical History History of laparoscopic cholecystectomy (~11/2019) Social History adopted: No household members: spouse and children number of children: 2 current occupational status: unemployed current occupation: [employer] pets and animals: Yes pets and animals: dog(s) and other details: RABBIT history of recent travel: Yes ([place] ) out of state: Yes out of country: No sexually active: Yes Smoking Status: Never smoker alcohol intake: former details: social- NOT WHILE substance use type: marijuana well-balanced diet: about half the time caffeine: No eating out: 1-3 times/week during the past year weight has: remained stable what type of physical activity do you participate in: none cami/worship: [employer]ism seatbelt use: always do you feel safe at home: Yes additional social history: [employer] ROS ROS ED ROS Narrative Constitutional: Denies fevers or chills Abdomen: Denies any abdominal pain vomiting diarrhea : Denies any painful urination or increased frequency of urinating Neurological: Denies numbness, wheeze, tingling Musculoskeletal: Complains of left flank pain as noted above Skin: Denies any rashes or lesions EXAM Physical Exam Narrative Exam Narrative: General: Patient was lying in bed rest comfortably did appeared to be uncomfortable secondary to her left-sided back pain Head: Atraumatic, normocephalic Eyes: PERRL bilaterally, EOMI bilaterally, no conjunctival injection noted Neck: Soft, supple, trachea midline Cardiovascular: Regular rate and rhythm Respiratory: Clear to auscultation bilaterally Abdomen: Soft, nondistended, no tenderness to palpation Musculoskeletal: Left-sided CVA tenderness noted exam, no tenderness palpation midline of the thoracolumbar spine Extremities: +5/5 strength noted in the bilateral lower extremities Neurological: Patient follow commands that she was at [facility] the year is 2024 sensation grossly intact Skin: Warm, dry, intact no rashes or lesions noted Const Vital Signs: 03/30/25 09:37 03/30/25 11:40 Temperature 98.3 F Temperature Source Oral Pulse Rate 82 99 Respiratory Rate 16 14 Blood Pressure 134/73 H 136/71 H Blood Pressure Mean 93 92 Pulse Ox 100 100 Oxygen Delivery Method Room Air Room Air MDM MDM MDM Narrative Medical decision making narrative: Patient is a 35-year-old female who presents to the emergency department the chief complaint of left flank pain. On the differential diagnose includes but not limited to urolithiasis, UTI, pyelonephritis. Once workup is obtained and reviewed she will be reevaluated patient be given IV fluids and Zofran. Patient is a CBC reviewed showed no evidence leukocytosis white blood count 10.4, hemoglobin 14.7, platelet count of 267. Patient sodium was 138, potassium normal 4.1, creatinine 0.82. Patient AST and ALT were 36 and 63 respectively total bilirubin normal at 0.41. Patient is negative. Patient urinalysis reviewed showed no evidence of infection. Patient CT ab pelvis without contrast reviewed and showed no acute findings there was a stent within the common bile duct as well as the pancreatic duct status postcholecystectomy. On reevaluation patient she is feeling better she would like to go home at this point time. Did discuss results with her. She is vies follow-up with her doctor in outpatient setting and return with worsening symptoms or other concerns. She is agreeable to plan all question concerns answered she was discharged home in stable condition Lab Data Labs: Laboratory Results - last 24 hr 03/30/25 10:25 WBC 10.4 RBC 4.93 Hgb 14.7 Hct 43.9 MCV 89.0 MCH 29.8 MCHC 33.5 RDW Std Deviation 41.5 RDW Coeff of Tanja 12.9 Plt Count 267 MPV 9.6 Immature Gran % (Auto) 0.300 Neut % (Auto) 66.1 Lymph % (Auto) 25.1 Jenkins % (Auto) 5.3 Eos % (Auto) 2.5 Baso % (Auto) 0.7 Absolute Neuts (auto) 6.9 Absolute Lymphs (auto) 2.61 Nucleated RBC % 0 Sodium 138 Potassium 4.1 Chloride 105 Carbon Dioxide 21.9 Anion Gap 11 BUN 13 Creatinine 0.82 Estim Creat Clear Calc 96.16 Est GFR (MDRD) Non-Af 96 BUN/Creatinine Ratio 15.4 Glucose 97 Calcium 8.8 Total Bilirubin 0.41 AST 36 H ALT 63 H Alkaline Phosphatase 60 Total Protein 6.9 Albumin 4.3 Globulin 2.6 Albumin/Globulin Ratio 1.7 Serum , Qual NEGATIVE Urine Color Yellow Urine Clarity Sl. Cloudy Urine pH 6.0 Ur Specific [place] 1.015 Urine Protein Negative Urine Glucose (UA) Normal Urine Ketones Negative Urine Occult Blood Negative Urine Nitrite Negative Urine Bilirubin Negative Urine Urobilinogen Normal Ur Leukocyte Esterase 25 H Urine RBC 0 SEEN Urine WBC 0-5 SEEN Ur Squamous Epith Cells 10-25 SEEN Urine Bacteria RARE Urine Mucus 0 SEEN Radiography Diagnostic Testing: Clinical Impression(s) from Imaging Studies Abdomen/Pelvis CT 03/30/25 10:21 IMPRESSION: A stent is seen within the common bile duct as well as in the pancreatic duct. The patient is status post cholecystectomy. Reading Location: [id number] Discharge Plan Triage Chief Complaint: Flank Pain ED Provider: Miguelangel Hawthorne Dx/Rx/DC Orders Clinical Impression: Abdominal pain, Acute flank pain, Status post cholecystectomy Prescriptions: New dicyclomine 20 mg tablet 20 mg PO TID PRN (Reason: abdominal pain) Qty: 20 0RF ondansetron 4 mg tablet,disintegrating 4 mg PO Q6H PRN (Reason: nausea and vomiting) Qty: 20 0RF No Action PNV no.95-ferrous fumarate-FA [ Formula] 28 mg iron- 800 mcg tablet 1 tab PO DAILY ibuprofen 800 mg tablet 800 mg PO Q8H PRN (Reason: pain) Qty: 30 0RF omeprazole 20 mg capsule,delayed release(DR/EC) 20 mg PO QDAY Qty: 90 2RF dicyclomine 20 mg tablet 20 mg PO Q6 PRN (Reason: discomfort/pain) Qty: 20 0RF Primary Care Provider: John Colindres Referrals: John Colindres MD [Primary Care Provider, Medical] Activity Restrictions/Additional Instructions: Your blood work did not show any acute findings here your CT did not show any acute findings either. Use prescriptions as prescribed. Follow-up your doctor in outpatient setting and return with worsening symptoms or any other concerns Print Language: Russian Disposition Disposition: Home, Self Care
[2025-03-30 10:35] LABS: Mucous, Urine 0 SEEN /hpf (<or=2+); Red Blood Cells-Urine 0 SEEN /hpf (0-5)
[2025-03-30 10:39] LABS: Color, Urine Yellow (Yellow); Glucose, Dipstick Normal (Normal); Hematocrit 43.9 % (37-47); Hemoglobin 14.7 g/dL (12.0-15.0); Immature Granulocytes Count 0.030 X10^3/uL (0.0-0.0); Ketone-Dipstick Negative (Negative); Leukocyte Esterase-Dipstick 25 /ul (Negative); Mean Corp Hgb Conc 33.5 g/dL (32-36); Mean Corpuscular Volume 89.0 fL (81-99); Mean Platelet Vol. 9.6 fl (6.2-12.0); NRBC Flagged by Analyzer 0 % (0-5); Nitrite-Dipstick Negative (Negative); Occult Blood-Urine Negative /ul (Negative); Platelet Count 267 K/mm3 (150-450); Protein-Dipstick Negative (Negative); RBC Distribution Width CV 12.9 % (11.6-14.6); RBC Distribution Width SD 41.5 fl (35.1-43.9); Red Blood Count 4.93 M/mm3 (4.2-5.4); Specific Gravity, Urine 1.015 (1.002-1.030); Urine Bilirubin Dipstick Negative (Negative); White Blood Count 10.4 K/mm3 (4.4-11.0)
[2025-03-30] MEDS: 0.9% Normal Saline (1000mL) 1,000 ML 999 ML IV (10:40)
[2025-03-30 10:50] LABS: Squamous Epithelial Cells - UA 10-25 SEEN /hpf (5-10)
[2025-03-30 10:51] LABS: Internal QC Validated? YES +Cl - CLEAR BKGD; Pregnancy, Serum, hCG Quali. NEGATIVE Negative; Record Kit Lot#, Serum Preg. 0000980607
[2025-03-30 11:07] LABS: AST(SGOT) 36 U/L (<=31); Alanine Aminotransfer ALT/SGPT 63 U/L (<=34); Albumin, Serum 4.3 g/dL (3.5-5.0); Alkaline Phosphatase 60 U/L (35-104); Anion Gap 11 (5-15); BUN 13 mg/dL (4-19); BUN/Creat Ratio 15.4 RATIO (10-20); Calcium,Total 8.8 mg/dL (7.6-11.0); Carbon Dioxide 21.9 mmol/L (21.0-32.0); Chloride 105 mmol/L (98-108); Estimated Creatinine Clearance 96.16 ml/min (50-250); Globulin 2.6 g/dL (2.2-4.2); Glucose 97 mg/dL (70-99); Potassium 4.1 mmol/L (3.3-5.1)
[2025-03-30 11:40] VITALS: BP 136/71; PULSE 99; RESP 14; O2SAT 100
[2025-03-30 13:26] VITALS: BP 168/58; PULSE 72; RESP 16; TEMP 36.6; O2SAT 99
== END 2025-03-30 13:27 | disposition home or self-care (01) ==
PROVIDERS: Emergency Provider Emergency Medicine; PCP Family Medicine; Visit Provider Emergency Medicine
DX: R10.A2 Flank pain, left side (principal); Z96.89 Presence of other specified functional implants; Z90.49 Acquired absence of other specified parts of digestive tract
CPT/HCPCS: 74176; 80053; 81001; 84703; 85025; 96361; 96374; 96375; 99283; J2405